=== PATIENT | male | born 1970 | race Caucasian/White ===

== ENCOUNTER → 2017-10-06 07:29 | Outpatient (CLI) | payer OTHER, SELFPAY ==
[2017-10-06 10:28] LABS: AST(SGOT) 16 U/L (15-37); Alanine Aminotransfer ALT/SGPT 39 U/L (16-61); Albumin, Serum 3.8 g/dL (3.2-5.0); Alkaline Phosphatase 77 U/L (45-117); Anion Gap 7 (5-15); BUN 15 mg/dL (7-18); BUN/Creat Ratio 16.5 RATIO (10-20); Calcium,Total 8.8 mg/dL (8.5-10.1); Chloride 107 mmol/L (98-107); Creatinine, Serum 0.91 mg/dL (0.70-1.30); EST Glomerular Filtration Rate 95 mL/min (>60); Est Glom Filt Rate - Afr Amer 115 mL/min (>60); Globulin 3.7 g/dL (2.2-4.2); Glucose 88 mg/dL (74-106); Potassium 3.9 mmol/L (3.5-5.1); Protein, Total 7.5 g/dL (6.4-8.2); Sodium Level 142 mmol/L (136-145)
[2017-10-06 11:07] LABS: Microalbumin,Random Urine < 5.0 mg/L (NO RANGE EST.)
== END ==
PROVIDERS: Family Provider Family Medicine; PCP Family Medicine; Visit Provider Family Medicine
DX: I10 Essential (primary) hypertension (principal)
CPT/HCPCS: 36415; 80053; 82043; 82570

== ENCOUNTER 2019-03-26 19:22 | Observation (INO) | payer OTHER, SELFPAY ==
[2019-03-26] VITALS (7 sets, daily range): BP systolic 134–170; BP diastolic 67–88; PULSE 60–85; RESP 12–19; TEMP 36.3–36.9; O2SAT 94–100; BMI 35.4; BMI 34.9; BMI 35.0
--- NOTE | 2019-03-26 19:29 | RAD_ITS ---
STUDY: X-RAY CHEST REASON FOR EXAM: Male, 48 years old. Chest pain TECHNIQUE: Frontal view of the chest COMPARISON: X-ray chest April 23, 2017 FINDINGS: The lungs are clear. There are no pleural effusions. There is no pneumothorax. The heart is normal in size. The visualized osseous structures are within normal limits. RAD/Chest 1 View (Portable) IMPRESSION: No acute thoracic pathology. Electronically Signed: Royce Asif, at 20:20 EDT Tel , Service support ,
--- NOTE | 2019-03-26 19:29 | EKG12_ITS ---
Test Reason : CP Blood Pressure : / mmHG Vent. Rate : 078 BPM Atrial Rate : 078 BPM P-R Int : 196 ms QRS Dur : 098 ms QT Int : 386 ms P-R-T Axes : 018 021 001 degrees QTc Int : 440 ms Normal sinus rhythm Nonspecific T-Wave Abnormality Confirmed by DEVANTE MARTINS, MAUDE ([id number]), restaurant expeditor BRIANNA CONROY ([id number]) on 03/29/2019 1:02:58 PM Referred By: CIERA Confirmed By:MAUDE LOW MD
[2019-03-26 19:45] LABS: Absolute Lymphocyte Count 2.85 X10^3/uL (0.83-4.51); Absolute Neutrophil Count 5.8 X10^3/uL (2.0-7.7); Basophil# 0.05 X10^3/uL; Basophil% 0.5 % (0-1); Eosinophil# 0.12 X10^3/uL; Eosinophils% 1.3 % (0-5); Hemoglobin 15.7 g/dL (13.0-16.5); Lymphocyte # 2.85 X10^3/ul (4.0); Lymphocyte % 29.8 % (19-41); Mean Corp Hgb Conc 34.1 g/dL (32-36); Mean Corpuscular Hgb 30.7 pg (27.0-32.0); Mean Corpuscular Volume 89.8 fL (80-94); Mean Platelet Vol. 10.6 fl (6.2-12.0); Monocyte# 0.77 X10^3/uL; NRBC Flagged by Analyzer 0 % (0-5); Neutrophil # 5.76 X10^3/uL (2.7-7.7); Neutrophil % 60.2 % (47-70); Platelet Count 216 K/mm3 (150-450); RBC Distribution Width CV 12.1 % (11.6-14.6); Red Blood Count 5.12 M/mm3 (4.6-6.2); White Blood Count 9.6 K/mm3 (4.4-11.0)
[2019-03-26] MEDS: Aspirin 81 MG TAB.CHEW 324 MG PO (19:49)
[2019-03-26 19:59] LABS: Anion Gap 6 (5-15); BUN 14 mg/dL (7-18); Calcium,Total 9.2 mg/dL (8.5-10.1); Chloride 108 mmol/L (98-107); Creatinine, Serum 1.17 mg/dL (0.70-1.30); EST Glomerular Filtration Rate 70 mL/min (>60); Est Glom Filt Rate - Afr Amer 85 mL/min (>60); Estimated Creatinine Clearance 78.86 ml/min; Glucose 109 mg/dL (74-106); Potassium 3.5 mmol/L (3.5-5.1); Sodium Level 141 mmol/L (136-145)
--- NOTE | 2019-03-26 21:25 | PCM.HP.STD ---
Problem List (1) Chest pain Status: Acute History of Present Illness Date of Admission: 03/26/19 Chief Complaint: CHEST PAIN The patient is a 48 year old M with a significant history of hypertension who presented with excruciating progressively worsening substernal chest pain that radiated to his left arm. Initially his chest pain was episodic but it became constant and was progressively worsening. He denies any associated nausea; vomiting or diaphoresis. He describes chest pain as tightness. He complains of shortness of breath has been going on for 1 year but not associated with his chest pain that started on the day of presentation. He occasionally he uses 2 pillows instead of one pillow to sleep. He denies any paroxysmal nocturnal dyspnea. Past Medical History Medical History: Medical History (Last Reviewed 03/27/19 @ 01:58 by Jerry Ferrer MD) HTN (hypertension) I10 Allergies No Known Allergies Allergy (Verified 03/26/19 19:24) Home Medications: Ambulatory Orders Medication Instructions Recorded Losartan Potassium 25 mg PO DAILY 04/23/17 Multivitamins,Therapeutic 1 tablet PO DAILY 04/23/17 [Multivitamin] Ascorbic Acid [Vitamin C] 1,000 mg PO 03/26/19 Fluticasone 0.05% [Flonase Nasal 1 spray NASAL DAILY 03/26/19 [place]] Surgical History: - - Club feet surgery Smoking Status: Never smoker Alcohol: Occasional - *Family History Maternal History Items: Diabetes Paternal History Items: Diabetes, Heart Disease Review of Systems Constitutional: Denies: Chills, Fever, Weight Change HEENT: Denies: Head Aches, Sinus Congestion, Sinus Drainage Cardiovascular: Reports: Chest Pain, Chest Tightness, Orthopnea. Denies: Palpitations Respiratory: Reports: Shortness of Breath. Denies: Cough, Sputum production Gastrointestinal: Denies: Abdominal Pain, Nausea, Vomiting Genitourinary: Denies: Dysuria Musculoskeletal: Denies: Joint Pain, Joint Tenderness Skin: Denies: Rash, Wounds Neurological: Denies: Numbness, Tingling, Focal weakness Psychiatric: Denies: Anxiety, Depression, Homicidal Ideations, Suicidal Ideations Hematologic/ Lymphatic: Denies: Easy Bruising, Easy Bleeding VTE Information - Inpt Only VTE Present on Admission: No VTE Mechan Device Prophylaxis: SCD's VTE Pharm Prophylaxis ordered?: No Patient Problems: Active and Suspected Problems (Last Updated 03/26/19 @ 22:39 by Jerry Ferrer MD) Chest pain (Acute) - Physical Exam General: Alert, Oriented x3, Cooperative HEENT: Atraumatic, PERRLA, EOMI, Normocephalic Neck: Supple, No JVD, Negative Carotid Bruits Lungs: Clear to auscultation, Normal air movement Cardiovascular: Regular rate, No murmurs Abdomen: Bowel Sounds Present, Soft, Non Tender Extremities: No edema, Capillary Refill Less than 3 Seconds Skin: No rashes, No breakdown Musculoskeletal: No Tenderness to Palpation of Joints or Extremities Neurological: Cranial nerves II-XII grossly intact Psych/Mental Status: Normal Affect, Appropriate Vital Signs Temp Pulse Resp BP Pulse Ox 98.4 F 71 15 139/86 H 99 03/26/19 19:23 03/26/19 20:08 03/26/19 20:08 03/26/19 20:08 03/26/19 20:08 Oxygen Flow Rate (L/min) 2 Oxygen Delivery Method Nasal [place] Weight: 111.8 kg Body Mass Index (BMI) 35.4 Laboratory Tests Past 24 Hrs 03/26/19 03/26/19 19:20 19:20 WBC 9.6 RBC 5.12 Hgb 15.7 Hct 46.0 MCV 89.8 MCH 30.7 MCHC 34.1 RDW Std Deviation 40.0 RDW Coeff of Julio César 12.1 Plt Count 216 MPV 10.6 Immature Gran % (Auto) 0.200 Neut % (Auto) 60.2 Lymph % (Auto) 29.8 [place] % (Auto) 8.0 Eos % (Auto) 1.3 Baso % (Auto) 0.5 Absolute Neuts (auto) 5.8 Absolute Lymphs (auto) 2.85 Nucleated RBC % 0 Sodium 141 Potassium 3.5 Chloride 108 H Carbon Dioxide 27.0 Anion Gap 6 BUN 14 Creatinine 1.17 Estim Creat Clear Calc 78.86 Est GFR (MDRD) Af Amer 85 Est GFR (MDRD) Non-Af 70 BUN/Creatinine Ratio 12.0 Glucose 109 H Calcium 9.2 Troponin I < 0.015 Assessment/Plan All Active Problems (Last Updated 03/26/19 @ 22:39 by Jerry Ferrer MD) Chest pain (Acute) The patient is a 48 year old M with a significant history of hypertension who presented with excruciating progressively worsening substernal chest pain. Chest Pain Admit to a monitored bed on PCU CXR independently reviewed confirms no acute cardiopulmonary process. EKG independently reviewed confirms nonspecific T wave abnormalities in inferior leads which is unchanged from previous EKGs. Received aspirin 324 mg in the emergency department. ASA 81 mg p.o. daily ordered SL NTG 0.4 mg prn as needed for chest pain Morphine as needed for pain We will check lipid panel. Initial cardiac enzymes was unremarkable. Serial cardiac enzymes ordered Stat EKG as needed for chest pain Treadmill Stress test in the AM if the cardiac enzymes are negative Transthoracic echocardiogram ordered. Hypertension On presentation his blood pressure was not within goal Losartan continued Trend blood pressures and adjust blood pressure medications. DVT prophylaxis SCD Code Visit OBSV E&M: 07875 Initial observation care L3
--- NOTE | 2019-03-26 21:29 | ED.VIS.GEN ---
History of Present Illness Chief Complaint: Chest Pain Informant: Patient Onset: Today Timing: Continuous Current Severity: Moderate Maximum Severity: Moderate Narrative: She presented with chest pain that started earlier today. It is now almost fully resolved. He describes an ache, radiating to his left arm. He has some risk factors. He denies any fever or chills. No back pain or tearing sensation no DVT or PE risk factors. Past Medical History - Allergies and Home Meds Allergies/Adverse Reactions: Allergies No Known Allergies Allergy (Verified 03/26/19 19:24) Primary Care Physician: Santos David MD [Primary Care Provider] - Prior records reviewed: Yes Past Medical History: - - Hypertension hypercholesterolemia Smoking Status: Never smoker Review of Systems All systems negative except as indicated General: Denies: Fever Cardiovascular: Reports: Chest pain. Denies: Palpitations Respiratory: Denies: Dyspnea, Cough Genitourinary: Denies: Dysuria Musculoskeletal: Denies: Myalgias Skin: Denies: Rash Neurological: Denies: Headache, Weakness Endocrine: Denies: Polyuria Physical Exam Vital Signs/Narrative: Vital Signs Temp Pulse Resp BP Pulse Ox 03/26/19 20:08 71 15 139/86 H 99 03/26/19 19:23 98.4 F 85 18 170/88 H 98 General: Well nourished, Well developed Head: Normocephalic, Atraumatic Eyes: Perrl, EOMI ENT: Moist mucous membranes Neck: Supple Cardiovascular: Regular rate, Regular rhythm Respiratory: No distress Abdomen: Soft, Nontender Back: Nontender Extremities: Nontender Skin: Normal color Neurological: Normal Strength, Normal Sensation Psychological: Normal affect Diagnostic/Tx/Re-eval - Rhythm Strip Rhythm Strip: Sinus Rhythm Rate: 78 Ectopy: None - EKG Initial EKG Interpretation: Sinus Rhythm, - - Normal sinus rhythm with a rate 78. Normal VT and QTc intervals. Interpreted by emergency doctor - Medical Decision Making Patient has a heart score of 4. I had a long conversation with him. I believe he is best served by being admitted to the hospital. He will need a cardiac work-up. He has no DVT risk factors. Disposition admit stable condition ED Disposition - Plan for ED Patient: Diagnosis: Chest pain Referrals: Santos David MD [Primary Care Provider] -
--- NOTE | 2019-03-26 22:17 | ED.RN ---
NO DELTA TROPONIN AT THIS TIME PER MD.
--- NOTE | 2019-03-26 22:43 | EKG12_ITS ---
Test Reason : CP ADMIT Blood Pressure : / mmHG Vent. Rate : 056 BPM Atrial Rate : 056 BPM P-R Int : 176 ms QRS Dur : 104 ms QT Int : 438 ms P-R-T Axes : 026 027 011 degrees QTc Int : 422 ms Sinus bradycardia Otherwise normal ECG When compared with ECG of 23-APR-2017 05:21, No significant change was found Confirmed by SHERI YARBROUGH ([id number]), market editor KERVIN JUAREZ ([id number]) on 04/02/2019 2:43:41 PM Referred By: DR BURGESS Confirmed By:SHERI YARBROUGH
--- NOTE | 2019-03-26 22:43 | ECHOCS_ITS ---
Reason For Study: DYSPNEA/SOB Procedure This was a 2D Doppler, Color Flow transthoracic echocardiogram. The study was technically difficult. Contrast injection was performed. Exam performed in department. Left Ventricle Normal LV size. Left ventricular systolic function is normal. The estimated ejection fraction is 65 %. No evidence for diastolic dysfunction. No regional wall motion abnormalities noted. Right Ventricle Normal RV size. Normal systolic function. Atria Normal left atrium. Normal right atrium. No doppler evidence for ASD. Bubble contrast study negative for right to left interatrial shunt. Mitral Valve There is no mitral annular calcification. Normal mitral valve. Trivial mitral valve insufficiency. Tricuspid Valve Normal tricuspid valve. Trivial tricuspid valve insufficiency. Unable to estimate RV systolic pressure/pulmonary artery pressure due to technically difficult study. Aortic Valve Trisinus/trileaflet aortic valve. Normal aortic valve. Pulmonic Valve The pulmonic valve is not well visualized. Great Vessels Normal sized aortic root. Pericardium/Pleural No pericardial effusion. Medication Diluted definity 2ml given slow IV push to enhance endocardial definition. Performed a rapid injection of agitated mix of 9 cc saline and 1cc air to assess for atrial septal defect. MMode/2D Measurements & Calculations LVIDd: 4.5 cm IVSd: 0.89 cm Ao root diam: 3.2 cm LVIDs: 2.7 cm LVPWd: 0.86 cm RVDd: 3.3 cm FS: 38.4 % LAV(MOD-bp): 42.6 ml LVAd ap4: 36.5 cm2 SV(MOD-sp4): 85.0 ml LAV(MOD-bp) Indexed: 18.8 ml/m2 EDV(MOD-sp4): 125.6 ml LAV(MOD-sp2): 40.4 ml EDV(sp4-el): 130.8 ml LAV(MOD-sp4): 42.4 ml LVAs ap4: 18.4 cm2 ESV(MOD-sp4): 40.5 ml ESV(sp4-el): 41.7 ml EF(MOD-sp4): 67.7 % EF(sp4-el): 68.1 % SV(sp4-el): 89.0 ml LA A4 area: 16.3 cm2 LA dimension(2D): 3.8 cm RA A4 area: 15.3 cm2 Time Measurements MV dec time: 0.19 sec Doppler Measurements & Calculations MV E max nima: 53.2 cm/sec Lat Peak E' Nima: 12.4 cm/sec Med Peak E' Nima: 9.6 cm/sec MV A max nima: 47.7 cm/sec E/E' lat: 4.3 E/E' med: 5.5 MV E/A: 1.1 Ao V2 max: 106.1 cm/sec LV V1 max: 78.5 cm/sec PA V2 max: 87.1 cm/sec Ao max P.5 mmHg LV V1 max P.5 mmHg Interpretation Summary The study was technically difficult. Contrast injection was performed. Left ventricular systolic function is normal. The estimated ejection fraction is 65 %. Trivial mitral valve insufficiency. Trivial tricuspid valve insufficiency. Unable to estimate RV systolic pressure/pulmonary artery pressure due to technically difficult study. No evidence for diastolic dysfunction. Bubble contrast study negative for right to left interatrial shunt. Ordering Physician: Jerry Ferrer Referring Physician: VERENA OLGUIN Performed By: Reyna Watkins RDCS
[2019-03-27 02:06] LABS: Prothrombin Time (Protime)PT. 13.4 SECONDS (11.7-14.9)
[2019-03-27 02:23] LABS: Cholesterol 177 mg/dL (200); High Density Lipoprotein 38 mg/dL; Triglycerides 169 mg/dL; Very Low Density Lipoprotein 34 mg/dL (5-40)
[2019-03-27 03:00] VITALS: PULSE 53
[2019-03-27 04:30] VITALS: BP 110/62; PULSE 55; RESP 16; TEMP 36.6; O2SAT 97
[2019-03-27] MEDS: Aspirin E.C. 81 MG Tablet PO (05:04)
[2019-03-27] MEDS: Losartan Potassium 25 MG Tablet PO (05:04)
--- NOTE | 2019-03-27 05:55 | EKG12_ITS ---
Test Reason : AM EKG Blood Pressure : / mmHG Vent. Rate : 054 BPM Atrial Rate : 054 BPM P-R Int : 200 ms QRS Dur : 100 ms QT Int : 444 ms P-R-T Axes : 009 020 008 degrees QTc Int : 421 ms Sinus bradycardia Otherwise normal ECG When compared with ECG of 26-MAR-2019 23:24, MANUAL COMPARISON REQUIRED, DATA IS UNCONFIRMED Confirmed by SHERI YARBROUGH ([id number]), multimedia editor KERVIN JUAREZ ([id number]) on 04/02/2019 2:44:46 PM Referred By: DR BALL Confirmed By:SHERI YARBROUGH
[2019-03-27] MEDS: Multivitamins,Therapeutic Tablet 1 TABLET PO (09:23)
[2019-03-27 09:28] VITALS: BP 126/77; PULSE 67; RESP 17; TEMP 36.6; O2SAT 95
[2019-03-27 09:43] VITALS: PULSE 69
--- NOTE | 2019-03-27 10:26 | STRESSREP_ITS ---
Stress Test Report Date: 03-27-19 Procedure: Exercise tolerance test/imaging study Indications: Chest pain Consent: Per the patient Procedure: The patient exercised on a Juan Carlos protocol for 9 minutes completing Stage III achieving a peak heart rate of 169 bpm (98 % predicted maximal heart rate) with a peak blood pressure 190/94 mmHg and a peak MET capacity of 10 METs. The baseline ECG demonstrated sinus bradycardia. The peak exercise ECG demonstrated no obvious ECG changes. There was an isolated PVC in recovery. The functional capacity was considered good. There was no complaint of chest discomfort during exercise or recovery. The examination was discontinued secondary to dyspnea and leg discomfort. Impression: 1. Technically adequate (percent predicted maximal heart rate greater than 85%) exercise tolerance test 2. Peak exercise ECG with no obvious ECG changes 3. There was an isolated PVC in recovery 4. Nuclear images pending Myocardial perfusion imaging study: Technique: The patient was injected with 14.7 mCi of technetium 99m Cardiolite and subsequently rest SPECT Cardiolite nuclear imaging was obtained in the horizonta l long, vertical long, and short axis views. The patient exercised on a Juan Carlos protocol for 9 minutes completing Stage III achieving a peak heart rate of 169 bpm (98 % predicted maximal heart rate) with a peak blood pressure 190/94 mmHg and a peak MET capacity of 10 METs. The patient was injected with 44.8 mCi of technetium 99m Cardiolite and subsequently stress SPECT Cardiolite nuclear imaging was obtained in the horizontal long, vertical long, and short axis views. A gated Cardiolite study at peak stress was obtained. Interpretation: Rest and stress SPECT Cardiolite nuclear imaging status post realignment, normalization, and attenuation correction, demonstrates at rest the appearance of an area of diminished tracer uptake in portions of the mid to distal anterior segments which status post stress appears to improve and/or normalize. There are similar type findings on the resting and stress polar map images. There is end systolic thickening and brightening. The gated Cardiolite study demonstrates myocardial thickening and inward wall motion. The reported LVEF is 70 %. Impression: 1. Rest and stress SPECT Cardiolite nuclear imaging demonstrate myocardial perfusion changes at rest which appear to improve status post stress appearing compatible shifting soft tissue attenuation/artifact with no myocardial perfusion changes considered diagnostic for associated stress-induced myocardial ischemia. 2. The gated Cardiolite study reports an LVEF of 70 %. This note was generated with [employer] software. It may contain incorrect words, spelling, and punctuation that were not noted in checking the note before signing.
--- NOTE | 2019-03-27 10:38 | DCINST_ITS ---
- Discharge Diagnoses Current Active Problems: Current Active and Chronic Problems (Last Reviewed 03/27/19 @ 01:58 by Jerry Ferrer MD) Chest pain (Acute) You will use the following diet at home:: No restrictions Your food should be the consistency of: Regular Your liquids should be the consistency of: Regular/Thin Instructions: CHEST PAIN, NonCardiac Allergies/Adverse Reactions: Allergies No Known Allergies Allergy (Verified 03/26/19 19:24) Medications to take at Discharge Losartan Potassium 25 mg PO DAILY 04/23/17 Multivitamins,Therapeutic [Multivitamin] 1 tablet PO DAILY 04/23/17 Ascorbic Acid [Vitamin C] 1,000 mg PO 03/26/19 Fluticasone 0.05% [Flonase Nasal [place]] 1 spray NASAL DAILY 03/26/19 Primary Care Physician: Santos David MD [Primary Care Provider] - Within 2 Weeks Test Results: Test results from this visit will be discussed in further detail at your follow- up appointment, if applicable. Please Follow Up With: Gastroenterology When: 1-2 months Proposed Discharge Date: 03/27/19
[2019-03-27 10:39] VITALS: BP 126/77; PULSE 67; RESP 17; TEMP 36.6; O2SAT 95
--- NOTE | 2019-03-27 10:39 | DS.PCM_ITS ---
Discharge Date and Diagnosis - Problem List Patient Problems: Active and Suspected Problems (Last Reviewed 03/27/19 @ 01:58 by Jerry Fererr MD) Chest pain (Acute) Date of Admission: 03/26/19 Date of Discharge: 03/27/19 - Primary Discharge Diagnosis Active and Suspected Problems (Last Reviewed 03/27/19 @ 01:58 by Jerry Ferrer MD) Chest pain (Acute) Hospital Course and Treatment Imaging Results: 03/27/19 05:55 Nuclear Stress Test - Treadmil [NM] AM (NON MEDS) Operations: None Procedures: None Summary of Care Provided: The patient is a 48 year old M presents with chest pain. Midsternal while he was eating. He underwent a stress that was negative. Suspect GI (esophageal spasm). Patient occasionally with reflux. I advised to wait several hours after eating before going to sleep. Follow up with GI as outpt. [] Patient Problems: Active and Suspected Problems (Last Reviewed 03/27/19 @ 01:58 by Jerry Ferrer MD) Chest pain (Acute) - Physical Exam General: Alert, No apparent distress HEENT: Atraumatic, Normocephalic Oral: Moist Mucosa, No Gingival or Mucosal Lesions/ Ulcerations Neck: No Nodes, Thyroid Normal Size and Texture Lungs: Clear to auscultation, Normal air movement, No rhonchi, No wheeze Cardiovascular: Regular rate, Regular Rhythm, Normal S1, Normal S2, No murmurs Abdomen: Bowel Sounds Present, Soft, Non Tender, Non-Distended, No Hepato- splenomegaly Psych/Mental Status: Normal Affect, Appropriate Vital Signs Temp Pulse Resp BP Pulse Ox 36.6 C 69 17 126/77 H 95 03/27/19 09:28 03/27/19 09:43 03/27/19 09:28 03/27/19 09:28 03/27/19 09:28 Oxygen Flow Rate (L/min) 2 Oxygen Delivery Method Room Air Weight: 110.6 kg Body Mass Index (BMI) 34.9 Intake and Output for Last 24 Hours 03/25/19 03/26/19 03/27/19 23:59 23:59 23:59 Intake Total 120 / 120 60 / 60 Balance 120 / 120 60 / 60 Laboratory Tests Past 24 Hrs 03/26/19 03/26/19 03/26/19 19:20 19:20 23:03 WBC 9.6 RBC 5.12 Hgb 15.7 Hct 46.0 MCV 89.8 MCH 30.7 MCHC 34.1 RDW Std Deviation 40.0 RDW Coeff of Julio César 12.1 Plt Count 216 MPV 10.6 Immature Gran % (Auto) 0.200 Neut % (Auto) 60.2 Lymph % (Auto) 29.8 [place] % (Auto) 8.0 Eos % (Auto) 1.3 Baso % (Auto) 0.5 Absolute Neuts (auto) 5.8 Absolute Lymphs (auto) 2.85 Nucleated RBC % 0 PT INR Sodium 141 Potassium 3.5 Chloride 108 H Carbon Dioxide 27.0 Anion Gap 6 BUN 14 Creatinine 1.17 Estim Creat Clear Calc 78.86 Est GFR (MDRD) Af Amer 85 Est GFR (MDRD) Non-Af 70 BUN/Creatinine Ratio 12.0 Glucose 109 H Calcium 9.2 Troponin I < 0.015 < 0.015 Triglycerides Cholesterol LDL Cholesterol VLDL Cholesterol HDL Cholesterol 03/27/19 03/27/19 03/27/19 01:51 01:51 01:51 WBC RBC Hgb Hct MCV MCH MCHC RDW Std Deviation RDW Coeff of Julio César Plt Count MPV Immature Gran % (Auto) Neut % (Auto) Lymph % (Auto) [place] % (Auto) Eos % (Auto) Baso % (Auto) Absolute Neuts (auto) Absolute Lymphs (auto) Nucleated RBC % PT 13.4 INR 1.0 Sodium Potassium Chloride Carbon Dioxide Anion Gap BUN Creatinine Estim Creat Clear Calc Est GFR (MDRD) Af Amer Est GFR (MDRD) Non-Af BUN/Creatinine Ratio Glucose Calcium Troponin I < 0.015 Triglycerides 169 Cholesterol 177 LDL Cholesterol 105 VLDL Cholesterol 34 HDL Cholesterol 38 L Discharge Diet: No Restrictions Home Medications: Medications to take at Discharge Losartan Potassium 25 mg PO DAILY 04/23/17 Multivitamins,Therapeutic [Multivitamin] 1 tablet PO DAILY 04/23/17 Ascorbic Acid [Vitamin C] 1,000 mg PO 03/26/19 Fluticasone 0.05% [Flonase Nasal [place]] 1 spray NASAL DAILY 03/26/19 Primary Care Physician: Santos aDvid MD [Primary Care Provider] - Within 2 Weeks Please Follow Up With: Gastroenterology When: 1-2 months Patient Instructions: CHEST PAIN, NonCardiac Disposition: Home Minutes spent on discharge:: 25 Patient Condition:: Good Medical Necessity - Tobacco Use Smoking Status: Never smoker Meaningful Use Info Meaningful Use Diagnoses (Choose all that apply): None applicable Code Visit OBSV E&M: 06968 Observation care discharge
--- NOTE | 2019-03-27 11:37 | PHA.DC.MR ---
Pharmacy Service has performed discharge medication reconciliation for this patient. No new medications ordered at time of discharge. Medications reviewed are from previously reported home medications. The patient's discharge medication list was reviewed for discrepancies and discrepancies were resolved. Home Medications Losartan Potassium 25 mg PO DAILY 04/23/17 Multivitamins,Therapeutic [Multivitamin] 1 tablet PO DAILY 04/23/17 Ascorbic Acid [Vitamin C] 1,000 mg PO 03/26/19 Fluticasone 0.05% [Flonase Nasal [place]] 1 spray NASAL DAILY 03/26/19
== END 2019-03-27 12:00 | disposition home or self-care (01) ==
LOC: ED 19:45 → PCU 22:42
PROVIDERS: Admitting Provider Hospitalist; Emergency Provider Emergency Medicine; Family Provider Family Medicine; PCP Family Medicine
DX: R07.89 Other chest pain (principal); E78.00 Pure hypercholesterolemia, unspecified; I10 Essential (primary) hypertension; Z79.899 Other long term (current) drug therapy
CPT/HCPCS: 36415; 71045; 78452; 80048; 80061; 84484; 85025; 85610; 93005; 93017; 93306; 99218; 99285; A9500; Q9957; A4216; C8929; G0378

== ENCOUNTER → 2019-04-17 08:12 | Outpatient (CLI) | payer OTHER, SELFPAY ==
[2019-03-26 22:34] VITALS: BMI 34.9
--- NOTE | 2019-04-17 08:30 | RAD_ITS ---
STUDY: AIR-CONTRAST UPPER GI SERIES AND SMALL BOWEL FOLLOW-THROUGH EXAMINATION. REASON FOR EXAM: Male, 48 years old. Chest pain. FLUOROSCOPY TIME (if supplied): (0:53) minutes/seconds TECHNIQUE: The patient ingested barium. Multiple images of the esophagus, stomach and duodenum were obtained. From this, a small bowel follow-through examination was obtained. COMPARISON: None. FINDINGS: A small hiatal hernia is seen. There is no evidence of gastroesophageal reflux no evidence of obstruction. The patient ingested a 12 mm tablet of barium without any difficulty. The stomach and duodenum are unremarkable. There is no evidence of ulceration. No mass lesion is present. A small bowel follow-through examination was then obtained. The small bowel transit is normal. No evidence of intrinsic or extrinsic small bowel disease. The terminal ileum is unremarkable. RAD/Upper GI/w Small Bowel IMPRESSION: Small sliding hiatal hernia without gastroesophageal reflux. Electronically Signed: Jarett Kaur, at 13:10 EDT , Service support ,
== END ==
PROVIDERS: Family Provider Family Medicine; PCP Family Medicine; Referring Provider Family Medicine; Visit Provider Family Medicine
DX: K44.9 Diaphragmatic hernia without obstruction or gangrene (principal); R10.13 Epigastric pain
CPT/HCPCS: 74249

== ENCOUNTER → 2020-03-18 09:12 | Outpatient (CLI) | payer OTHER, SELFPAY ==
[2019-03-26 22:34] VITALS: BMI 34.9
[2020-03-18 12:18] LABS: Hematocrit 46.5 % (40-54); Hemoglobin 15.2 g/dL (13.0-16.5); Mean Corp Hgb Conc 32.7 g/dL (32-36); Mean Corpuscular Hgb 29.8 pg (27.0-32.0); Mean Corpuscular Volume 91.2 fL (80-94); Mean Platelet Vol. 11.7 fl (6.2-12.0); Platelet Count 193 K/mm3 (150-450); RBC Distribution Width CV 12.6 % (11.6-14.6); RBC Distribution Width SD 42.1 fl (35.1-43.9); White Blood Count 5.5 K/mm3 (4.4-11.0)
[2020-03-18 12:39] LABS: ALB/GLOB Ratio 1.1 RATIO (0.9-2.4); AST(SGOT) 18 U/L (15-37); Alanine Aminotransfer ALT/SGPT 36 U/L (16-61); Alkaline Phosphatase 80 U/L (45-117); Anion Gap 7 (5-15); BUN 12 mg/dL (7-18); BUN/Creat Ratio 11.9 RATIO (10-20); CRP 4.09 mg/L (0.0-3.0); Calcium,Total 8.9 mg/dL (8.5-10.1); Chloride 107 mmol/L (98-107); Cholesterol 226 mg/dL (200); Creatinine, Serum 1.01 mg/dL (0.70-1.30); EST Glomerular Filtration Rate 83 mL/min (>60); Est Glom Filt Rate - Afr Amer 100 mL/min (>60); Globulin 3.7 g/dL (2.2-4.2); Glucose 94 mg/dL (74-106); High Density Lipoprotein 46 mg/dL; Lipase 140 U/L (73-393); Protein, Total 7.7 g/dL (6.4-8.2); Sodium Level 141 mmol/L (136-145); Triglycerides 125 mg/dL; Very Low Density Lipoprotein 25 mg/dL (5-40)
== END ==
PROVIDERS: PCP Family Medicine; Visit Provider Family Medicine
DX: R10.11 Right upper quadrant pain (principal)
CPT/HCPCS: 36415; 80053; 80061; 83690; 85027; 86140

== ENCOUNTER → 2020-03-22 08:50 | Outpatient (CLI) | payer OTHER, SELFPAY ==
[2019-03-26 22:34] VITALS: BMI 34.9
--- NOTE | 2020-03-22 09:12 | US_ITS ---
STUDY: ABDOMINAL ULTRASOUND - RIGHT UPPER QUADRANT REASON FOR VISIT: Male, 49 years old RUQ PAIN- X 2 WEEKS TECHNIQUE: Ultrasound evaluation of the right upper quadrant was performed with real-time and static vargas-scale imaging. TECHNICAL QUALITY: Adequate. COMPARISON: None. FINDINGS: Liver: The liver measures 15 cm. There is normal echogenicity of the liver. The bile ducts are within normal limits. There is hepatic color flow. The direction of portal flow is hepatopetal. There is no demonstrated mass lesion. Gallbladder: There is a contracted gallbladder. The gallbladder wall measures 2.9 mm. There is a negative sonographic Gustafson''s sign. There is no pericholecystic fluid. There are multiple echogenic structures within the gallbladder, consistent with multiple gallstones. A few comet tail artifacts are identified compatible with adenomyomatosis. Common Bile Duct (C.B.D.): The common bile duct measures 4 mm. Pancreas: There is normal echogenicity of the visualized pancreas. There is no demonstrated pancreatic mass or cyst. Right Kidney: Normal size of the right kidney. The right kidney measures 11.8 x 6.0 x 4.3 cm. Normal renal cortex. The right cortex measures 1.3 cm. There is no demonstrated renal mass or cyst. There is no right hydronephrosis. US/Abdomen Limited IMPRESSION: 1. Cholelithiasis without sonographic evidence of acute cholecystitis. 2. Adenomyomatosis. Electronically Signed: Nicolas Caballero MD ([place]) at 14:36 EDT , Service support ,
== END ==
PROVIDERS: PCP Family Medicine; Referring Provider Family Medicine; Visit Provider Family Medicine
DX: R10.11 Right upper quadrant pain (principal)
CPT/HCPCS: 76705

== ENCOUNTER 2020-04-07 09:26 | Day surgery (SDC) | payer OTHER, SELFPAY ==
[2020-03-28 14:37] VITALS: BMI 34.9
--- NOTE | 2020-03-31 16:06 | EKG12_ITS ---
Test Reason : PRE OP Blood Pressure : / mmHG Vent. Rate : 059 BPM Atrial Rate : 059 BPM P-R Int : 192 ms QRS Dur : 102 ms QT Int : 432 ms P-R-T Axes : 006 030 003 degrees QTc Int : 427 ms Sinus bradycardia Otherwise normal ECG Confirmed by MODESTO MARTINS, KAYLEN ([id number]), editorial manager BRIANNA CONROY ([id number]) on 04/01/2020 9:22:13 AM Referred By: Troy Smith Confirmed By:KAYLEN SALVADOR MD
[2020-04-07] VITALS (9 sets, daily range): BP systolic 103–144; BP diastolic 56–81; PULSE 52–76; RESP 16; TEMP 36.2–36.6; O2SAT 92–99; BMI 35.8
--- NOTE | 2020-04-07 | GALL_PTH ---
PATIENT: EVELYN LANGFORD [place] [facility] [id number] AGE/SX: 49/M ROOM: RE04/07/[address]: Dr. Troy Smith MD : [id number] BED: DIS: 04/07/2020 SPEC #: [id number] RECD: 04/07/20 13:00 STATUS: KYMBERLY KATI #: [id number] SPENSER: 04/07/20 00:[address]: Troy Smith DEPT: SURGICAL PATHOLOGY RECD BY: Ashok Mayen ENTERED: 04/07/20 13:00 SP TYPE: ART KEY DR: Dr. Santos David MD Tissues: Gallbladder, NOS Procedures: Surgery Specimen Level III HEADER OPERATION: Laparoscopic cholecystectomy with IOC PRE-OP DIAGNOSIS: Cholelithiasis TISSUE SUBMITTED: Gallbladder MICROSCOPIC DIAGNOSIS Gallbladder, cholecystectomy: Chronic cholecystitis, cholelithiasis and focal cholesterolosis. SJ:jazmin 9/1/20 MICROSCOPIC DESCRIPTION Slides are reviewed. GROSS DESCRIPTION Received is one container labeled with the patient's name and designated gallbladder. The specimen consists of a gallbladder measuring 9.5 cm in length and up to 3.5 cm in diameter. The external surface is pink-hernández, smooth and glistening for the most part. Focally it is granular, hemorrhagic and contains cautery artifact. The gallbladder contains green-yellow mucoid bile and three variably sized yellowish-green stones measuring 1 to 2.5 cm in greatest dimension. Multiple smaller yellowish stones are also noted measuring in aggregate 1 x 0.5 x 0.5 cm and 0.1 to 0.2 cm in greatest dimension. The mucosa is bile-stained and without any mass lesions. The gallbladder wall measures 0.2 to 1 cm in thickness. Increased amount of subserosal fat is noted. Oyster Sorter sections from the gallbladder and the cystic duct are submitted in one cassette. / SJ:jazmin 04/07/20 TC:3 CPT: 86545
[2020-04-07] MEDS: Lactated Ringers 1,000 ML 100 ML IV (10:00)
--- NOTE | 2020-04-07 10:47 | PCM.HP.BLA ---
Problem List (1) Cholelithiasis Status: Acute Qualifiers: Cholelithiasis location: gallbladder Cholecystitis presence: without cholecystitis Biliary obstruction: without biliary obstruction Qualified Code(s): K80.20 - Calculus of gallbladder without cholecystitis without obstruction History and Physical Date of Admission: 04/07/20 Intake Vital Signs 03/28/20 Height 5 ft 9 in 03/28/20 Weight: 239 lb 03/28/20 BMI 35.2 03/28/20 BP 165/91 H 03/28/20 Blood Pressure Location Rt brachial 03/28/20 Position Sitting 03/28/20 Respiration 18 Intake Visit Reasons: GALLSTONES Chief Complaint: gallstones Scrum Coach Required: No Is patient in pain?: No Allergies No Known Allergies Allergy (Verified 03/28/20 14:36) Medications Losartan Potassium 25 mg PO DAILY 04/23/17 [History Confirmed 03/28/20] Multivitamins,Therapeutic [Multivitamin] 1 tab PO DAILY 04/23/17 [History Confirmed 03/28/20] Ascorbic Acid [Vitamin C] 1,000 mg PO 03/26/19 [History Confirmed 03/28/20] Fluticasone 0.05% [Flonase Nasal [place]] 1 spray NASAL DAILY 03/26/19 [History Confirmed 03/28/20] loratadine 10 mg capsule 10 mg PO DAILY 03/28/20 [History Confirmed 03/28/20] PFS Medical History Environmental allergies (Acute) High cholesterol (Acute) HTN (hypertension) (Chronic) Surgical History S/P bilateral foot surgery (Acute) S/P wisdom tooth extraction (Acute) Status post vasectomy (Acute) Social History (Updated 03/28/20 @ 15:[address] Troy Smith MD) Smoking Status: Never smoker HPI HPI HPI: EVELYN LANGFORD, is a 49 M who presents to the office today for HPI HPI HPI: EVELYN LANGFORD, is a 49 M who presents to the office today for Right upper quadrant pain. The patient has been having right upper quadrant pain especially with eating. Patient also has intermittent bouts of extreme pain. No nausea or vomiting. ROS General General: No weight change or fatigue Cardio Cardiovascular: No murmur, pacemaker, heart disease, atrial fibrillation, high blood pressure, heart attack, heart stent, palpitations, shortness of breat with exertion or chest pain Psych Psychiatric: No depression or anxiety Resp Respiratory: No shortness of breath, No sleep apnea, No cough, No COPD, No asthma, No emphysema, No wheezing Gastro Gastrointestinal: No abdominal pain, No nausea or vomiting, No diarrhea, No constipation, No blood in stool, No acid reflux, No hemorrhoids, No ulcers, No gallbladder problem, No black,tarry stools Domenic Hematologic: No blood thinners Exam Const General: cooperative Orientation: alert, oriented x3 Resp Effort & Inspection: normal respiratory effort Auscultation: clear to auscultation bilaterally Cardio Rate: regular rate Rhythm: regular rhythm Heart Sounds: no murmurs GI Inspection: non-distended Palpation: soft, nontender Assessment & Plan Problems 1. Calculus of gallbladder without cholecystitis without obstruction K80.20 Plan The patient has large gallstones in his gallbladder and symptoms of biliary colic. I recommended laparoscopic cholecystectomy to the patient. I discussed the procedure in detail with the patient. I discussed the risks, benefits, and alternatives of the procedure. I discussed the risks including but not limited to bleeding, infection, injury to surrounding organs such as the liver, bile duct, bowels. I did discuss the possibility of having to convert to an open procedure as well as the possibility that if any injuries occurred this may necessitate further surgery at a tertiary care center. We discussed the current risks associated with COVID-19. While it is understood that there is a community spread of COVID-19, the risk of nuno COVID-19 while at [facility] ([facility]) is very low; however, the risk cannot be completely mitigated because of the community spread of the disease. We discussed in detail the risk of exposure to and/or potential harm posed by the COVID-19 virus with having a surgery/procedure at this time versus the risk of delaying the surgery/procedure. It is not possible to know either the risk of delaying the surgery or procedure or chance of getting an infection with perfect accuracy, but a joint decision was made to proceed at this time with the scheduled surgery/procedure as indicated on the consent form. Patient was notified that we will need to comply with any screening or testing [facility] wishes to perform or that surgery may be delayed for any positive results. Troy Smith MD Pager: [facility] [address] [place] [address], [address] [place] [address] Office: I have re-examined the patient. There are no clinical changes since date of exam.
--- NOTE | 2020-04-07 11:19 | RAD_ITS ---
STUDY: INTRAOPERATIVE CHOLANGIOGRAM. REASON FOR EXAM: Male, 49 years old. Pain FLUOROSCOPY TIME (if supplied): ( 15.2 seconds ) minutes/seconds. A cine loop consisting of 34 images was performed. TECHNIQUE: An intraoperative cholangiogram was performed by the surgeon. Imaging was submitted. COMPARISON: None. FINDINGS: The intrahepatic and extrahepatic biliary ducts are unremarkable. No intraluminal filling defect is seen. There is free flow of contrast into the duodenum. RAD/Cholangiogram/ O R,Initial IMPRESSION: Unremarkable intraoperative cholangiogram. Electronically Signed: Jarett Kaur, at 14:42 EDT , Service support ,
[2020-04-07] MEDS: Bupiv/Epi 0.25% 30 ML Vial (11:51)
--- NOTE | 2020-04-07 12:11 | PCM.OPRPT ---
Problem List (1) Cholelithiasis Status: Acute Qualifiers: Cholelithiasis location: gallbladder Cholecystitis presence: without cholecystitis Biliary obstruction: without biliary obstruction Qualified Code(s): K80.20 - Calculus of gallbladder without cholecystitis without obstruction Report of Operation Date of Procedure: 04/07/20 Pre-Operative Diagnosis: Cholelithiasis Post-Operative Diagnosis: Same Surgery/Procedure Performed:: Laparoscopic cholecystectomy with cholangiogram Specimen's removed: Gallbladder and contents Description of Procedure: After obtaining informed consent patient was brought back to the operating room. General anesthesia was induced. The abdomen was prepped and draped in usual sterile fashion. A small midline incision was made superior to the umbilicus and deepened to the level of fascia. The fascia was elevated and incised. Next the peritoneum was elevated and incised in the same fashion. Finger sweep was performed and the Boyer trocar was placed into the abdomen. The balloon was inflated. The abdomen was inflated to 15 mmHg. Next a camera was introduced into the abdomen and the abdomen was inspected. Next under direct visualization three 5-mm ports were placed one subxiphoid and 2 subcostal. Next the gallbladder was elevated and retracted toward the right shoulder. The peritoneum was stripped from the gallbladder. The infundibulum was located and retracted laterally. Next the triangle of Calot was dissected and the cystic duct and cystic artery were identified. Cholangiograms were performed. The Hernandez clamp was used to clamp across the infundibulum and the catheter needle was inserted into the gallbladder. Under fluoroscopy contrast was instilled into the gallbladder and the common duct, cystic duct as well as proximal hepatic ducts were identified. There was good filling of the duodenum. There were no filling defects noted in the common bile duct. The clamp was removed as well as the needle and the infundibulum was grasped once more. Three hemolock clips were placed across the cystic duct. The cystic duct was then divided leaving 2 clips on the stump. The cystic artery was clipped and divided in the same fashion. The hook cautery was then used to take the gallbladder off of the gallbladder bed. Hemostasis was obtained. Gallbladder fossa was irrigated and no active bleeding or bile leakage was noted. Next the camera was introduced in the subxiphoid port. An Endopouch bag was placed through the umbilical port and the gallbladder was placed into it. The gallbladder was then removed through the umbilical incision. The camera was then reinserted through the umbilical port. The gallbladder fossa was inspected once more and noted to be hemostatic with no leaking bile. The abdomen was suctioned dry. The 5 mm ports were removed under direct visualization. The umbilical port was then removed and the air was removed from the abdomen. Next using an 0 Vicryl suture the umbilical fascia was closed in a [id number] fashion. The umbilical port site was irrigated local anesthetic was administered to all the incisions. All the incisions were closed with interrupted subcuticular 4-0 Monocryl sutures followed by Steri-Strips and dressings. The patient was awoken and taken to PACU in stable condition. - Admit VTE Documentation VTE Mechan Device Prophylaxis: SCD's
--- NOTE | 2020-04-07 12:13 | PCM.DC.GB ---
Discharge Diet: Light diet - advance as tolerated Discharge Activity: Return to Normal Activity, May Not Drive - for 2-3 days or while taking narcotic pain medicataions., - - Do not drive, work heavy equipment or sign legal documents for 24 hours. May shower in (days): 1 - with the bandage in place. Lifting Restrictions: 20 lbs for 2 weeks Additional Activity Instructions:: Pain medication may cause nausea. You should typically eat light foods as you take your pain medications. Pain medication may also cause constipation. If this is a problem for you, please discuss with your doctor. Call your doctor if your incision/area has: Continuous Slow Oozing, Sudden Increased Bleeding, Increased Pain/ Swelling, Increased Redness, Foul Smelling Discharge, Fever of 101 or Higher Call your doctor if you observe: Fever of 101 or Higher Suture Line Care: Avoid Pulling/Pushing, Avoid Pinching/Bending Additional Dressing/Incision Instructions:: Leave operative bandaids on for 2 days. When you remove dressing, leave Steri-Strips on until your follow-up appointment, or until the Steri-Strips fall off on their own. Allergies/Adverse Reactions: Allergies No Known Allergies Allergy (Verified 04/07/20 09:38) Medications to take at Discharge Losartan Potassium 25 mg PO QHS 04/23/17 Multivitamins,Therapeutic [Multivitamin] 1 tab PO DAILY 04/23/17 Ascorbic Acid [Vitamin C] 1,000 mg PO DAILY 03/26/19 Fluticasone 0.05% [Flonase Nasal [place]] 1 spray NASAL DAILY PRN 03/26/19 loratadine 10 mg capsule 10 mg PO DAILY 03/28/20 Oxycodone HCl/Acetaminophen [Percocet 5-325 mg Tablet] 1 - 2 tab PO Q6H PRN 5 Days #30 tablet 04/07/20 The following prescriptions were given: Oxycodone HCl/Acetaminophen [Percocet 5-325 mg Tablet] 1 - 2 tab PO Q6H PRN 5 Days #30 tablet PRN Reason: Pain Score 4-10/10 Transmission Status: Sent to [facility] Test Results: Test results from this visit will be discussed in further detail at your follow-up appointment, if applicable. Please Follow Up With: Troy Smith MD When: Please call to schedule 2 week follow up appointment. [phone]
[2020-04-07] MEDS: oxyCODONE 5 MG Tablet PO (13:08)
[2020-04-07] MEDS: Acetaminophen 325 MG Tablet PO (13:08)
== END 2020-04-07 15:48 | disposition home or self-care (01) ==
LOC: SDC 09:26 → AC 09:26
PROVIDERS: Anesthesiology; PCP Family Medicine; Referring Provider Surgery; Visit Provider Surgery
PROC: (CPT 47610; principal; 2020-04-07 10:40)
DX: K80.10 Calculus of gallbladder with chronic cholecystitis without obstruction (principal); I10 Essential (primary) hypertension; E78.00 Pure hypercholesterolemia, unspecified; J30.2 Other seasonal allergic rhinitis; Z79.899 Other long term (current) drug therapy; Z20.828 Contact with and (suspected) exposure to other viral communicable diseases
CPT/HCPCS: 00790; 47563; 74300; 76000; 87635; 88304; 93005; 94799; J7120; J2405; U0003

== ENCOUNTER 2021-02-02 18:58 | Emergency (ER) | payer OTHER, SELFPAY ==
[2020-04-07 09:41] VITALS: BMI 35.8
[2021-02-02 18:59] VITALS: BP 165/85; PULSE 81; RESP 19; TEMP 36.8; O2SAT 98; BMI 34.4
[2021-02-02 19:39] VITALS: BP 129/77; PULSE 70; RESP 21; O2SAT 94
--- NOTE | 2021-02-02 20:13 | EKG12_ITS ---
Test Reason : CP Blood Pressure : / mmHG Vent. Rate : 080 BPM Atrial Rate : 080 BPM P-R Int : 188 ms QRS Dur : 096 ms QT Int : 392 ms P-R-T Axes : 028 046 009 degrees QTc Int : 452 ms Normal sinus rhythm Normal ECG Confirmed by DEVANTE MARTINS, MAUDE ([id number]), social media editor BRIANNA CONROY ([id number]) on 02/05/2021 7:51:14 AM Referred By: Confirmed By:MAUDE LOW MD
--- NOTE | 2021-02-02 20:14 | ED.VIS.CHEST ---
HPI History of Present Illness Chief Complaint: Chest Pain Detail of Chief Complaint: Chest pain that started approximately 6:45 PM Informant: patient Onset/Context/Timing Activity at onset: sudden Timing: Continuous Quality: Positive for Burning and Sharp Current Severity: 0/10 Associated Symptoms: Positive for Lightheadedness; Negative for Nausea, Vomiting, Diaphoresis, Dyspnea, Cough and Fever Narrative Narrative: Patient presents to the emergency department with complaint of chest discomfort that started approximately 6:45 PM this evening. Patient states that he was sitting in a chair looking at a laptop when the pain started suddenly. Patient states the pain started initially in the midaxillary line and radiated towards the center of his chest. He describes it as sharp and burning and at one point he felt some heaviness but he thinks that he panicked and became anxious afterwards. Patient states that he had a stress test and echocardiogram a year and a half ago that were normal. He denies any exertional symptoms leading up to this. He states that he came home today and felt a little bit lightheaded. Patient has history of hypertension and high cholesterol. Patient states that he had COVID-19 in August and has since been vaccinated with both doses of the vaccine. Patient had URI symptoms for 2 weeks that he just got over about a week ago. Patient denies recent travel or surgery. No history of PE or DVT. No significant family history of heart disease. Prior Similar Symptoms: No [facility] Medical History (Updated 02/02/21 @ 22:[address] Terri Doyle, DO) Environmental allergies High cholesterol HTN (hypertension) Home Medications losartan 25 mg PO QHS 04/23/17 [History Last Taken Unknown] multivitamin with folic acid 1 tab PO DAILY 04/23/17 [History Last Taken Unknown] ascorbic acid (vitamin C) 1,000 mg PO DAILY 03/26/19 [History Last Taken 03/24/19 09:00 1000 mg] fluticasone propionate 1 spray NASAL DAILY PRN 03/26/19 [History Last Taken 03/25/19 21:00] loratadine 10 mg capsule 10 mg PO DAILY 03/28/20 [History Last Taken Unknown] Allergy/AdvReac Type Severity Reaction Status Date / Time No Known Allergies Allergy Verified 02/02/21 19:00 Surgical History Hx of cholecystectomy S/P bilateral foot surgery S/P wisdom tooth extraction Status post vasectomy Social History (Updated 04/22/20 @ 14:[address] Troy Smith MD) Smoking Status: Never smoker ROS ROS ED Review of Systems ROS Unobtainable: other Constitutional Constitutional ED: Reports lethargy; Denies chills, fever(s), sweats or weight loss Eyes Eyes: Denies blurry vision, change in vision or diplopia ENT ENT ED: Denies rhinorrhea or sore throat Cardiovascular Cardiovascular: Reports chest pain and racing heartbeat; Denies orthopnea Respiratory/Chest Respiratory/Chest: Reports dyspnea and dyspnea on exertion; Denies cough, orthopnea or sputum Gastrointestinal Gastrointestinal: Denies abdominal pain, diarrhea, nausea or vomiting Genitourinary Genitourinary ED: Denies dysuria, hematuria or urinary frequency Musculoskeletal Musculoskeletal: Denies arthralgias, back pain, myalgias or neck pain Integumentary Denies abscess, Abrasions or rash Neurologic Neurologic: Denies headache(s) or weakness Psychiatric Psychiatric: Denies anxiety, depression or suicidal thoughts Endocrine Endocrinology: Denies polydipsia, polyphagia or polyuria Hematologic/Lymphatic Hematologic/Lymphatic: Denies easy bleeding, easy bruising or lymphadenopathy Allergic/Immunologic Allergic/Immunologic ED: Denies mouth swelling, tongue swelling or urticaria EXAM Physical Exam Const Vital Signs: 02/02/21 18:59 02/02/21 19:39 02/02/21 20:13 Temperature 98.2 F Temperature Source Temporal Pulse Rate 81 70 Respiratory Rate 19 H 21 H Blood Pressure 165/85 H 129/77 H Blood Pressure Mean 111 94 Pulse Ox 98 94 Oxygen Delivery Method Room Air Room Air Room Air 02/02/21 21:00 Temperature Temperature Source Pulse Rate 68 Respiratory Rate 16 Blood Pressure 121/89 H Blood Pressure Mean 99 Pulse Ox 100 Oxygen Delivery Method Room Air Positive well nourished and well developed General Appearance ED: well developed and NAD HEENT Reports TM's clear and moist mucous membranes normocephalic and atraumatic; Negative for trauma or tenderness Tympanic Membrane ED: Yes TM's clear Eyes PERRL and EOMs intact bilaterally General Eye ED: Negative for pale conjunctiva or scleral icterus Neck no lymphadenopathy, supple and no JVD General: Negative for tenderness Chest Wall inspection of chest normal and palpation of chest normal Chest: Negative for tenderness Resp normal respiratory effort and clear to auscultation bilaterally Effort and Inspection: Negative for respiratory distress or pain with movement Auscultation: Negative for rhonchi, wheezes or diminished lung sounds Cardio regular rate, regular rhythm, S1 normal heart sound, S2 normal heart sound and no murmurs Peripheral Pulses: pulses 2+ throughout GI normal to inspection, nondistended, normoactive bowel sounds, soft to palpation, non-tender, non-distended and no masses Back/Spine no CVA tenderness and no thoracic nor lumbar tenderness Extremity normal to inspection General Extremety ED: Negative for edema General Extremity: Negative for edema Neuro oriented x3, CN's II-XII intact bilaterally, no sensory deficits noted and gait normal Sensorium / Orientation: awake, alert, oriented to person, oriented to place and oriented to time Motor Exam: strength 5/5 throughout and strength abnormal Psych mental status grossly normal Skin no rashes or lesions noted and no wounds Heart Score History: Slightly/Non-Suspicious ECG: Normal Age: >45 - <65 years Risk Factors: 1 or 2 Risk Factors Troponin: </= Normal Limit Score: 2 MDM MDM MDM Narrative Medical decision making narrative: Patient remained pain-free in the department. Delta troponin II hours obtained was negative. Patient has a heart score of 2 and feel he is low risk for acute coronary syndrome. He will follow-up with primary care physician. Patient advised to return if worsening pain, increasing shortness of breath, exertional dyspnea, or condition should worsen anyway. Lab Data Attestation: I reviewed the patient's lab results. Labs: Laboratory Results - last 24 hr 02/02/21 02/02/21 02/02/21 19:45 19:45 20:20 WBC 6.4 RBC 4.49 L Hgb 13.4 Hct 40.4 MCV 90.0 MCH 29.8 MCHC 33.2 RDW Std Deviation 40.6 RDW Coeff of Julio César 12.3 Plt Count 200 MPV 11.3 Immature Gran % (Auto) 0.300 Neut % (Auto) 61.6 Lymph % (Auto) 26.5 [place] % (Auto) 9.0 Eos % (Auto) 2.0 Baso % (Auto) 0.6 Absolute Neuts (auto) 4.0 Absolute Lymphs (auto) 1.70 Nucleated RBC % 0 D-Dimer Quant (PE/DVT) 0.45 Sodium 140 Potassium 3.4 L Chloride 106 Carbon Dioxide 27.0 Anion Gap 7 BUN 12 Creatinine 1.03 Estim Creat Clear Calc 87.61 Est GFR (MDRD) Af Amer 98 Est GFR (MDRD) Non-Af 81 BUN/Creatinine Ratio 11.7 Glucose 132 H Calcium 8.5 Troponin I High Sens 4.8 02/02/21 21:50 WBC RBC Hgb Hct MCV MCH MCHC RDW Std Deviation RDW Coeff of Julio César Plt Count MPV Immature Gran % (Auto) Neut % (Auto) Lymph % (Auto) [facility] % (Auto) Eos % (Auto) Baso % (Auto) Absolute Neuts (auto) Absolute Lymphs (auto) Nucleated RBC % D-Dimer Quant (PE/DVT) Sodium Potassium Chloride Carbon Dioxide Anion Gap BUN Creatinine Estim Creat Clear Calc Est GFR (MDRD) Af Amer Est GFR (MDRD) Non-Af BUN/Creatinine Ratio Glucose Calcium Troponin I High Sens 5.4 Radiography Chest X-Ray - ED: 1 View Diagnostic Testing: Radiology Impression Chest X-Ray 02/02/21 20:30 IMPRESSION: No acute radiographic abnormalities. Electronically Signed: Gen Kennedy MD at 21:09 EDT Tel , Service support , X-ray obtained interpreted by myself as no acute disease process. EKG Initial EKG: Attestation: I personally reviewed and interpreted this EKG as follows: Comments: Sinus rhythm with a ventricular rate of 80 bpm with no acute ST segment changes Discharge Plan Triage Chief Complaint: Chest Pain ED Provider: Terri Doyle Dx/Rx/DC Orders Clinical Impression: Chest pain Instructions: ED Chest Pain, Uncertain Cause Prescriptions: No Action loratadine 10 mg capsule 10 mg PO DAILY RF: 0 losartan 25 MG tablet 25 mg PO QHS RF: 0 multivitamin with folic acid 1 TABLET tablet 1 tab PO DAILY RF: 0 ascorbic acid (vitamin C) 1,000 MG tablet 1,000 mg PO DAILY RF: 0 fluticasone propionate 1 SPRAY spray,suspension 1 spray NASAL DAILY PRN (Reason: Congestion) RF: 0 Primary Care Provider: Santos David Referrals: Santos David MD [Primary Care Provider] - 3-5 Days Disposition Disposition: Home, Self Care
[2021-02-02 20:20] LABS: Basophil# 0.04 X10^3/uL; Basophil% 0.6 % (0-1); Eosinophil# 0.13 X10^3/uL; Hematocrit 40.4 % (40-54); Hemoglobin 13.4 g/dL (13.0-16.5); Lymphocyte % 26.5 % (19-41); Mean Corp Hgb Conc 33.2 g/dL (32-36); Mean Corpuscular Hgb 29.8 pg (27.0-32.0); Mean Platelet Vol. 11.3 fl (6.2-12.0); Monocyte# 0.58 X10^3/uL; NRBC Flagged by Analyzer 0 % (0-5); Neutrophil # 3.95 X10^3/uL (2.7-7.7); Neutrophil % 61.6 % (47-70); Platelet Count 200 K/mm3 (150-450); RBC Distribution Width CV 12.3 % (11.6-14.6); RBC Distribution Width SD 40.6 fl (35.1-43.9); Red Blood Count 4.49 M/mm3 (4.6-6.2); White Blood Count 6.4 K/mm3 (4.4-11.0)
[2021-02-02] MEDS: 0.9% Normal Saline 1,000 ML 150 ML IV (20:29)
--- NOTE | 2021-02-02 20:30 | RAD_ITS ---
INDICATION: chest pain EXAMINATION/TECHNIQUE: X-RAY - XR Chest 1 View COMPARISON: 03/26/2019. FINDINGS: The lungs are clear. The cardiomediastinal silhouette is unremarkable. No pleural effusion or pneumothorax. No acute osseous abnormalities. RAD/Chest 1 View (Portable) IMPRESSION: No acute radiographic abnormalities. Electronically Signed: Gen Kennedy MD at 21:09 EDT Tel , Service support ,
[2021-02-02 20:33] LABS: Anion Gap 7 (5-15); BUN 12 mg/dL (7-18); BUN/Creat Ratio 11.7 RATIO (10-20); Calcium,Total 8.5 mg/dL (8.5-10.1); Chloride 106 mmol/L (98-107); Creatinine, Serum 1.03 mg/dL (0.70-1.30); EST Glomerular Filtration Rate 81 mL/min (>60); Est Glom Filt Rate - Afr Amer 98 mL/min (>60); Estimated Creatinine Clearance 87.61 ml/min; Glucose 132 mg/dL (74-106); Potassium 3.4 mmol/L (3.5-5.1); Sodium Level 140 mmol/L (136-145); Troponin-I HS 4.8 pg/mL (3.0-78.5)
[2021-02-02 20:51] LABS: D-Dimer Quantitative (DVT/PE) 0.45 FEU/ug/m (0.27-0.49)
[2021-02-02 21:00] VITALS: BP 121/89; PULSE 68; RESP 16; O2SAT 100
[2021-02-02] MEDS: Aspirin 81 MG TAB.CHEW 324 MG PO (21:26)
[2021-02-02 22:32] LABS: Troponin-I HS 5.4 pg/mL (3.0-78.5)
== END 2021-02-02 22:55 | disposition home or self-care (01) ==
PROVIDERS: Emergency Provider Emergency Medicine; PCP Family Medicine
DX: R07.9 Chest pain, unspecified (principal); Z86.16 Personal history of COVID-19
CPT/HCPCS: 71045; 80048; 84484; 85025; 85379; 93005; 96360; 96361; 99285; J7030; A4216

== ENCOUNTER → 2021-02-03 17:07 | Outpatient (CLI) | payer OTHER, SELFPAY ==
[2021-02-02 18:59] VITALS: BMI 34.4
--- NOTE | 2021-02-03 17:09 | RAD_ITS ---
STUDY: X-RAY - LEFT TIBIA AND FIBULA REASON FOR EXAM: Male, 50 years old. Foreign body TECHNIQUE: 3 view(s) of the tibia and fibula were obtained. COMPARISON: None. FINDINGS: There is no evidence of fracture or dislocation. There are no significant degenerative changes. There are no radiodense foreign bodies. RAD/Tibia & Fibula 2 Views IMPRESSION: Negative radiographs of left tibia and fibula. Electronically Signed: Yonathan Gonsalves MD at 11:34 EDT Tel , Service support ,
== END ==
PROVIDERS: PCP Family Medicine; Referring Provider Family Medicine; Visit Provider Family Medicine
DX: L98.9 Disorder of the skin and subcutaneous tissue, unspecified (principal)
CPT/HCPCS: 73590

== ENCOUNTER → 2022-01-18 | Outpatient (CLI) | payer OTHER, SELFPAY ==
[2022-01-18 09:11] LABS: Lyme Ab Screen Interpretation REF LAB
[2022-01-18 10:13] LABS: Absolute Neutrophil Count 2.8 X10^3/uL (2.0-7.7); Basophil# 0.04 X10^3/uL; Basophil% 0.8 % (0-1); Eosinophil# 0.15 X10^3/uL; Hematocrit 44.4 % (40-54); Hemoglobin 14.7 g/dL (13.0-16.5); Lymphocyte % 28.2 % (19-41); Mean Corp Hgb Conc 33.1 g/dL (32-36); Mean Corpuscular Hgb 30.6 pg (27.0-32.0); Mean Corpuscular Volume 92.5 fL (80-94); Mean Platelet Vol. 11.1 fl (6.2-12.0); Monocyte# 0.55 X10^3/uL; Monocyte% 11.1 % (0-10); NRBC Flagged by Analyzer 0 % (0-5); Neutrophil # 2.82 X10^3/uL (2.7-7.7); Neutrophil % 56.7 % (47-70); Platelet Count 177 K/mm3 (150-450); RBC Distribution Width CV 12.7 % (11.6-14.6); RBC Distribution Width SD 43.4 fl (35.1-43.9)
[2022-01-18 10:49] LABS: Syphilis Antibodies Non-reactive
[2022-01-18 11:00] LABS: ALB/GLOB Ratio 1.2 RATIO (0.9-2.4); AST(SGOT) 15 U/L (15-37); Alanine Aminotransfer ALT/SGPT 32 U/L (16-61); Albumin, Serum 3.8 g/dL (3.2-5.0); Alkaline Phosphatase 79 U/L (45-117); Anion Gap 3 (5-15); BUN 12 mg/dL (7-18); BUN/Creat Ratio 13.3 RATIO (10-20); Calcium,Total 8.9 mg/dL (8.5-10.1); Chloride 111 mmol/L (98-107); EST Glomerular Filtration Rate 94 mL/min (>60); Est Glom Filt Rate - Afr Amer 113 mL/min (>60); Globulin 3.3 g/dL (2.2-4.2); Glucose 101 mg/dL (74-106); Potassium 4.4 mmol/L (3.5-5.1); Protein, Total 7.1 g/dL (6.4-8.2); Sodium Level 142 mmol/L (136-145); Thyroid Stim Hormone (TSH) 1.74 uIU/mL (0.358-3.74)
[2022-01-19 15:54] LABS: ANTINUCLEAR ANTIBODIES DIRECT Negative (Negative)
[2022-01-19 15:56] LABS: Lyme Scn Total Ab w/Rflx Negative (Negative)
== END | disposition home or self-care (01) ==
LOC: MFPLAB 09:10
PROVIDERS: PCP Family Medicine; Visit Provider Family Medicine
DX: R20.2 Paresthesia of skin (principal)
CPT/HCPCS: 36415; 80053; 84443; 85025; 86038; 86618; 86780

== ENCOUNTER → 2022-01-26 | Outpatient (CLI) | payer OTHER, SELFPAY ==
--- NOTE | 2022-01-26 06:34 | MRI_ITS ---
STUDY: MRI BRAIN WITH AND WITHOUT CONTRAST REASON FOR EXAM: Male, 51 years old. PROGRESSIVE R SIDED PARASTHESIA AND ALTERED SENSATION TECHNIQUE: Standardized multiplanar fat and water weighted pulse sequences were obtained. IV 21ml Dotarem was administered for the contrast portion of the examination. COMPARISON: None. FINDINGS: Normal size of the ventricles and extra-axial spaces for the patient''s age. Normal white matter tracts of the supratentorial brain. There is no evidence for recent intracranial ischemia or other cause of cytotoxic edema on diffusion weighted imaging (DWI). Normal T2* images of the brain without demonstrated susceptibility artifact. There is no demonstrated hemosiderin stain. No abnormal enhancement of the brain parenchyma or meninges or dura. No visualized mass or suspicious lesions. No parenchymal edema is present. Normal bilateral basal ganglia. Normal thalami. There is no extra-axial fluid accumulation. Normal flow voids within the major intracranial circulation suggesting patency by spin echo criteria. Normal venous enhancement. There is no enhancing intra-axial or extra-axial abnormality. Normal sella turcica, pituitary gland, infundibular stalk, optic chiasm and hypothalamus. Normal tectal plate and pineal gland. Normal midbrain, bruce and medulla. Normal cerebellum. Normal basal cisterns. Normal bilateral temporal bones. Normal bilateral internal auditory canals. No demonstrated orbital abnormality, within the constraints of a routine brain study. Normal visualized paranasal sinuses. Normal calvarium and skull base. Normal visualized soft tissue structures. Normal visualized upper cervical spine. MRI/Brain W/WO Contrast IMPRESSION: 1. Normal unenhanced and enhanced MRI of the brain. 2. No abnormal enhancement of the brain parenchyma or meninges or dura. No visualized mass or suspicious lesions. No parenchymal edema is present. Electronically Signed: Reynold Solis MD at 15:21 EDT Reading Location ID and State: [facility] / [place] , Service support ,
== END | disposition home or self-care (01) ==
LOC: MRI 06:29
PROVIDERS: PCP Family Medicine; Referring Provider Family Medicine; Visit Provider Family Medicine
DX: R29.3 Abnormal posture (principal)
CPT/HCPCS: 70553; A9575

== ENCOUNTER → 2023-07-16 | Outpatient (CLI) | payer OTHER, SELFPAY ==
[2023-07-16 11:43] LABS: ALB/GLOB Ratio 0.8 RATIO (0.9-2.4); AST(SGOT) 17 U/L (15-37); Alanine Aminotransfer ALT/SGPT 36 U/L (16-61); Albumin, Serum 3.4 g/dL (3.2-5.0); Alkaline Phosphatase 93 U/L (45-117); Anion Gap 3 (5-15); BUN 9 mg/dL (7-18); BUN/Creat Ratio 9.4 RATIO (10-20); Calcium,Total 8.8 mg/dL (8.5-10.1); Chloride 109 mmol/L (98-107); Cholesterol 168 mg/dL (200); Creatinine, Serum 0.95 mg/dL (0.70-1.30); EST Glomerular Filtration Rate 88 mL/min (>60); Est Glom Filt Rate - Afr Amer 106 mL/min (>60); Globulin 4.1 g/dL (2.2-4.2); Glucose 101 mg/dL (74-106); High Density Lipoprotein 36 mg/dL; Potassium 3.9 mmol/L (3.5-5.1); Protein, Total 7.5 g/dL (6.4-8.2); Sodium Level 141 mmol/L (136-145); Triglycerides 81 mg/dL; Very Low Density Lipoprotein 16 mg/dL (5-40)
== END | disposition home or self-care (01) ==
PROVIDERS: PCP Family Medicine; Referring Provider Family Medicine; Visit Provider Family Medicine
DX: Z13.220 Encounter for screening for lipoid disorders (principal); I10 Essential (primary) hypertension
CPT/HCPCS: 36415; 80053; 80061

== ENCOUNTER → 2024-01-14 | Outpatient (CLI) | payer OTHER, SELFPAY ==
[2024-01-14 08:22] LABS: AST(SGOT) 22 U/L (15-37); Alanine Aminotransfer ALT/SGPT 43 U/L (16-61); Albumin, Serum 3.7 g/dL (3.2-5.0); Alkaline Phosphatase 83 U/L (45-117); Anion Gap 6 (5-15); BUN 10 mg/dL (7-18); BUN/Creat Ratio 9.3 RATIO (10-20); Calcium,Total 8.8 mg/dL (8.5-10.1); Chloride 108 mmol/L (98-107); Creatinine, Serum 1.08 mg/dL (0.70-1.30); EST Glomerular Filtration Rate 76 mL/min (>60); Est Glom Filt Rate - Afr Amer 92 mL/min (>60); Globulin 3.6 g/dL (2.2-4.2); Glucose 113 mg/dL (74-106); Potassium 3.8 mmol/L (3.5-5.1); Protein, Total 7.3 g/dL (6.4-8.2); Sodium Level 138 mmol/L (136-145)
== END | disposition home or self-care (01) ==
LOC: LAB 07:38
PROVIDERS: PCP Family Medicine; Referring Provider Family Medicine; Visit Provider Family Medicine
DX: I10 Essential (primary) hypertension (principal)
CPT/HCPCS: 36415; 80053

== ENCOUNTER → 2025-01-01 | Outpatient (CLI) | payer OTHER, SELFPAY ==
[2025-01-01 06:44] LABS: Absolute Lymphocyte Count 2.08 X10^3/uL (0.83-4.51); Absolute Neutrophil Count 3.2 X10^3/uL (2.0-7.7); Basophil# 0.05 X10^3/uL; Basophil% 0.8 % (0-1); Eosinophil# 0.22 X10^3/uL; Eosinophils% 3.5 % (0-5); Hematocrit 44.7 % (40-54); Hemoglobin 14.9 g/dL (13.0-16.5); Lymphocyte # 2.08 X10^3/ul (0.83-4.51); Lymphocyte % 33.3 % (19-41); Mean Corp Hgb Conc 33.3 g/dL (32-36); Mean Corpuscular Hgb 30.7 pg (27.0-32.0); Mean Corpuscular Volume 92.2 fL (80-94); Monocyte# 0.64 X10^3/uL; Monocyte% 10.2 % (0-10); NRBC Flagged by Analyzer 0 % (0-5); Neutrophil # 3.24 X10^3/uL (2.7-7.7); Neutrophil % 51.9 % (47-70); Platelet Count 191 K/mm3 (150-450); RBC Distribution Width SD 43.8 fl (35.1-43.9); Red Blood Count 4.85 M/mm3 (4.6-6.2); White Blood Count 6.3 K/mm3 (4.4-11.0)
[2025-01-01 07:09] LABS: Hemoglobin A1c 5.3 % (<=5.6)
[2025-01-01 07:24] LABS: ALB/GLOB Ratio 1.7 RATIO (0.9-2.4); AST(SGOT) 18 U/L (<=37); Alanine Aminotransfer ALT/SGPT 16 U/L (<=46); Albumin, Serum 4.2 g/dL (3.5-5.0); Alkaline Phosphatase 80 U/L (40-129); Anion Gap 10 (5-15); BUN 13 mg/dL (4-19); BUN/Creat Ratio 13.8 RATIO (10-20); Calcium,Total 8.8 mg/dL (7.6-11.0); Carbon Dioxide 24.1 mmol/L (21.0-32.0); Chloride 106 mmol/L (98-108); Cholesterol 183 mg/dL (<=200); Creatinine, Serum 0.95 mg/dL (0.70-1.20); EST Glomerular Filtration Rate 94 (>60); Globulin 2.4 g/dL (2.2-4.2); Glucose 104 mg/dL (70-99); High Density Lipoprotein 48 mg/dL; Low Density Lipoprotein Calc. 115 mg/dL; Potassium 4.1 mmol/L (3.3-5.1); Protein, Total 6.6 g/dL (5.9-8.4); Sodium Level 140 mmol/L (133-145); Total Bilirubin 0.51 mg/dL (0.00-1.30); Triglycerides 105 mg/dL; Very Low Density Lipoprotein 21 mg/dL (5-40); cholesterol:hdl ratio screen 3.85
[2025-01-01 07:27] LABS: Microalbumin,Random Urine < 12.0 mg/L (NO RANGE EST.); Microalbumin:Creatinine Ratio UNABLE TO CALCULATE mg/g CRE
[2025-01-01 09:08] LABS: International Normalized Ratio 0.9; Prothrombin Time (Protime)PT. 12.8 SECONDS (11.7-14.9)
[2025-01-02 04:07] LABS: GGTP 20 IU/L (0-65)
== END | disposition home or self-care (01) ==
LOC: LAB 06:02
PROVIDERS: PCP Family Medicine; Referring Provider Family Medicine; Visit Provider Family Medicine
DX: F10.90 Alcohol use, unspecified, uncomplicated (principal); I10 Essential (primary) hypertension; E66.812 Obesity, class 2; Z13.220 Encounter for screening for lipoid disorders
CPT/HCPCS: 80053; 80061; 82043; 82570; 82977; 83036; 84443; 85025; 85610

== ENCOUNTER → 2025-01-10 | Outpatient (CLI) | payer OTHER, SELFPAY | END | disposition home or self-care (01) | LOC: MFPLAB 09:15 | PROVIDERS: PCP Family Medicine; Visit Provider Nurse Practitioner Family | DX: Z12.5 Encounter for screening for malignant neoplasm of prostate (principal) | CPT/HCPCS: 36415; 84153; G0103 ==

== ENCOUNTER → 2025-03-13 | Outpatient (CLI) | payer OTHER, SELFPAY | END | disposition home or self-care (01) | LOC: MFPLAB 08:50 | PROVIDERS: PCP Family Medicine; Visit Provider Nurse Practitioner Family | DX: R79.89 Other specified abnormal findings of blood chemistry (principal) | CPT/HCPCS: 36415; 84439; 84443 ==

== ENCOUNTER → 2025-03-15 | Outpatient (CLI) | payer OTHER, SELFPAY ==
[2025-03-15 11:40] LABS: Free T3 3.5 pg/mL (2.18-3.98)
[2025-03-18 16:09] LABS: Thyroglobulin, Serum Qt. 9.4 ng/mL (1.4-29.2)
== END | disposition home or self-care (01) ==
LOC: MFPLAB 08:11
PROVIDERS: PCP Family Medicine; Referring Provider Family Medicine; Visit Provider Family Medicine
DX: R79.89 Other specified abnormal findings of blood chemistry (principal)
CPT/HCPCS: 36415; 84432; 84481; 86376; 86800

== ENCOUNTER → 2025-07-12 | Outpatient (CLI) | payer OTHER, SELFPAY ==
--- OUTSIDE RECORDS SUMMARY | 2025-07-12 09:09 | XMS RPT_ITS | CCD ---
Author Organization [facility] Care Team Providers Care Watch Train Inspector Name Role Phone Ivanauskas, Saulius Unavailable Unavailable Ivanauskas, Saulius Unavailable Unavailable David, Verena A Unavailable Unavailable Sleik, Khaled Unavailable Unavailable Frankie Verena A Unavailable Unavailable Sleik, Khaled Unavailable Unavailable Sleik, Khaled Unavailable Unavailable David, Verena A Unavailable Unavailable Sleik, Khaled Unavailable Unavailable VERENA DAVID MD Primary Care Physician Pcp, No Primary Care Provider UnavailVerena Almanza MD Unavailable Verena David MD Unavailable Verena David MD Primary Care Provider [phone] DOMINGUEZ PERKINS Referring Unavailable DOMINGUEZ PERKINS Attending Unavailable VERENA DAVID Primary Care Unavailable DOMINGUEZ PERKINS Attending Unavailable YONATHAN COLLINS M.D. Attending Unavailable VERENA DAVID Primary Care Unavailable Dr. Verena David MD Primary Care Provider [phone] Dr. Verena David MD Attending Provider [phone] Dr. Verena David MD Referring Provider [phone] Bart EMBROIDERER-CJalyn Attending Provider [phone] Verena David Primary Care Unavailable Verena David Attending Unavailable Verena David Referring Unavailable Verena David Primary Care Unavailable Bart EMBROIDERER, Jalyn Attending Unavailable Bart EMBROIDERER, Jalyn Attending Unavailable Reggie Davidic Primary Care Unavailable Reggie Davidic Attending Unavailable David Verena Referring Unavailable Frankie Verena Primary Care Unavailable Allergies Allergy Classification Reported Allergen(s) Allergy Type Date of Onset Reaction(s) Facility (4 sources) Iodine; Translations: [IODINE] Drug Allergy 07-15-2022 Rash [facility] Medications Current Medications Medication Drug Class(es) Dates Sig (Normalized) Sig (Original) ascorbic acid 1000 mg oral tablet (10 sources) Vitamin C Start: 03-26-2019 take 1 tablet by mouth once daily Ascorbic Acid (Vitamin C) 1,000 MG tablet Active 1000 mg PO DAILY March 26, 2019 12:00am Comment on above: Take by mouth. iv contrast (will be provided with radiology test) (1 source) Start: 07-15-2022 End: 07-16-2022 iv contrast (will be provided with radiology test) MRI knee RT Inject, intravenously, once for 1 dose. No IV access, insert saline lock prior to the beginning of sedation, infusion, injection of imaging exam. Discontinue saline lock post exam. If Pt. has a central line or IVAD, may access for administration according to line specific nursing protocol. Once exam is complete flush line and de-access according to line specific nursing protocol in the MR contrast administration guidelines link. 1 Each 0 07/15/2022 07/16/2022 Active Comment on above: MRI knee RT Inject, intravenously, once for 1 dose. No IV access, insert saline lock prior to the beginning of sedation, infusion, injection of imaging exam. Discontinue saline lock post exam. If Pt. has a central line or IVAD, may access for administration according to line specific nursing protocol. Once exam is complete flush line and de-access according to line specific nursing protocol in the MR contrast administration guidelines link. loratadine 10 mg oral capsule (10 sources) Start: 03-28-2020 take 1 capsule by mouth once daily Loratadine 10 mg capsule Active 10 mg PO DAILY March 28, 2020 12:00am allergies Comment on above: Take by mouth. losartan potassium 25 mg oral tablet (10 sources) Angiotensin 2 Receptor Kervin Start: 04-23-2017 take 1 tablet by mouth at bedtime Losartan 25 MG tablet Active 25 mg PO AT BEDTIME April 23, 2017 12:00am bp Comment on above: TAKE 1/2 (ONE-HALF) TO 1 (ONE) TABLET BY MOUTH AT BEDTIME Multivitamin With Folic Acid (3 sources) Start: 04-23-2017 take 1 tablet by mouth once daily Multivitamin With Folic Acid Active 1 TABLET PO DAILY April 22, 2017 11:00pm Start: 04-23-2017 take 1 tablet by tiffanie once daily Multivitamin With Folic Acid Active 1 TABLET PO DAILY April 23, 2017 12:00am Multivitamin With Folic Acid 1 TABLET tablet (4 sources) Start: 04-23-2017 take 1 tablet by mouth once daily Multivitamin With Folic Acid 1 TABLET tablet Active 1 {tbl} PO DAILY April 23, 2017 12:00am Completed/Discontinued Medications Medication Drug Class(es) Dates Sig (Normalized) Sig (Original) acetaminophen 325 mg / oxyCODONE hydrochloride 5 mg oral tablet (7 sources) Opioid Agonist Start: 04-07-2020 End: 04-12-2020 Oxycodone-Acetaminop hen 1 EACH tablet Discontinued 1 - 2 {tbl} PO EVERY 6 HOURS as needed for Pain Score 4-10/10 30 5 0 April 07, 2020 April 11, 2020 12:00am April 12, 2020 12:02am Cholelithiasis Calculus of gallbladder without cholecystitis without obstruction Start: 04-07-2020 End: 04-12-2020 take 1 tablet by mouth every six hours Oxycodone-Acetaminophen Discontinued 1 - 2 TABLET PO EVERY 6 HOURS 30 5 April 07, 2020 April 11, 2020 11:02pm fluticasone propionate 0.05 mg/actuat metered dose nasal spray (10 sources) Corticosteroid Start: 03-26-2019 fluticasone (F LONASE) 50 mcg/actuation nasal spray Fluticasone Propionate Active 1 SPRAY NASAL DAILY March 26, 2019 12:00am 0 03/26/2019 Active Start: 03-26-2019 Fluticasone Pr opionate 1 SPRAY spray,suspension Active 1 NMA NASAL DAILY as needed for Congestion March 26, 2019 12:00am Start: 03-26-2019 Fluticasone Pr opionate Active 1 SPRAY NASAL DAILY March 25, 2019 11:00pm Comment on above: Fluticasone Propiona te Active 1 SPRAY NASAL DAILY March 26, 2019 12:00am hydrOXYzine hydrochloride 25 mg oral tablet (1 source) Antihistamine Start: 08-26-19 23 take 1 tablet by mouth every eight hours as needed hydrOXYzine HCl (ATARAX) 25 mg tablet Take 1 tablet by mouth three times daily as needed. 20 tablet 0 08/26/2022 Active Comment on above: Take 1 tablet by tiffanie th three times daily as needed. Problems Problem Classification Problem Date Documented Date Episodic/Chronic Allergic reactions (7 sources) Environmental allergy; Translations: [Other allergy status, other than to drugs and biological substances] 04-22-2020 Episodic Anxiety disorders (1 source) Anxiety disorder, unspecified; Translations: [Anxiety] Onset: 08-26-2022 Chronic Biliary tract disease (7 sources) Biliary calculus; Translations: [Calculus of gallbladder without cholecystitis without obstruction] 04-07-2020 Episodic Disorders of lipid metabolism (7 sources) Hypercholesterolemia; Translations: [Pure hypercholesterolemia, unspecified] 04-22-2020 Chronic Disorders of teeth and jaw (7 sources) History of surgical procedure on mouth; Translations: [Other dental procedure status] 04-22-2020 Episodic Essential hypertension (7 sources) Hypertensive disorder; Translations: [Essential (primary) hypertension] 04-22-2020 Chronic Nonspecific chest pain (8 sources) Chest pain; Translations: [Chest pain, unspecified] Onset: 08-26-2022 02-02-2021 Episodic Other acquired deformities (1 source) Spondylolisthesis; Translations: [Spondylolisthesis, lumbosacral region] Episodic Other nervous system disorders (1 source) Lesion of right sciatic nerve; Translations: [Lesion of sciatic nerve, right lower limb] Chronic Other screening for suspected conditions (not mental disorders or infectious disease) (2 sources) Other specified abnormal findings of blood chemistry; Translations: [Encounter for screening for malignant neoplasm of prostate] Onset: 01-14-2025 Episodic Other skin disorders (1 source) Disorder of right lower extremity; Translations: [Localized swelling, mass and lump, right lower limb] Episodic Residual codes; unclassified (5 sources) History of operative procedure on foot; Translations: [Other specified postprocedural states] 04-22-2020 Episodic Spondylosis; intervertebral disc disorders; other back problems (3 sources) Spinal stenosis of lumbar region; Translations: [Spinal stenosis, lumbar region with neurogenic claudication] Onset: 08-20-2022 Episodic Unclassified (1 source) Alcohol use, unspecified, uncomplicated; Translations: [Alcohol use, unspecified, uncomplicated] Onset: 01-04-2025 Results Test Name Value Interpretation Reference Range Facility Thyroglobulin w/Anti-TG ABon 03-18-2025 Anti-TG AB < 1.0 Normal 0.0-0.9 [facility] Comment on above: Result Comment: Thyr oglobulin Antibody measured by [facility] Methodology It should be noted that the presence of thyroglobulin antibodies may not be pathogenic nor diagnostic, especially at very low levels. The assay rivet machine operator has found that four percent of individuals without evidence of thyroid disease or autoimmunity will have positive TgAb levels up to 4 IU/mL. Performed By: #### L 501.9520, L506.0400 #### [facility] [address] [place], [place], [address] THYROGLOB QUANT 9.4 ng/mL Normal 1.4-29.2 [facility] Comment on above: Result Comment: Acco rding to the National Academy of Clinical Biochemistry, the reference interval for Thyroglobulin (TG) should be related to euthyroid patients and not for patients who underwent thyroidectomy. TG reference intervals for these patients depend on the residual mass of the thyroid tissue left after surgery. Establishing a post-operative baseline is recommended. The assay limit of quantitation is 0.1 ng/mL Thyroglobulin measured by [facility] Immunometric Assay Performed By: #### L 501.9520, L506.0400 #### [facility] [address] [place], [place], [address] Thyroid Peroxidase ABon 03-08 THYR PEROX AB < 9 Normal 0-34 [facility] Comment on above: Result Comment: Perf ormed at: [facility] [id number] Clinical Quality Manager: Donnell Desai PhD, Phone: [phone] Performed By: #### L 501.9520, L506.0400 #### [facility] [address] [place], [place], [address] Free T3on 03-15-2025 Free T3 [Mass/Vol] 3.5 pg/mL Normal 2.18-3.98 [facility] Comment on above: Performed By: #### L 501.9520, L506.0400 #### [facility] [address] [place], [place], [address] Free Q7Syembas By: Verena herrera on 03-15-2025 Free T3 [Mass/Vol] 3.5 pg/mL 2.18-3.98 [facility] Serum or plasma thyroperoxid ase antibody assay (units/volume)Ordered By: Verena David on 03-15-2025 TPO Ab Qn [IU]/mL 0-34 [facility] Comment on above: Performed at: [address] [id number] Director: Donnell Desai PhD, Phone: [phone] T4 Free Directon 03-13-2025 T4 FREE DIRECT 1.30 ng/dL Normal 0.76-1.46 [facility] Comment on above: Order Comment: Order Date: 01/10/25 Order Info: [id number] - TSH Order Info: [id number] - T4F Performed By: #### L 501.9520, L506.0400 #### [facility] [address] [place], [place], [address] T4 freeOrdered By: Jalyn ba on 03-13-2025 Free T4 [Mass/Vol] 1.30 ng/dL 0.76-1.46 [facility] TSH DL <= 0.005 mIU/L QnOrde red By: Jalyn Arriaga on 03-13-2025 TSH Qn 5.260 uIU/mL High 0.300-4.200 [facility] Thyroid Stim Hormone (TSH)on 03-13-2025 TSH 5.260 uIU/mL High 0.300-4.200 [facility] Comment on above: Order Comment: Order Date: 01/10/25 Order Info: [id number] - TSH Order Info: [id number] - T4F Performed By: #### L 501.9520, L506.0400 #### [facility] [address] [place], [place], [address] PSA,Total - Annual Screenon 01-10-2025 PSA,TOT SCREEN 1.80 ng/mL Normal 0.02-4.00 [facility] Comment on above: Order Comment: Order Date: 01/10/25 Order Info: [id number] - TSH Order Info: [id number] - T4F Result Comment: This test was performed using the [employer] tPSA method. Measured values of a patient??sample can vary depending on the testing procedure used. PSA values determined on patient samples by different testing procedures cannot be used interchangeably. If there is a change in PSA assays while monitoring therapy, sequential testing should be performed to confirm baseline values. Performed By: #### L 501.9520, L506.0400 #### [facility] [address] [place], [place], [address] L501.5101on 01-02-2025 GGTP 20 IU/L Normal 0-65 [facility] Comment on above: Order Comment: Order Date: 12/26/24 Order Info: [id number] - GGTP Result Comment: Perf ormed at: [facility] [id number] Clinical Quality Manager: Donnell Desai PhD, Phone: [phone] Performed By: #### L 500.4100, L501.9520, L501.9985, L100.0100, L300.3900, L501.5101, L500.4050 #### [facility] [address] [place], [place], [id number] Absolute lymphocyte countOrd ered By: Verena David on 01-01-2025 Lymphocytes Auto (Unsp spec) [#/Vol] 2.08 10*3/uL 0.83-4.51 [facility] Absolute neutrophil countOrd ered By: Verena David on 01-01-2025 Neutrophils (Bld) [#/Vol] 3.2 10*3/uL 2.0-7.7 [facility] Anion gap in Serum or Plasma Ordered By: Verena David on 01-01-2025 Anion gap [Moles/Vol] 10 mmol/L 5-15 [facility] Automated lymphocyte count a s percentage of total leukocytesOrdered By: Verena David on 01-01-2025 Lymphocytes/100 WBC Auto (Unsp spec) 33.3 % 19-41 [facility] BUN/creatinine ratioOrdered By: Verena David on 01-01-2025 Urea nitrogen/Creatinine [Mass ratio] 13.8 mg/mg 10-20 [facility] Basophil percentageOrdered B y: Verena David on 01-01-2025 Basophils/100 WBC (Bld) 0.8 % 0-1 [facility] Bilirubin, totalOrdered By: Verena David on 01-01-2025 Bilirubin [Mass/Vol] 0.51 mg/dL 0.00-1.30 [facility] CBC W/Diff, Automatedon 12-07 Absolute Lymph 2.08 X10 3/uL Normal 0.83-4.51 [facility] Comment on above: Order Comment: Order Date: 12/26/24 Order Info: [id number] - CBCD Performed By: #### L 500.4100, L501.9520, L501.9985, L100.0100, L300.3900, L501.5101, L500.4050 #### [facility] [address] [place], [place], [id number] [phone] Absolute Neut 3.2 X10 3/uL Normal 2.0-7.7 [facility] Comment on above: Order Comment: Order Date: 12/26/24 Order Info: [id number] - CBCD Performed By: #### L 500.4100, L501.9520, L501.9985, L100.0100, L300.3900, L501.5101, L500.4050 #### [facility] [address] [place], [address] Basophils/100 WBC (Bld) 0.8 % Normal 0-1 [facility] Comment on above: Order Comment: Order Date: 12/26/24 Order Info: [id number] - CBCD Performed By: #### L 500.4100, L501.9520, L501.9985, L100.0100, L300.3900, L501.5101, L500.4050 #### [facility] [address] [place], [address] Eosinophils/100 WBC (Bld) 3.5 % Normal 0-5 [facility] Comment on above: Order Comment: Order Date: 12/26/24 Order Info: [id number] - CBCD Performed By: #### L 500.4100, L501.9520, L501.9985, L100.0100, L300.3900, L501.5101, L500.4050 #### [facility] [address] [place], [place], [id number] Erythrocyte distribution width (RBC) [Ratio] 13.0 % Normal 11.6-14.6 [facility] Comment on above: Order Comment: Order Date: 12/26/24 Order Info: [id number]- - CBCD Performed By: #### L 500.4100, L501.9520, L501.9985, L100.0100, L300.3900, L501.5101, L500.4050 #### [facility] [address] [place], [place], [id number] Hematocrit (Bld) [Volume fraction] 44.7 % Normal 40-54 [facility] Comment on above: Order Comment: Order Date: 12/26/24 Order Info: [id number] - CBCD Performed By: #### L 500.4100, L501.9520, L501.9985, L100.0100, L300.3900, L501.5101, L500.4050 #### [facility] [address] [place], [place], [id number] Hemoglobin (Bld) [Mass/Vol] 14.9 g/dL Normal 13.0-16.5 [facility] Comment on above: Order Comment: Order Date: 12/26/24 Order Info: [id number] - CBCD Performed By: #### L 500.4100, L501.9520, L501.9985, L100.0100, L300.3900, L501.5101, L500.4050 #### [facility] [address] [place], [address] IG% 0.300 Normal 0.0-0.9 [facility] Comment on above: Order Comment: Order Date: 12/26/24 Order Info: [id number] - CBCD Result Comment: IG% - Immature Granulocytes (promyelocytes, myelocytes and metamyelocytes) > 1% indicates that a LEFT SHIFT is Present. Performed By: #### L 500.4100, L501.9520, L501.9985, L100.0100, L300.3900, L501.5101, L500.4050 #### [facility] [address] [place], [address] Lymphocytes/100 WBC (Bld) 33.3 % Normal 19-41 [facility] Comment on above: Order Comment: Order Date: 12/26/24 Order Info: [id number] - CBCD Performed By: #### L 500.4100, L501.9520, L501.9985, L100.0100, L300.3900, L501.5101, L500.4050 #### [facility] [address] [place], [address] MCH (RBC) [Entitic mass] 30.7 pg Normal 27.0-32.0 [facility] Comment on above: Order Comment: Order Date: 12/26/24 Order Info: [id number] - CBCD Performed By: #### L 500.4100, L501.9520, L501.9985, L100.0100, L300.3900, L501.5101, L500.4050 #### [facility] [address] [place], [address] MCHC (RBC) [Mass/Vol] 33.3 g/dL Normal 32-36 [facility] Comment on above: Order Comment: Order Date: 12/26/24 Order Info: [id number] - CBCD Performed By: #### L 500.4100, L501.9520, L501.9985, L100.0100, L300.3900, L501.5101, L500.4050 #### [facility] [address] [place], [address] MCV (RBC) [Entitic vol] 92.2 fL Normal 80-94 [facility] Comment on above: Order Comment: Order Date: 12/26/24 Order Info: [id number] - CBCD Performed By: #### L 500.4100, L501.9520, L501.9985, L100.0100, L300.3900, L501.5101, L500.4050 #### [facility] [address] [place], [address] Monocytes/100 WBC (Bld) 10.2 % High 0-10 [facility] Comment on above: Order Comment: Order Date: 12/26/24 Order Info: [id number] - CBCD Performed By: #### L 500.4100, L501.9520, L501.9985, L100.0100, L300.3900, L501.5101, L500.4050 #### [facility] [address] [place], [address] Neutrophils/100 WBC (Bld) 51.9 % Normal 47-70 [facility] Comment on above: Order Comment: Order Date: 12/26/24 Order Info: [id number]- - CBCD Performed By: #### L 500.4100, L501.9520, L501.9985, L100.0100, L300.3900, L501.5101, L500.4050 #### [facility] [address] [place], [address] Nucleated RBC (Bld) [#/Vol] 0 10*3/uL Normal 0-5 [facility] Comment on above: Order Comment: Order Date: 12/26/24 Order Info: [id number] - CBCD Performed By: #### L 500.4100, L501.9520, L501.9985, L100.0100, L300.3900, L501.5101, L500.4050 #### [facility] [address] [place], [address] Platelet mean volume (Bld) [Entitic vol] 11.0 fL Normal 6.2-12.0 [facility] Comment on above: Order Comment: Order Date: 12/26/24 Order Info: [id number] - CBCD Performed By: #### L 500.4100, L501.9520, L501.9985, L100.0100, L300.3900, L501.5101, L500.4050 #### [facility] [address] [place], [address] Platelets (Bld) [#/Vol] 191 10*3/uL Normal 150-450 [facility] Comment on above: Order Comment: Order Date: 12/26/24 Order Info: [id number]- - CBCD Performed By: #### L 500.4100, L501.9520, L501.9985, L100.0100, L300.3900, L501.5101, L500.4050 #### [facility] [address] [place], [address] RBC (Bld) [#/Vol] 4.85 10*6/uL Normal 4.6-6.2 [facility] Comment on above: Order Comment: Order Date: 12/26/24 Order Info: [id number] - CBCD Performed By: #### L 500.4100, L501.9520, L501.9985, L100.0100, L300.3900, L501.5101, L500.4050 #### [facility] [address] [place], [address] RDW SD 43.8 fl Normal 35.1-43.9 [facility] Comment on above: Order Comment: Order Date: 12/26/24 Order Info: [id number] - CBCD Performed By: #### L 500.4100, L501.9520, L501.9985, L100.0100, L300.3900, L501.5101, L500.4050 #### [facility] [address] [place], [address] WBC (Bld) [#/Vol] 6.3 10*3/uL Normal 4.4-11.0 [facility] Comment on above: Order Comment: Order Date: 12/26/24 Order Info: [id number] - CBCD Performed By: #### L 500.4100, L501.9520, L501.9985, L100.0100, L300.3900, L501.5101, L500.4050 #### [facility] [address] [place], [place], [id number] Calculated very low density lipoprotein (VLDL) cholesterol measurementOrdered By: Verena David on 01-01-2025 Calculated very low density lipoprotein (VLDL) cholesterol measurement 21 mg/dL 5-40 [facility] Carbon dioxide, total [Moles /volume] in Central venous bloodOrdered By: Verena David on 01-01-2025 CO2 [Moles/Vol] 24.1 mmol/L 21.0-32.0 [facility] Chloride assayOrdered By: Reggie David on 01-01-2025 Chloride [Moles/Vol] 106 mmol/L 98-108 [facility] Comprehensive Metabolic Prof ilon 01-01-2025 Albumin [Mass/Vol] 4.2 g/dL Normal 3.5-5.0 [facility] Comment on above: Order Comment: Order Date: 12/26/24 Order Info: [id number] - CMP Order Info: [id number] - LIPID Order Info: [id number] - TSH Performed By: #### L 500.4100, L501.9520, L501.9985, L100.0100, L300.3900, L501.5101, L500.4050 #### [facility] [address] [place], [place], [id number] Albumin/Globulin [Mass ratio] 1.7 {ratio} Normal 0.9-2.4 [facility] Comment on above: Order Comment: Order Date: 12/26/24 Order Info: [id number] - CMP Order Info: - LIPID Order Info: [id number] - TSH Performed By: #### L 500.4100, L501.9520, L501.9985, L100.0100, L300.3900, L501.5101, L500.4050 #### [facility] [address] [place], [address] ALK PHOS 80 U/L Normal 40-129 [facility] Comment on above: Order Comment: Order Date: 12/26/24 Order Info: [id number] - CMP Order Info: - LIPID Order Info: [id number] - TSH Performed By: #### L 500.4100, L501.9520, L501.9985, L100.0100, L300.3900, L501.5101, L500.4050 #### [facility] [address] [place], [address] ALT [Catalytic activity/Vol] 16 U/L Normal <=46 [facility] Comment on above: Order Comment: Order Date: 12/26/24 Order Info: [id number] - CMP Order Info: - LIPID Order Info: [id number] - TSH Performed By: #### L 500.4100, L501.9520, L501.9985, L100.0100, L300.3900, L501.5101, L500.4050 #### [facility] [address] [place], [address] AST [Catalytic activity/Vol] 18 U/L Normal <=37 [facility] Comment on above: Order Comment: Order Date: 12/26/24 Order Info: [id number] - CMP Order Info: [id number] - LIPID Order Info: [id number] - TSH Performed By: #### L 500.4100, L501.9520, L501.9985, L100.0100, L300.3900, L501.5101, L500.4050 #### [facility] [address] [place], [address] Bilirubin [Mass/Vol] 0.51 mg/dL Normal 0.00-1.30 [facility] Comment on above: Order Comment: Order Date: 12/26/24 Order Info: [id number] - CMP Order Info: [id number] - LIPID Order Info: [id number] - TSH Performed By: #### L 500.4100, L501.9520, L501.9985, L100.0100, L300.3900, L501.5101, L500.4050 #### [facility] [address] [place], [address] BUN/CRE 13.8 RATIO Normal 10-20 [facility] Comment on above: Order Comment: Order Date: 12/26/24 Order Info: [id number] - CMP Order Info: [id number] - LIPID Order Info: 3 - TSH Performed By: #### L 500.4100, L501.9520, L501.9985, L100.0100, L300.3900, L501.5101, L500.4050 #### [facility] [address] [place], [address] Calcium [Mass/Vol] 8.8 mg/dL Normal 7.6-11.0 [facility] Comment on above: Order Comment: Order Date: 12/26/24 Order Info: [id number] - CMP Order Info: [id number] - LIPID Order Info: [id number] - TSH Performed By: #### L 500.4100, L501.9520, L501.9985, L100.0100, L300.3900, L501.5101, L500.4050 #### [facility] [address] [place], [address] Chloride [Moles/Vol] 106 mmol/L Normal 98-108 [facility] Comment on above: Order Comment: Order Date: 12/26/24 Order Info: [id number] - CMP Order Info: - LIPID Order Info: [id number] - TSH Performed By: #### L 500.4100, L501.9520, L501.9985, L100.0100, L300.3900, L501.5101, L500.4050 #### [facility] [address] [place], [address] CO2 [Moles/Vol] 24.1 mmol/L Normal 21.0-32.0 [facility] Comment on above: Order Comment: Order Date: 12/26/24 Order Info: [id number] - CMP Order Info: - LIPID Order Info: [id number] - TSH Performed By: #### L 500.4100, L501.9520, L501.9985, L100.0100, L300.3900, L501.5101, L500.4050 #### [facility] [address] [place], [address] Creatinine [Mass/Vol] 0.95 mg/dL Normal 0.70-1.20 [facility] Comment on above: Order Comment: Order Date: 12/26/24 Order Info: [id number] - CMP Order Info: [id number] - LIPID Order Info: [id number] - TSH Performed By: #### L 500.4100, L501.9520, L501.9985, L100.0100, L300.3900, L501.5101, L500.4050 #### [facility] [address] [place], [address] GAP 10 Normal 5-15 [facility] Comment on above: Order Comment: Order Date: 12/26/24 Order Info: 07 - CMP Order Info: [id number] - LIPID Order Info: [id number] - TSH Performed By: #### L 500.4100, L501.9520, L501.9985, L100.0100, L300.3900, L501.5101, L500.4050 #### [facility] [address] [place], [address] GFR/1.73 sq M.predicted among non-blacks MDRD (S/P/Bld) [Vol rate/Area] 94 mL/min/{1.73_m2} Normal >60 [facility] Comment on above: Order Comment: Order Date: 12/26/24 Order Info: 07- - CMP Order Info: [id number] - LIPID Order Info: 3 - TSH Result Comment: mL/m in/1.73m2 CKD-EPI Creatinine Equation (2020) Performed By: #### L 500.4100, L501.9520, L501.9985, L100.0100, L300.3900, L501.5101, L500.4050 #### [facility] [address] [place], [place], [id number] [phone] Globulin (S) [Mass/Vol] 2.4 g/dL Normal 2.2-4.2 [facility] Comment on above: Order Comment: Order Date: 12/26/24 Order Info: [id number] - CMP Order Info: [id number] - LIPID Order Info: [id number] - TSH Performed By: #### L 500.4100, L501.9520, L501.9985, L100.0100, L300.3900, L501.5101, L500.4050 #### [facility] [address] [place], [address] Glucose [Mass/Vol] 104 mg/dL High 70-99 [facility] Comment on above: Order Comment: Order Date: 12/26/24 Order Info: 07 - CMP Order Info: [id number] - LIPID Order Info: [id number] - TSH Performed By: #### L 500.4100, L501.9520, L501.9985, L100.0100, L300.3900, L501.5101, L500.4050 #### [facility] [address] [place], [address] Potassium [Moles/Vol] 4.1 mmol/L Normal 3.3-5.1 [facility] Comment on above: Order Comment: Order Date: 12/26/24 Order Info: [id number] - CMP Order Info: [id number] - LIPID Order Info: 6-3 - TSH Performed By: #### L 500.4100, L501.9520, L501.9985, L100.0100, L300.3900, L501.5101, L500.4050 #### [facility] [address] [place], [address] Sodium [Moles/Vol] 140 mmol/L Normal 133-145 [facility] Comment on above: Order Comment: Order Date: 12/26/24 Order Info: [id number] - CMP Order Info: [id number] - LIPID Order Info: [id number] - TSH Performed By: #### L 500.4100, L501.9520, L501.9985, L100.0100, L300.3900, L501.5101, L500.4050 #### [facility] [address] [place], [address] T PROT 6.6 g/dL Normal 5.9-8.4 [facility] Comment on above: Order Comment: Order Date: 12/26/24 Order Info: 0786 - CMP Order Info: [id number] - LIPID Order Info: [id number] - TSH Performed By: #### L 500.4100, L501.9520, L501.9985, L100.0100, L300.3900, L501.5101, L500.4050 #### [facility] [address] [place], [address] Urea nitrogen [Mass/Vol] 13 mg/dL Normal 4-19 [facility] Comment on above: Order Comment: Order Date: 12/26/24 Order Info: 07- - CMP Order Info: [id number] - LIPID Order Info: [id number] - TSH Performed By: #### L 500.4100, L501.9520, L501.9985, L100.0100, L300.3900, L501.5101, L500.4050 #### [facility] [address] [place], [address] Eosinophil percentageOrdered By: Verena David on 01-01-2025 Eosinophils/100 WBC (Bld) 3.5 % 0-5 [facility] Erythrocyte distribution wid th ratioOrdered By: Verena David on 01-01-2025 Erythrocyte distribution width (RBC) [Ratio] 13.0 % 11.6-14.6 [facility] Erythrocyte distribution wid th standard deviationOrdered By: Verena David on 01-01-2025 Erythrocyte distribution width (RBC) [Ratio] 43.8 fl 35.1-43.9 [facility] Gamma glutamyl transferase ( GGT) measurementOrdered By: Verena David on 01-01-2025 Amylase [Catalytic activity/Vol] 20 U/L 0-65 [facility] Comment on above: Performed at: [facility] [place] [id number] Director: Donnell Desai PhD, Phone: [phone] Glomerular filtration rate ( GFR) estimation/1.73 sq m using serum, plasma, or whole bOrdered By: Verena David on 01-01-2025 GFR/1.73 sq M.predicted among non-blacks MDRD (S/P/Bld) [Vol rate/Area] 94 mL/min/{1.73_m2} >60 [facility] Comment on above: mL/min/1.73m2 CKD-EP I Creatinine Equation (2020) Hematocrit Auto (Bld) [Volum e fraction]Ordered By: Verena David on 01-01-2025 Hematocrit (Bld) [Volume fraction] 44.7 % 40-54 [facility] Hemoglobin A1con 01-01-2025 HbA1c (Bld) [Mass fraction] 5.3 % Normal <=5.6 [facility] Comment on above: Order Comment: Order Date: 12/26/24 Order Info: [id number] - A1C Result Comment: Norm al < 5.7 % Prediabetic 5.7 - 6.4 % Diabetic >or= 6.5 % Please note range changes. Performed By: #### L 500.4100, L501.9520, L501.9985, L100.0100, L300.3900, L501.5101, L500.4050 #### [facility] [address] [place], [place], [id number] Hemoglobin A1c percentageOrd ered By: Verena David on 01-01-2025 HbA1c (Bld) [Mass fraction] 5.3 % <5.7 [facility] Comment on above: Normal < 5.7 % Predi abetic 5.7 - 6.4 % Diabetic >or= 6.5 % Please note range changes. Hemoglobin measurementOrdere d By: Verena David on 01-01-2025 Hemoglobin (Bld) [Mass/Vol] 14.9 g/dL 13.0-16.5 [facility] Immature granulocytes/100 WB C Auto (Bld)Ordered By: Verena David on 01-01-2025 Immature granulocytes/100 WBC (Bld) 0.300 % 0.0-0.9 [facility] Comment on above: IG% - Immature Granu locytes (promyelocytes, myelocytes and metamyelocytes) > 1% indicates that a LEFT SHIFT is Present. International normalized rat io (INR) calculationOrdered By: Verena David on 01-01-2025 INR Coag (Bld) [Relative time] 0.9 {INR} [facility] LDL calc ser/plasOrdered By: Verena David on 01-01-2025 Cholesterol in LDL [Mass/Vol] 115 mg/dL [facility] Comment on above: Zkfhxqvfso=665-050 m g/dL & Higher Emat=078 mg/dL or greater Laboratory - Chemistry and C hemistry - challengeOrdered By: Verena David on 01-01-2025 AST [Catalytic activity/Vol] 18 U/L <38 [facility] Lipid Profileon 01-01-2025 CHOL:HDL 3.85 Normal [facility] Comment on above: Order Comment: Order Date: 12/26/24 Order Info: [id number] - CMP Order Info: [id number] - LIPID Order Info: [id number] - TSH Performed By: #### L 500.4100, L501.9520, L501.9985, L100.0100, L300.3900, L501.5101, L500.4050 #### [facility] [address] [place], [address] Cholesterol [Mass/Vol] 183 mg/dL Normal <=200 [facility] Comment on above: Order Comment: Order Date: 12/26/24 Order Info: [id number] - CMP Order Info: [id number] - LIPID Order Info: [id number] - TSH Result Comment: Chol esterol level, Desirable <200 mg/dL Borderline high cholesterol 200-239 mg/dL High cholesterol >=240 mg/dL Recommendations of the NCEP Adult Treatment Panel for the following risk-cutoff thresholds for the [place] population. Performed By: #### L 500.4100, L501.9520, L501.9985, L100.0100, L300.3900, L501.5101, L500.4050 #### [facility] [address] [place], [address] Cholesterol in HDL [Mass/Vol] 48 mg/dL Normal [facility] Comment on above: Order Comment: Order Date: 12/26/24 Order Info: [id number] - CMP Order Info: [id number] - LIPID Order Info: [id number] - TSH Result Comment: Susannah onal Cholesterol Education Program (NCEP) guidelines: <40 mg/dL: Low HDL-cholesterol (major risk factor for CHD) >= 60 mg/dL: High HDL-cholesterol (negative risk factor for CHD) HDL-cholesterol is affected by a number of factors, e.g. smoking, exercise, hormones, sex and age. Performed By: #### L 500.4100, L501.9520, L501.9985, L100.0100, L300.3900, L501.5101, L500.4050 #### [facility] [address] [place], [address] Cholesterol in LDL [Mass/Vol] 115 mg/dL Normal [facility] Comment on above: Order Comment: Order Date: 12/26/24 Order Info: [id number]- - CMP Order Info: - LIPID Order Info: [id number] - TSH Result Comment: Bord mxvpyt=685-566 mg/dL Higher Vjgz=718 mg/dL or greater Performed By: #### L 500.4100, L501.9520, L501.9985, L100.0100, L300.3900, L501.5101, L500.4050 #### [facility] [address] [place], [address] Cholesterol in VLDL [Mass/Vol] 21 mg/dL Normal 5-40 [facility] Comment on above: Order Comment: Order Date: 12/26/24 Order Info: [id number]- - CMP Order Info: - LIPID Order Info: [id number] - TSH Performed By: #### L 500.4100, L501.9520, L501.9985, L100.0100, L300.3900, L501.5101, L500.4050 #### [facility] [address] [place], [address] Triglyceride [Mass/Vol] 105 mg/dL Normal [facility] Comment on above: Order Comment: Order Date: 12/26/24 Order Info: [id number]- - CMP Order Info: [id number] - LIPID Order Info: 3 - TSH Result Comment: The drugs N-Acetylcysteine and Metamizole may falsely depress this assay. Normal range: <150 mg/dL Borderline High: 150-199 mg/dL High: 200-499 mg/dL Very High: >500 mg/dL Performed By: #### L 500.4100, L501.9520, L501.9985, L100.0100, L300.3900, L501.5101, L500.4050 #### [facility] [address] [place], [address] MCV (mean corpuscular volume ) determinationOrdered By: Verena David on 01-01-2025 MCV (RBC) [Entitic vol] 92.2 fL 80-94 [facility] Mean corpuscular hemoglobin (MCH) determinationOrdered By: Verena David on 01-01-2025 MCH (RBC) [Entitic mass] 30.7 pg 27.0-32.0 [facility] Mean corpuscular hemoglobin concentration (MCHC) determinationOrdered By: Verena David on 01-01-2025 MCHC (RBC) [Mass/Vol] 33.3 g/dL 32-36 [facility] Mean platelet volume determi nationOrdered By: Verena David on 01-01-2025 Platelet mean volume (Bld) [Entitic vol] 11.0 fL 6.2-12.0 [facility] Microalb:Creat Ratio,Random URon 01-01-2025 MALB:CREAT UNABLE TO CALCULATE Normal [facility] Comment on above: Performed By: #### L 502.0250 #### [facility] [address] [place], [address] MICROALBUMIN,UR < 12.0 Normal NO RANGE EST. [facility] Comment on above: Performed By: #### L 502.0250 #### [facility] [address] [facility] [place], [address] Microalbumin/creat ratio urO rdered By: Verena David on 01-01-2025 Urine microalbumin/creatinine ratio measurement UNABLE TO CALCULATE mg/g CRE [facility] Monocyte percentageOrdered B y: Verena David on 01-01-2025 Monocytes/100 WBC (Bld) 10.2 % High 0-10 [facility] Neutrophil percentageOrdered By: Verena David on 01-01-2025 Neutrophils/100 WBC (Bld) 51.9 % 47-70 [facility] Nucleated red blood cell per centageOrdered By: Verena David on 01-01-2025 Nucleated RBC/100 WBC (Bld) [Ratio] 0 % 0-5 [facility] Platelet countOrdered By: Reggie David on 01-01-2025 Platelets (Bld) [#/Vol] 191 10*3/uL 150-450 [facility] Potassium measurement (mass/ volume)Ordered By: Verena David on 01-01-2025 Potassium (Unsp spec) [Mass/Vol] 4.1 mmol/L 3.3-5.1 [facility] Prothrombin Time w/INRon INR Coag (PPP) [Relative time] 0.9 {INR} Normal [facility] Comment on above: Order Comment: Order Date: 12/26/24 Order Info: [id number] - PT Performed By: #### L 500.4100, L501.9520, L501.9985, L100.0100, L300.3900, L501.5101, L500.4050 #### [facility] [address] [place], [place], [id number] PT Coag (PPP) [Time] 12.8 s Normal 11.7-14.9 [facility] Comment on above: Order Comment: Order Date: 12/26/24 Order Info: [id number] - PT Performed By: #### L 500.4100, L501.9520, L501.9985, L100.0100, L300.3900, L501.5101, L500.4050 #### [facility] [address] [place], [place], [id number] Prothrombin timeOrdered By: Verena David on 01-01-2025 PT Coag (PPP) [Time] 12.8 s 11.7-14.9 [facility] RBC Auto (Bld) [#/Vol]Ordere d By: Verena David on 01-01-2025 RBC (Bld) [#/Vol] 4.85 10*6/uL 4.6-6.2 [facility] Random urine creatinine ekaterina urement (mass/volume)Ordered By: Verena David on 01-01-2025 Creatinine Unsp time (U) [Mass/Vol] 208.00 mg/dL 39.00-259.00 [facility] Screening total cholesterol/ high density lipoprotein (HDL) cholesterol ratioOrdered By: Verena David on 01-01-2025 Cholesterol.total/Choles terol in HDL [Mass ratio] 3.85 {ratio} [facility] Serum creatinine measurement (mass/volume)Ordered By: Verena David on 01-01-2025 Creatinine [Mass/Vol] 0.95 mg/dL 0.70-1.20 [facility] Serum globulin measurementOr dered By: Verena David on 01-01-2025 Globulin (S) [Mass/Vol] 2.4 g/dL 2.2-4.2 [facility] Serum glucose measurement (m ass/volume)Ordered By: Verena David on 01-01-2025 Glucose [Mass/Vol] 104 mg/dL High 70-99 [facility] Serum or plasma alanine arce otransferase (ALT) measurementOrdered By: Verena David on 01-01-2025 ALT [Catalytic activity/Vol] 16 U/L <47 [facility] Serum or plasma albumin ekaterina urement (mass/volume)Ordered By: Verena David on 01-01-2025 Albumin [Mass/Vol] 4.2 g/dL 3.5-5.0 [facility] Serum or plasma albumin/glob ulin mass ratioOrdered By: Verena David on 01-01-2025 Albumin/Globulin [Mass ratio] 1.7 {ratio} 0.9-2.4 [facility] Serum or plasma alkaline simone sphatase measurementOrdered By: Verena David on 01-01-2025 ALP [Catalytic activity/Vol] 80 U/L 40-129 [facility] Serum or plasma calcium ekaterina urement (mass/volume)Ordered By: Verena David on 01-01-2025 Calcium [Mass/Vol] 8.8 mg/dL 7.6-11.0 [facility] Serum or plasma cholesterol in HDL measurement (mass/volume)Ordered By: Verena David on 01-01-2025 Cholesterol in HDL [Mass/Vol] 48 mg/dL >40 [facility] Comment on above: National Cholesterol Education Program (NCEP) guidelines:<40 mg/dL: Low HDL-cholesterol (major risk factor for CHD)>= 60 mg/dL: High HDL-cholesterol (negative risk factor for CHD)HDL-cholesterol is affected by a number of factors, e.g. smoking, exercise, hormones, sex and age. Serum or plasma cholesterol measurement (mass/volume)Ordered By: Verena David on 01-01-2025 Cholesterol [Mass/Vol] 183 mg/dL <201 [facility] Comment on above: Cholesterol level, D esirable <200 mg/dLBorderline high cholesterol 200-239 mg/dLHigh cholesterol >=240 mg/dLRecommendations of the NCEP Adult Treatment Panel for the following risk-cutoff thresholds for the [place] population. Serum or plasma urea nitroge n measurement (mass/volume)Ordered By: Verena David on 01-01-2025 Urea nitrogen [Mass/Vol] 13 mg/dL 4-19 [facility] Sodium levelOrdered By: Verena David on 01-01-2025 Sodium [Moles/Vol] 140 mmol/L 133-145 [facility] TSH DL <= 0.005 mIU/L QnOrde red By: Verena David on 01-01-2025 TSH Qn 4.700 uIU/mL High 0.300-4.200 [facility] Thyroid Stim Hormone (TSH)on 01-01-2025 TSH 4.700 uIU/mL High 0.300-4.200 [facility] Comment on above: Order Comment: Order Date: 12/26/24 Order Info: [id number] - CMP Order Info: [id number] - LIPID Order Info: [id number] - TSH Performed By: #### L 500.4100, L501.9520, L501.9985, L100.0100, L300.3900, L501.5101, L500.4050 #### [facility] [address] [place], [address] Total proteinOrdered By: Charisma David on 01-01-2025 Protein [Mass/Vol] 6.6 g/dL 5.9-8.4 [facility] Triglycerides measurementOrd ered By: Verena David on 01-01-2025 Triglyceride [Mass/Vol] 105 mg/dL <199 [facility] Comment on above: The drugs N-Acetylcy steine and Metamizole may falsely depress this assay. Normal range: <150 mg/dLBorderline High: 150-199 mg/dLHigh: 200-499 mg/dLVery High: >500 mg/dL Urine albumin measurement [facility] detection limit of 20 mg/L or less (mass/volume)Ordered By: Verena David on 01-01-2025 Albumin DL <= 20 mg/L (U) [Mass/Vol] < 12.0 mg/L NO RANGE EST. [facility] White blood cell (WBC) count Ordered By: Verena David on 01-01-2025 WBC (Bld) [#/Vol] 6.3 10*3/uL 4.4-11.0 [facility] Basophil percentageOrdered B y: Verena David on 07-16-2023 Bilirubin [Mass/Vol] 0.50 mg/dL 0.20-1.00 [facility] Comment on above: For patients on eltr ombopag therapy, use of Dimension [place] TBIL is not recommended. Chloride [Moles/Vol] 109 mmol/L 98-107 [facility] Cholesterol [Mass/Vol] 168 mg/dL <200 [facility] Comment on above: <200 mg/dL Desirable 200-240 mg/dL Borderline >240 mg/dL High Risk Glucose [Mass/Vol] 101 mg/dL 74-106 [facility] Comment on above: Fasting Glucose resu lt from 100 to 125 mg/dL suggests IMPAIRED HOMEOSTASIS per A.D.A. criteria. Potassium [Moles/Vol] 3.9 mmol/L 3.5-5.1 [facility] Protein [Mass/Vol] 7.5 g/dL 6.4-8.2 [facility] Sodium [Moles/Vol] 141 mmol/L 136-145 [facility] Triglyceride [Mass/Vol] 81 mg/dL <199 [facility] Comment on above: The drugs N-Acetylcy steine and Metamizole may falsely depress this assay.Serum Triglycerides Reference Interval Normal <150 mg/dL Borderline high 150 - 199 mg/dL High 200 - 499 mg/dL Very High > or = 500 mg/dL Laboratory - Chemistry and C hemistry - challengeOrdered By: Verena David on 07-16-2023 ALP [Catalytic activity/Vol] 93 U/L 45-117 [facility] ALT [Catalytic activity/Vol] 36 U/L 16-61 [facility] CO2 [Moles/Vol] 29.0 mmol/L 21.0-32.0 [facility] Globulin (S) [Mass/Vol] 4.1 g/dL 2.2-4.2 [facility] Urea nitrogen/Creatinine [Mass ratio] 9.4 mg/mg 10-20 [facility] No Panel InformationOrdered By: Verena David on 07-16-2023 Estimated GFR (MDRD) Amer 106 mL/min >60 [facility] Comment on above: GFR Calc Estimated GFR (MDRD) Non-Af Amer 88 mL/min >60 [facility] Comment on above: Non- GFR Calc Serum or plasma albumin ekaterina urement (mass/volume)Ordered By: Verena David on 07-16-2023 Albumin [Mass/Vol] 3.4 g/dL 3.2-5.0 [facility] Serum or plasma albumin/glob ulin mass ratioOrdered By: Verena David on 07-16-2023 Albumin/Globulin [Mass ratio] 0.8 {ratio} 0.9-2.4 [facility] Serum or plasma calcium ekaterina urement (mass/volume)Ordered By: Verena David on 07-16-2023 Calcium [Mass/Vol] 8.8 mg/dL 8.5-10.1 [facility] Serum or plasma cholesterol in HDL measurement (mass/volume)Ordered By: Verena David on 07-16-2023 Cholesterol in HDL [Mass/Vol] 36 mg/dL >40 [facility] Comment on above: The drugs N-Acetylcy steine and Metamizole may falsely depress this assay. Reference Range HDL <40 mg/dL Low HDL Cholesterol HDL >or= 60 mg/dL High HDL Cholesterol Serum or plasma cholesterol in VLDL measurement (mass/volume)Ordered By: Verena David on 07-16-2023 Cholesterol in VLDL [Mass/Vol] 16 mg/dL 5-40 [facility] Serum or plasma creatinine m easurement (mass/volume)Ordered By: Verena David on 07-16-2023 Creatinine [Mass/Vol] 0.95 mg/dL 0.70-1.30 [facility] Comment on above: The validity of the calculated GFR & GFRAA in patients over 70 years has not been determined. Clinical correlation is essential. Serum or plasma low density lipoprotein (LDL) cholesterol measurement (mass/volume)Ordered By: Verena David on 07-16-2023 Cholesterol in LDL [Mass/Vol] 116 mg/dL 0-130 [facility] Serum or plasma urea nitroge n measurement (mass/volume)Ordered By: Verena David on 07-16-2023 Urea nitrogen [Mass/Vol] 9 mg/dL 7-18 [facility] Thin prep Papanicolaou smear with manual screeningOrdered By: Verena David on 07-16-2023 Thin prep Papanicolaou smear with manual screening 17 U/L 15-37 [facility] Thin prep Papanicolaou smear with manual screening 3 5-15 [facility] Basic metabolic 2000 panelon 08-26-2022 Anion gap [Moles/Vol] 11 mmol/L Normal 9-18 [facility] Comment on above: Order Comment: Speci men Type: BLOOD SPECIMENOrdering Facility: [facility] Address: [address] [address] Performed By: #### 1 9123-9, 02772-9, [id number] ####[facility] LABCLIA [id number] [place] [address] [place] Calcium [Mass/Vol] 9.3 mg/dL Normal 8.5-10.2 [facility] Comment on above: Order Comment: Speci men Type: BLOOD SPECIMENOrdering Facility: [facility] Address: [address] [address] Performed By: #### 1 9123-9, 67234-8, [id number] ####[facility] LABCLIA [id number] [place] [address] [place] Chloride [Moles/Vol] 105 mmol/L Normal 97-105 [facility] Comment on above: Order Comment: Speci men Type: BLOOD SPECIMENOrdering Facility: [facility] Address: [address] Performed By: #### 1 9123-9, 37799-3, [id number] ####[facility] LABCLIA [id number] [place] [address] [place] CO2 [Moles/Vol] 23 mmol/L Normal 22-30 [facility] Comment on above: Order Comment: Speci men Type: BLOOD SPECIMENOrdering Facility: [facility] Address: [address] [place] [address] Performed By: #### 1 9123-9, 69697-3, [id number] ####[facility] LABCLIA [id number] [place] [address] [place] Creatinine [Mass/Vol] 0.88 mg/dL Normal 0.73-1.22 [facility] Comment on above: Order Comment: Speci men Type: BLOOD SPECIMENOrdering Facility: [facility] Address: [address] [place] [address] Performed By: #### 1 9123-9, 57285-9, [id number] ####[facility] LABIA [id number] [place] [address] [place] ESTIMATED GLOMERULAR FILTRATION RATE 103 mL/min/1.73m??? Normal >=60 [facility] Comment on above: Order Comment: Speci men Type: BLOOD SPECIMENOrdering Facility: [facility] Address: [address] [place] [address] Result Comment: [facility] mated Glomerular Filtration Rate (eGFR) is calculated using the 2020 CKD-EPI creatinine equation. This equation utilizes serum creatinine, sex, and age as parameters. The creatinine assay has traceable calibration to isotope dilution-mass spectrometry. Refer to KDIGO guidelines for clinical interpretation. In patients with unstable renal function, e.g. those with acute kidney injury, the eGFR may not accurately reflect actual GFR. Performed By: #### 1 9123-9, 73542-6, [id number] ####[facility]CLIA [id number] [place] [address] [place] Glucose [Mass/Vol] 112 mg/dL High 74-99 [facility] Comment on above: Order Comment: Speci men Type: BLOOD SPECIMENOrdering Facility: [facility] Address: [address] [address] Result Comment: The [place] Diabetes Association (ADA) provides guidance for cutoff values for fasting glucose and random glucose. The ADA defines fasting as no caloric intake for at least 8 hours. Fasting plasma glucose results between 100 to 125 mg/dL indicate increased risk for diabetes (prediabetes). Fasting plasma glucose results greater than or equal to 126 mg/dL meet the criteria for diagnosis of diabetes. In the absence of unequivocal hyperglycemia, results should be confirmed by repeat testing. In a patient with classic symptoms of hyperglycemia or hyperglycemic crisis, random plasma glucose results greater than or equal to 200 mg/dL meet the criteria for diagnosis of diabetes. Reference: Standards of Medical Care in Diabetes 2016, [place] [employer] Association. Diabetes Care. 2016.39(Suppl 1). Performed By: #### 1 9123-9, 94712-0, [id number] ####[facility] [id number] [place] [address] [place] Potassium [Moles/Vol] 3.6 mmol/L Low 3.7-5.1 [facility] Comment on above: Order Comment: Speci men Type: BLOOD SPECIMENOrdering Facility: [facility] Address: [place] Performed By: #### 1 9123-9, 40942-8, [id number] ####[facility] [id number] [place] [address] [place] Sodium [Moles/Vol] 139 mmol/L Normal 136-144 [facility] Comment on above: Order Comment: Speci men Type: BLOOD SPECIMENOrdering Facility: [facility] Address: [address] Performed By: #### 1 9123-9, 70397-4, [id number] ####[facility] [id number] [place] [address] [place] Urea nitrogen [Mass/Vol] 11 mg/dL Normal 9-24 [facility] Comment on above: Order Comment: Speci men Type: BLOOD SPECIMENOrdering Facility: [facility] Address: [address] [place] [address] Performed By: #### 1 9123-9, 45097-8, [id number] ####[facility] [id number] [place] [address] [place] CBC W Auto Differential pane l (Bld)on 08-26-2022 Basophils (Bld) [#/Vol] 0.04 10*3/uL Normal <0.11 [facility] Comment on above: Order Comment: Speci men Type: BLOOD SPECIMENOrdering Facility: [facility] Address: [address] [place] [address] Performed By: #### 5 7021-8 ####[facility] [id number] [place] [address] [place] Basophils/100 WBC (Bld) 0.5 % Normal [facility] Comment on above: Order Comment: Speci men Type: BLOOD SPECIMENOrdering Facility: [facility] Address: [address] [place] [address] Performed By: #### 5 7021-8 ####[facility] [id number] [place] [address] [place] Differential cell count method Nom (Bld) Auto Normal [facility] Comment on above: Order Comment: Speci men Type: BLOOD SPECIMENOrdering Facility: [facility] Address: [address] [place] [address] Performed By: #### 5 7021-8 ####[facility] [id number] [place] [address] [place] Eosinophils (Bld) [#/Vol] 0.06 10*3/uL Normal <0.46 [facility] Comment on above: Order Comment: Speci men Type: BLOOD SPECIMENOrdering Facility: [facility] Address: [address] Performed By: #### 5 7021-8 ####[facility] [id number] [address] [place] Eosinophils/100 WBC (Bld) 0.7 % Normal [facility] Comment on above: Order Comment: Speci men Type: BLOOD SPECIMENOrdering Facility: [facility] Address: [address] Performed By: #### 5 7021-8 ####[facility] [id number] [place] [address] [place] Erythrocyte distribution width (RBC) [Ratio] 12.2 % Normal 11.5-15.0 [facility] Comment on above: Order Comment: Speci men Type: BLOOD SPECIMENOrdering Facility: [facility] Address: [address] Performed By: #### 5 7021-8 ####[facility] [id number] [place] [address] [place] Hematocrit (Bld) [Volume fraction] 43.6 % Normal 39.0-51.0 [facility] Comment on above: Order Comment: Speci men Type: BLOOD SPECIMENOrdering Facility: [facility] Address: [address] Performed By: #### 5 7021-8 ####[facility] [id number] [place] [address] [place] Hemoglobin (Bld) [Mass/Vol] 15.0 g/dL Normal 13.0-17.0 [facility] Comment on above: Order Comment: Speci men Type: BLOOD SPECIMENOrdering Facility: [facility] Address: [address] Performed By: #### 5 7021-8 ####[facility] [id number] [place] [address] [place] Immature granulocytes (Bld) [#/Vol] 0.03 10*3/uL Normal <0.10 [facility] Comment on above: Order Comment: Speci men Type: BLOOD SPECIMENOrdering Facility: [facility] Address: [address] [place] [address] Performed By: #### 5 7021-8 ####[facility] [id number] [address] [place] Immature granulocytes/100 WBC (Bld) 0.4 % Normal [facility] Comment on above: Order Comment: Speci men Type: BLOOD SPECIMENOrdering Facility: [facility] Address: [address] [place] [address] Performed By: #### 5 7021-8 ####[facility]IA [id number] [place] [address] [place] Lymphocytes (Bld) [#/Vol] 1.40 10*3/uL Normal 1.00-4.00 [facility] Comment on above: Order Comment: Speci men Type: BLOOD SPECIMENOrdering Facility: [facility] Address: [address] [place], [place] [address] Performed By: #### 5 7021-8 ####[facility]IA [id number] [place] [address] [place] Lymphocytes/100 WBC (Bld) 17.1 % Normal [facility] Comment on above: Order Comment: Speci men Type: BLOOD SPECIMENOrdering Facility: [facility] Address: [address] [place], [place] [address] Performed By: #### 5 7021-8 ####[facility] [id number] [place] [address] [place] MCH (RBC) [Entitic mass] 30.5 pg Normal 26.0-34.0 [facility] Comment on above: Order Comment: Speci men Type: BLOOD SPECIMENOrdering Facility: [facility] Address: [address] Performed By: #### 5 7021-8 ####[facility] LABIA [id number] [place] [address] [place] MCHC (RBC) [Mass/Vol] 34.4 g/dL Normal 30.5-36.0 [facility] Comment on above: Order Comment: Speci men Type: BLOOD SPECIMENOrdering Facility: [facility] Address: [address] [place] [address] Performed By: #### 5 7021-8 ####[facility]IA [id number] [place] [address] [place] MCV (RBC) [Entitic vol] 88.8 fL Normal 80.0-100.0 [facility] Comment on above: Order Comment: Speci men Type: BLOOD SPECIMENOrdering Facility: [facility] Address: [address] [place], [place] [address] Performed By: #### 5 7021-8 ####[facility]IA [id number] [place] [address] [place] Monocytes (Bld) [#/Vol] 0.50 10*3/uL Normal <0.87 [facility] Comment on above: Order Comment: Speci men Type: BLOOD SPECIMENOrdering Facility: [facility] Address: [address] Performed By: #### 5 7021-8 ####[facility]IA [id number] [address] [place] Monocytes/100 WBC (Bld) 6.1 % Normal [facility] Comment on above: Order Comment: Speci men Type: BLOOD SPECIMENOrdering Facility: [facility] Address: [address] [place], [place] [address] Performed By: #### 5 7021-8 ####[facility] [id number] [place] [address] [place] Neutrophils (Bld) [#/Vol] 6.17 10*3/uL Normal 1.45-7.50 [facility] Comment on above: Order Comment: Speci men Type: BLOOD SPECIMENOrdering Facility: [facility] Address: [address] [place], [place] [address] Performed By: #### 5 7021-8 ####[facility] [id number] [place] [address] [place] Neutrophils/100 WBC (Bld) 75.2 % Normal [facility] Comment on above: Order Comment: Speci men Type: BLOOD SPECIMENOrdering Facility: [facility] Address: [address] [place], [place] [address] Performed By: #### 5 7021-8 ####[facility]CL[facility] [id number] [place] [address] [place] Nucleated RBC (Bld) [#/Vol] 10*3/uL Normal <0.01 [facility] Comment on above: Order Comment: Speci men Type: BLOOD SPECIMENOrdering Facility: [facility] Address: [address] [place], [place] [address] Performed By: #### 5 7021-8 ####[facility] [id number] [place] [address] [place] Nucleated RBC/100 WBC (Bld) [Ratio] 0.0 /100 WBC Normal [facility] Comment on above: Order Comment: Speci men Type: BLOOD SPECIMENOrdering Facility: [facility] Address: [address] [place] [address] Performed By: #### 5 7021-8 ####[facility] [id number] [place] [address] [place] Platelet mean volume (Bld) [Entitic vol] 11.0 fL Normal 9.0-12.7 [facility] Comment on above: Order Comment: Speci men Type: BLOOD SPECIMENOrdering Facility: [facility] Address: [address] [place], [place] [address] Performed By: #### 5 7021-8 ####[facility] [id number] [place] [address] [place] Platelets (Bld) [#/Vol] 183 10*3/uL Normal 150-400 [facility] Comment on above: Order Comment: Speci men Type: BLOOD SPECIMENOrdering Facility: [facility] Address: [address] [place], [place] [address] Performed By: #### 5 7021-8 ####[facility] [id number] [place] [address] [place] RBC (Bld) [#/Vol] 4.91 10*6/uL Normal 4.20-6.00 [facility] Comment on above: Order Comment: Speci men Type: BLOOD SPECIMENOrdering Facility: [facility] Address: [address] [place], [place] [address] Performed By: #### 5 7021-8 ####[facility] [id number] [place] [address] [place] WBC (Bld) [#/Vol] 8.20 10*3/uL Normal 3.70-11.00 [facility] Comment on above: Order Comment: Speci men Type: BLOOD SPECIMENOrdering Facility: [facility] Address: [address] [place], [place] [address] Performed By: #### 5 7021-8 ####[facility]CL[facility] [id number] [place] [address] [place] [id number] 08-26-2022 ECG01 Ventricular Rate : 6 2 BPM Atrial Rate : 62 BPM P-R Interval : 184 ms QRS Duration : 98 ms Q-T Interval : 432 ms QTC Calculation(Bazett) : 438 ms Calculated P [place] : 0 degrees Calculated R [place] : 23 degrees Calculated T [place] : -3 degrees NORMAL SINUS RHYTHM NORMAL ECG Confirmed by MD MAX, PhD, REGIS ([id number]) on 10/18/2022 9:25:30 AM NAME : IVAN LANGFORD PID : [id number] : 1970 Gender : Male Race : ORD : Procedure Date : Aug 26 2022 11:23:25 Edit Date : Oct 18 2022 09:25:39 Diagnosis: NORMAL SINUS RHYTHM NORMAL ECG Confirmed by MD MAX, PhD, REGIS ([id number]) on 10/18/2022 9:25:30 AM Test Reason : Location : 339 : G20NS Overread By : MD MAX, PhD,REGIS Edited By : MD MAX, PhD,REGIS Referred By : , Acquired by : Jessica YOO [facility] ED NOTEon 08-26-2022 ED NOTE HNO ID: [id number] Author: Brianna Casper APRN.RN STARS Service: Emergency Medicine Author Type: Nurse Practitioner Type: ED Notes Filed: 08/26/2022 12:15 PM Note Text: Returned from radiology. Call yanez in reach. No complaints at this time. Normal [facility] ED NOTE HNO ID: [id number] Author: Brianna Casper APRN.RN STARS Service: Emergency Medicine Author Type: Nurse Practitioner Type: ED Notes Filed: 08/26/2022 11:53 AM Note Text: [facility] presented to ED for chest pain. At appointment for and became anxious and noted SOB. Pain worse prior to arrival and currently subsiding. No SOB. Normal [facility] ED NOTE HNO ID: [id number] Author: Austin Cm, Medic Service: Emergency Medicine Author Type: Wood Cabinetmaker and Staff Technologist Type: ED Notes Filed: 08/26/2022 11:49 AM Note Text: Pt labs in bin #11 [facility] ED NOTE HNO ID: [id number] Author: Angelica Bass RN Service: ? Author Type: Registered Nurse Type: ED Notes Filed: 08/26/2022 11:33 AM Note Text: Bed: E15-11 Expected date: Expected time: Means of arrival: Comments: EMS Normal [facility] ED PROV NOTEon 08-26-2022 ED PROV NOTE HNO ID: [id number] Author: Yonathan Collins MD Service: Emergency Medicine Author Type: Physician Type: ED Provider Notes Filed: 08/27/2022 8:18 PM Note Text: ED Provider Note Patient Name: Ivan Langford : 1970 SERVICE DATE: 08/26/22 History Patient presents with: Chest Pain: Pt arrived via [facility]. Pt endorsing chest pain that began while at bedside with his in the ICU. Chest pain has lessened to a 2/10 with a pressure feeling. 52yo M with PMH of HTN, presents to the emergency department with chest pain. Patient reports that he was in the ICU at bedside of his and was speaking to doctors about further interventions when he had sudden onset midsternal chest pain. Notes pain radiating to left side of chest. Does not feel short of breath, no lightheadedness or dizziness. He denies prior episodes of chest pain similar to this, no prior cardiac history. No associated nausea, vomiting, diaphoresis. PAST MEDICAL HISTORY Diagnosis Date Hypertension No past surgical history on file. No family history on file. Social History Tobacco Use Smoking status: Never Smokeless tobacco: Never Substance and Sexual Activity Alcohol use: Yes Comment: social Drug use: Not on file Sexual activity: Not on file ALLERGIES Allergen Reactions Contrast Dye [Iodin* Rash Review of Systems Constitutional: Negative for chills and fever. HENT: Negative for congestion. Respiratory: Negative for cough and shortness of breath. Cardiovascular: Positive for chest pain. Gastrointestinal: Negative for nausea and vomiting. Musculoskeletal: Negative for myalgias. Skin: Negative for rash. Allergic/Immunologic: Negative for immunocompromised state. Neurological: Negative for light-headedness. Hematological: Does not bruise/bleed easily. Psychiatric/Behaviora l: Negative for agitation and behavioral problems. Physical Exam Vitals BP Pulse Temp Temp src Resp SpO2 Weight Height 08/26/22 1146 08/26/22 1146 08/26/22 1146 08/26/22 1415 08/26/22 1146 08/26/22 1146 08/26/22 1146 -- 152/84 63 37 ?C (98.6 ?F) Oral 16 97 % 106.6 kg (235 lb) Physical Exam Vitals and nursing note reviewed. Constitutional: Appearance: He is well-developed. HENT: Head: Normocephalic and atraumatic. Cardiovascular: Rate and Rhythm: Normal rate and regular rhythm. Pulmonary: Effort: Pulmonary effort is normal. Breath sounds: Normal breath sounds. No decreased breath sounds or wheezing. Musculoskeletal: Cervical back: Neck supple. Right lower leg: No edema. Left lower leg: No edema. Skin: General: Skin is warm. Capillary Refill: Capillary refill takes less than 2 seconds. Neurological: General: No focal deficit present. Mental Status: He is alert and oriented to person, place, and time. Psychiatric: Mood and Affect: Mood normal. Diagnostic Testing ED Labs Ordered and Reviewed BASIC METABOLIC PNL - Abnormal; Notable for the following components: Result Value Ref Range Glucose 112 (*) 74 - 99 mg/dL Potassium 3.6 (*) 3.7 - 5.1 mmol/L All other components within normal limits HIGH SENSITIVITY TROPONIN T (INITIAL) - Normal MAGNESIUM BLD - Normal HIGH SENSITIVITY TROPONIN T (SECOND) - Normal CBC + DIFF Narrative: This is an appended report. These results have been appended to a previously verified report. Procedures ED Course / Clinical Impression Clinical Impressions as of 08/26/221914 Atypical chest pain Anxiety MDM / Disposition / Plan Patient presented the emergency department complaint of chest pain. He is afebrile hemodynamically stable in no acute distress. EKG on arrival with normal sinus rhythm, no ischemic changes. High-sensitivity troponin x2 is negative. CBC and metabolic panel are unremarkable. Chest x-ray without acute findings. Patient was given Atarax for anxiety here in the emergency department, reports improvement of symptoms following this. Low suspicion for ACS, PE, pneumothorax, pneumonia at this time. Patient discharged, provided prescription for Atarax, follow-up with PCP as needed. History and Record Review External record(s) reviewed: no prior records. Differential Diagnoses - PE is less likely for the following reason(s): not hypoxic and not tachycardic - ACS is less likely for the following reason(s): no evidence of ACS based on cardiac biomarkers, EKG without ischemia and history not suggestive of ischemic pain - Pneumothorax is less likely for the following reason(s): bilateral breath sounds and CXR without PTX - Pneumonia is less likely for the following reason(s): lungs clear to auscultation, CXR without infiltrate, no fever and no leukocytosis Management Radiology Reports XR CHEST 2V FRONTAL/LAT Final Result IMPRESSION: No acute findings. Bilingual Patient Support Caseworker: BHARATHI Transcribe Date/Time: Aug 26 2022 12:23P Dictated by : MATA TREVINO MD This examination was interpreted and the re (more content not included)... Normal [facility] HIGH SENSITIVITY TROPONIN T (INITIAL)on 08-26-2022 HIGH SENSITIVITY DIDIER <6 Normal <12 [facility] Comment on above: Order Comment: Ziggy dorado Type: BLOOD SPECIMENOrdering Facility: [facility] Address: [address] [place] [address] Result Comment: When assessing risk for acute coronary syndromes: In patients undergoing blood draw greater than or equal to 2 hours from symptom onset, with history of very low to moderate risk and non-ischemic ECG, an initial hs-Troponin T less than 12 ng/L AND a 1 hour delta hs-Troponin T less than 3 ng/L should be considered very low risk for 30 day MACE. Performed By: #### 1 9123-9, 69852-7, [id number] ####[facility]CL[facility] [id number] [address] HIGH SENSITIVITY TROPONIN T (SECOND)on 08-26-2022 HIGH SENSITIVITY DIDIER <6 Normal <12 [facility] Comment on above: Order Comment: Ziggy dorado Type: BLOOD SPECIMENOrdering Facility: [facility] Address: [address] [place] [address] Result Comment: When assessing risk for acute coronary syndromes: In patients undergoing blood draw greater than or equal to 2 hours from symptom onset, with history of very low to moderate risk and non-ischemic ECG, an initial hs-Troponin T less than 12 ng/L AND a 1 hour delta hs-Troponin T less than 3 ng/L should be considered very low risk for 30 day MACE. Performed By: #### L [id number] ####[facility]CL[facility] [id number] [address] Magnesium SerPl-mCncon 08-26 Magnesium [Mass/Vol] 2.1 mg/dL Normal 1.7-2.3 [facility] Comment on above: Order Comment: Speci men Type: BLOOD SPECIMENOrdering Facility: [facility] Address: [address] [id number] Performed By: #### 1 9123-9, 73485-3, [id number] ####[facility] LABCLIA [id number] [facility] [address] XR CHEST 2V FRONTAL/LATon XR CHEST 2V FRONTAL/LAT * * *Final Repor t* * * DATE OF EXAM: Aug 26 2022 12:14PM EGX [id number] - XR CHEST 2V FRONTAL/LAT / PROCEDURE REASON: Chest pain, nonspecific * * * * Physician Interpretation * * * * EXAMINATION: CHEST RADIOGRAPH (2 VIEW FRONTAL and LATERAL) CLINICAL HISTORY: Chest pain, nonspecific MQ: [id number] EXAM DATE/TIME: 08/26/2022 12:14 PM COMPARISON: No relevant prior studies available. RESULT: Lines, tubes, and devices: None. Lungs and pleura: Lungs are clear, no focal consolidation. No pleural effusion. Cardiomediastinal silhouette: Cardiac silhouette is not enlarged. Bones and soft tissues: Unremarkable. IMPRESSION: No acute findings. Bilingual Patient Support Caseworker: BHARATHI Transcribe Date/Time: Aug 26 2022 12:23P Dictated by : MATA TREVINO MD This examination was interpreted and the report reviewed and electronically signed by: MATA TREVINO MD on Aug 26 2022 12:24PM EST [id number] Normal [facility] MRI LUMBAR SPINE WO IVCONon 08-20-2022 MRI LUMBAR SPINE WO IVCON * * *Final Report* * * DATE OF EXAM: Aug 20 2022 4:56PM CAM 0303 - MRI LUMBAR SPINE WO IVCON / PROCEDURE REASON: Spinal stenosis of lumbar region with neurogenic claudication * * * * Physician Interpretation * * * * EXAMINATION: MRI LUMBAR SPINE WO IVCON CLINICAL HISTORY: Spinal stenosis of lumbar region with neurogenic claudication TECHNIQUE: Routine lumbosacral spine MR protocol without gadolinium. MQ: [id number] COMPARISON: None. RESULT: Counting reference: Lumbosacral junction. For the purposes of this report, L4-5 is considered the level of the iliac crest and assume there are 5 lumbar-type vertebrae. Anatomic variant: None. Localizer images: No additional findings. Alignment: Grade 1 anterolisthesis L4-5. Bone marrow signal/fracture: No evidence of pathologic marrow infiltration. Bilateral L5 pars defects. Conus: The conus is within normal limits of signal intensity and morphology. Paraspinal soft tissues: Paraspinal soft tissues are within normal limits. Lower thoracic spine: Visualized lower thoracic canal and foramina are patent. L1-L2: Canal and foramina are patent. L2-L3: Canal and foramina are patent L3-L4: Canal and foramina are patent L4-L5: Facet hypertrophy contributing to minimal bilateral foraminal narrowing. L5-S1: Spondylolytic anterolisthesis and disc pseudobulging. Mild right and mild to moderate left foraminal stenosis. Spinal canal is patent. Sacrum and iliac wings: Degenerative change bilateral sacroiliac joints. The visualized sacrum and iliac wings are within normal limits. IMPRESSION: Chronic bilateral L5 pars defects with grade 1 anterolisthesis, contributing to foraminal narrowing at L5-S1. Otherwise, low lumbar spondylosis without severe spinal canal stenosis. Anatomic Lumbar Variant: None. L4-5 is considered the level of the iliac crest and assume there are 5 lumbar-type vertebrae. Bilingual Patient Support Caseworker: [facility] Transcribe Date/Time: Aug 20 2022 6:53P Dictated by : XIOMARA FUNK MD This examination was interpreted and the report reviewed and electronically signed by: XIOMARA FUNK MD on Aug 20 2022 6:58PM EST [id number] Normal [facility] CNOVon 07-15-2022 CNOV Office Visit (SPNSMN ) IVAN LANGFORD ([id number]) 1970 M Date Time Provider Department 07/15/22 10:30 AM DOMINGUEZ PERKINS SPNSMN During your visit today, we recorded the following information about you: Pulse Respiration Blood pressure Weight 63/minute 14/minute 152/80 113.9 kg Height 1.778 m Dominguez Perkins MD, PhD 07/15/2022 4:38 PM Signed [facility] New Patient Evaluation Consulting Provider: No referring provider defined for this encounter. Individuals who were included in, or assisted with the encounter were: Ivan Langford Dominguez Perkins MD, PhD Chief Complaint/Issues: Ivan Langford is a 51 year old male seen in the [facility] for: Right leg tingling Right sciatic nerve tumor HPI: The patient presents with complaints of right leg tingling. This began in September 2021 as intermittent right leg tingling on the lateral aspect of the right leg to the ankle. He describes this as pins and needles, not pain. Later the symptoms progressed into the top of the knee cap and then into the back of the thigh. He feels his symptoms have worsened. He now also has right groin and testicular pain. He notes his symptoms are best when he first wakes up and worsen throughout the day. He feels symptoms are worse with sitting. He does have some lower back pain only while sitting for long periods. He has complaints of minor weakness throughout the right leg. 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 General Examination: BP 152/80 Pulse 63 Resp 14 Ht 177.8 cm (5' 10) Wt 113.9 kg (251 lb) SpO2 97% BMI 36.01 kg/m? General: Awake, alert, interactive, no acute distress, good nutritional status, normal development, well-kept Neurological Exam Mental Status Alert, fully oriented, attentive, with normal cognition, memory, speech and affect. Cranial Nerves Visual flores intact. Fundi with normal discs and vasculature. Pupils reactive. Extraocular movements conjugate and full. No ptosis. No nystagmus. Facial sensation intact. Face symmetric and strong. Palate and tongue normal. XI normal. Motor Examination and Coordination Neuromuscular Examination Extremity Muscles Lower Extremity Right Left Hip flexion 5 5 Knee flexion 5 5 Knee extension 5 5 Ankle plantarflexion 5 5 Ankle dorsiflexion 5 5 Sensation Intact to light touch in the tibial, peroneal, saphenous, and sural nerve distributions Gait Casual gait normal. Lab and Test Review: EMG/NCS 03/22/2022: Mononeuropathy of the right peroneal nerve. CT pelvis and CT right femur 04/16/2022: No evidence of fiber discontinuity of the included right sciatic nerve. There is grade 1 anterolisthesis of L 4 and L5 with bilateral L5 pars defect MRI right knee 04/16/22: No evidence of fiber discontinuity of the visualized sciatic nerve. A 0.7 cm ovoid mildly enhancing lesion of the sciatic nerve at the level of the proximal tibial metaphysis as a differential diagnosis of a schwannoma, neurofibroma or other nerve sheath tumors. Tricompartmental osteoarthritis. 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 I have ordered a MRI knee with contrast to evaluate for any evidence of growth in 6 months. The patient does have a known L4-5 spondylolisthesis due to bilateral pars defects. I suspect his tingling may be coming from this source. I have recommended he obtained a MRI L-spine along with flexion-extension films for evaluation. I will plan to see the patient back virtually to review the imaging of his spine. Encounter Diagnosis ICD-10-CM 1. Spinal stenosis of lumbar region with neurogenic claudication M48.062 MRI LUMBAR SPINE WO IVCON 2. Localized swelling, mass, or lump of right lower extremity R22.41 MRI KNEE WO/W IVCON RT Return for Follow up virtually after MRI L-spine. == Data Review Objective Current Outpatient Medications Medication Sig losartan (COZAAR) 25 mg tablet TAKE 1/2 (ONE-HALF) TO 1 (ONE) TABLET BY MOUTH AT BEDTIME Ascorbic Acid 1,000 mg tablet Take by mouth. fluticasone (FLONASE) 50 mcg/actuation nasal spray Fluticasone Propionate Active 1 SPRAY NASAL DAILY March 26, 2019 12:00am loratadine 10 mg cap Take by mouth. iv contrast (will be provided with radiolog (more content not included)... Normal [facility] CT FEMUR W/ CONTRAST RIGHTon 04-16-2022 CT FEMUR W/ CONTRAST RIGHT ORIGINAL EXAMINATION: CT OF THE PELVIS WITH CONTRAST; CT OF THE RIGHT FEMUR WITH CONTRAST 04/16/2022 9:48 am TECHNIQUE: CT of the pelvis was performed with the administration of intravenous contrast. Multiplanar reformatted images are provided for review. Automated exposure control, iterative reconstruction, and/or weight based adjustment of the mA/kV was utilized to reduce the radiation dose to as low as reasonably achievable.; CT of the right femur was performed with the administration of intravenous contrast. Multiplanar reformatted images are provided for review. Automated exposure control, iterative reconstruction, and/or weight based adjustment of the mA/kV was utilized to reduce the radiation dose to as low as reasonably achievable. COMPARISON: MRI knee 04/16/2022. HISTORY: ORDERING SYSTEM PROVIDED HISTORY: Reason for Exam: Injury of sciatic nerve at hip and thigh level, right leg, initial encounter. FINDINGS: Evaluation of the right sciatic nerve to the level of the knee demonstrates no appreciable fiber discontinuity. The visualized portions of the contralateral left sciatic nerve are unremarkable. The visualized portions of the right common peroneal nerve also appear intact. Visible muscles exhibit normal bulk. There is no evidence of muscle atrophy. Tendons and ligaments are poorly evaluated on this examination. The included intra-abdominal/pelvi c contents exhibit no acute abnormalities. No visible pathologically enlarged lymph nodes. Likely vasectomy changes. No acute skeletal abnormality is demonstrated. No visible aggressive osseous lesions. There are mild bilateral hip degenerative changes, right greater than left with joint space narrowing, marginal osteophytes, and subchondral cysts. Mild degenerative changes are noted of the pubic symphysis as well as sacroiliac joints. No evidence of sacroiliac joint osseous erosion or ankylosis. Lower lumbar facet arthrosis noted. Grade 1 anterolisthesis of L4 on L5. Bilateral L5 pars defects noted. Mild degenerative changes of the knee. IMPRESSION: 1. No evidence of fiber discontinuity of the included right sciatic nerve. Unremarkable left sciatic nerve. Unremarkable visible right common peroneal nerve. Interpreted by: Oliverio Mccullough DO Preliminary Report By: Oliverio Mccullough DO Electronically signed By Oliverio Mccullough DO Dictated Date: 04/16/2022 12:33:45 PM Prelim Date: 04/16/2022 12:43:46 PM Sign Date: 04/16/2022 12:43:46 PM Ordering Provider: BERTHA Lopez [facility] ([place]) CT PELVIS W/ CONTRASTon 09-0 CT PELVIS W/ CONTRAST ORIGINAL EXAMINATION: CT OF THE PELVIS WITH CONTRAST; CT OF THE RIGHT FEMUR WITH CONTRAST 04/16/2022 9:48 am TECHNIQUE: CT of the pelvis was performed with the administration of intravenous contrast. Multiplanar reformatted images are provided for review. Automated exposure control, iterative reconstruction, and/or weight based adjustment of the mA/kV was utilized to reduce the radiation dose to as low as reasonably achievable.; CT of the right femur was performed with the administration of intravenous contrast. Multiplanar reformatted images are provided for review. Automated exposure control, iterative reconstruction, and/or weight based adjustment of the mA/kV was utilized to reduce the radiation dose to as low as reasonably achievable. COMPARISON: MRI knee 04/16/2022. HISTORY: ORDERING SYSTEM PROVIDED HISTORY: Reason for Exam: Injury of sciatic nerve at hip and thigh level, right leg, initial encounter. FINDINGS: Evaluation of the right sciatic nerve to the level of the knee demonstrates no appreciable fiber discontinuity. The visualized portions of the contralateral left sciatic nerve are unremarkable. The visualized portions of the right common peroneal nerve also appear intact. Visible muscles exhibit normal bulk. There is no evidence of muscle atrophy. Tendons and ligaments are poorly evaluated on this examination. The included intra-abdominal/pelvi c contents exhibit no acute abnormalities. No visible pathologically enlarged lymph nodes. Likely vasectomy changes. No acute skeletal abnormality is demonstrated. No visible aggressive osseous lesions. There are mild bilateral hip degenerative changes, right greater than left with joint space narrowing, marginal osteophytes, and subchondral cysts. Mild degenerative changes are noted of the pubic symphysis as well as sacroiliac joints. No evidence of sacroiliac joint osseous erosion or ankylosis. Lower lumbar facet arthrosis noted. Grade 1 anterolisthesis of L4 on L5. Bilateral L5 pars defects noted. Mild degenerative changes of the knee. IMPRESSION: 1. No evidence of fiber discontinuity of the included right sciatic nerve. Unremarkable left sciatic nerve. Unremarkable visible right common peroneal nerve. Interpreted by: Oliverio Mccullough DO Preliminary Report By: Oliverio Mccullough DO Electronically signed By Oliverio Mccullough DO Dictated Date: 04/16/2022 12:33:45 PM Prelim Date: 04/16/2022 12:43:46 PM Sign Date: 04/16/2022 12:43:46 PM Ordering Provider: BERTHA BOLAÑOS [facility] ([place]) MRI KNEE W/ + W/O [facility] KNEE W/ + W/O CONTRAST RIGHT ORIGINAL EXAMINATION: MRI OF THE RIGHT KNEE WITHOUT AND WITH CONTRAST04/16/2022 9:52 am TECHNIQUE: Multiplanar multisequence MRI of the right knee was performed without and with the administration of intravenous contrast. COMPARISON: None HISTORY: ORDERING SYSTEM PROVIDED HISTORY: Reason for Exam: Injury of sciatic nerve at hip and thigh level, right leg, initial encounter FINDINGS: MUSCLES, TENDONS, AND LIGAMENTS: The anterior cruciate ligament is intact. The posterior cruciate ligament is intact. The medial collateral ligament is intact. The lateral collateral ligament complex is intact. The popliteus and biceps femoris tendons, iliotibial band, and extensor mechanism are intact. MENISCI: Irregular curvilinear signal abnormality involving the substance of the posterior horn-body junction of medial meniscus does not meet criteria for tear and favors intrasubstance degeneration. The lateral meniscus is intact. OSSEOUS STRUCTURES AND JOINTS: No fracture or dislocation is evident. No visualized marrow replacing osseous lesions. No abnormal osseous enhancement. Low-grade articular cartilage thinning is present of the medial femorotibial compartment. There is overall low grade articular cartilage thinning of the lateral femorotibial compartment with scattered foci of intermediate to high-grade fissuring involving the central weight-bearing lateral femoral condyle with mild associated reactive subchondral marrow edema. Low-grade articular cartilage thinning and fibrillation is present of the lateral patellar facet. There is intermediate to high-grade articular cartilage thinning of the median ridge and medial facet. No significant joint effusion is evident. SOFT TISSUES: Trace volume Daigle's cyst. Involving the distal aspect of the sciatic nerve at the level of the proximal tibial metaphysis, there is an ovoid mildly enhancing lesion which measures 0.3 x 0.4 x 0.7 cm (AP, transverse, craniocaudal dimension), best seen on axial image 45 and sagittal image respectively. The included sciatic nerve is otherwise normal in signal and morphology. No definite discontinuity. The included common peroneal nerve is normal in appearance. Nonspecific prepatellar/proximal pretibial subcutaneous edema. A multilobulated ganglion is noted deep to the myotendinous junction of the pes anserine tendons at the level of the distal femoral metaphysis medially. IMPRESSION: 1. No evidence of fiber discontinuity of the visualized sciatic nerve. A 0.7 cm ovoid mildly enhancing lesion of the sciatic nerve at the level of the proximal tibial metaphysis as a differential diagnosis of schwannoma, neurofibroma, or other nerve sheath tumors. 2. Tricompartmental osteoarthrosis. 3. Findings favoring intrasubstance degeneration of posterior horn-body junction of medial meniscus, not meeting criteria for meniscal tear. 4. Additional findings, as above. Interpreted by: Oliverio Mccullough DO Preliminary Report By: Oliverio Mccullough DO Electronically signed By Oliverio Mccullough DO Dictated Date: 04/16/2022 12:21:44 PM Prelim Date: 04/16/2022 12:33:32 PM Sign Date: 04/16/2022 12:33:32 PM Ordering Provider: BERTHA Lopez [facility]) ANCAon 04-02-2022 C-ANCA 3.3 Normal 0.0-20.0 [facility]) Comment on above: Result Comment: NEW REFERENCE RANGES FOR ANCA BY EIA: Effective 07-03- NEGATIVE <= 20 UNITS WEAK POSITIVE 21 - 30 UNITS MOD. TO STRONG POSITIVE > 30 UNITS A positive result indicates the presence of WI-3 antibodies and suggests the possibility of certain autoimmune vasculitides such as Autumn?s granulomatosis. A negative result indicates no WI-3 antibody or levels below the negative cut-off of the assay. These results were obtained with the [employer] QUANTA Lite WI-3 IgG ISAURA. WI-3 values obtained with different manufacturers? assay methods may not be used interchangeably. The magnitude of the reported IgG level cannot be correlated to an endpoint titer. Results of this assay should be used in conjunction with clinical findings. Performed By: #### L TOM, A1C #### [place] [address] [address] #### ANCA #### [address] [address] Cytoplasmic Neutro. Ab. See Below Normal A [facility] ([place]) Comment on above: Performed By: #### L TOM, A1C #### [place] [address] [address] #### ANCA #### [address] [address] P-ANCA 3.1 Normal 0.0-20.0 [facility] ([place]) Comment on above: Result Comment: NEW REFERENCE RANGES FOR ANCA BY EIA: Effective 11-26-19 NEGATIVE <= 20 UNITS WEAK POSITIVE 21 - 30 UNITS MOD. TO STRONG POSITIVE > 30 UNITS A positive result indicates the presence of MPO antibodies and suggests the possibility of certain autoimmune vasculitides such as microscopic polyarteritis, and crescentic glomerulonephritis. A negative result indicates no MPO antibody or levels below the negative cut-off of the assay. These results were obtained with the [employer] QUANTA Lite MPO IgG ISAURA. WI-3 values obtained with different manufacturers? assay methods may not be used interchangeably. The magnitude of the reported IgG level cannot be correlated to an endpoint titer. Results of this assay should be used in conjunction with clinical findings. Performed By: #### L TOM, A1C #### [address] [address] #### ANCA #### [address] [address] LMERLYon 03-31-2022 Lyme IgG/IgM AB Negative Normal Negative [facility] ([place]) Comment on above: Result Comment: Rece nt infection with B. burgdorferi sensu lato cannot be excluded if the specimen collected within four weeks after the onset of signs and symptoms or within six weeks after a known tick exposure. Clinical and epidemiological correlation is required. Performed By: [facility] [address] [place] [address] Clinical Quality Manager: Kaylen Dee III#: [id number] Performed By: #### Annalee SANTOS, A1C #### [address] [address] #### ANCA #### [address] [address] A1Con 03-29-2022 HbA1c (Bld) [Mass fraction] 5.4 % Normal 4.3-6.4 [facility] ([place]) Comment on above: Performed By: #### Annalee SANTOS, A1C #### [address] [address] #### ANCA #### [address] [address] Absolute lymphocyte counton 01-18-2022 Lymphocytes Auto (Unsp spec) [#/Vol] 1.40 10*3/uL 0.83-4.51 [facility] Work Phone: Basophil percentageon 2021 Basophils/100 WBC (Bld) 0.8 % 0-1 [facility] Work Phone: Bilirubin [Mass/Vol] 0.30 mg/dL 0.20-1.00 [facility] Work Phone: Comment on above: For patients on eltr ombopag therapy, use of Dimension [place] TBIL is not recommended. Chloride [Moles/Vol] 111 mmol/L 98-107 [facility] Work Phone: Eosinophils/100 WBC (Bld) 3.0 % 0-5 [facility] Work Phone: Glucose [Mass/Vol] 101 mg/dL 74-106 [facility] Work Phone: Comment on above: Fasting Glucose resu lt from 100 to 125 mg/dL suggests IMPAIRED HOMEOSTASIS per A.D.A. criteria. Neutrophils (Bld) [#/Vol] 2.8 10*3/uL 2.0-7.7 [facility] Work Phone: Neutrophils/100 WBC (Bld) 56.7 % 47-70 [facility] Work Phone: Potassium [Moles/Vol] 4.4 mmol/L 3.5-5.1 [facility] Work Phone: Protein [Mass/Vol] 7.1 g/dL 6.4-8.2 [facility] Work Phone: Sodium [Moles/Vol] 142 mmol/L 136-[address] [facility] Work Phone: WBC (Bld) [#/Vol] 5.0 10*3/uL 4.4-11.[address] [facility] Work Phone: [phone] Blood erythrocytes count (nu mber/volume)on 01-18-2022 RBC (Bld) [#/Vol] 4.80 10*6/uL 4.6-6.2 [facility] Work Phone: Blood hemoglobin measurement (mass/volume)on 01-18-2022 Hemoglobin (Bld) [Mass/Vol] 14.7 g/dL 13.0-16.5 [facility] Work Phone: Blood lymphocytes/100 leukoc yteson 01-18-2022 Lymphocytes/100 WBC (Bld) 28.2 % 19-41 [facility] Work Phone: Blood monocytes/100 leukocyt eson 01-18-2022 Monocytes/100 WBC (Bld) 11.1 % 0-10 [facility] Work Phone: Blood platelet mean volumeon 01-18-2022 Platelet mean volume (Bld) [Entitic vol] 11.1 fL 6.2-12.0 [facility] Work Phone: Determination of erythrocyte mean corpuscular volume (MCV)on 01-18-2022 MCV (RBC) [Entitic vol] 92.5 fL 80-94 [facility] Work Phone: Hematocrit Auto (Bld) [Volum e fraction]on 01-18-2022 Hematocrit (Bld) [Volume fraction] 44.4 % 40-54 [facility] Work Phone: Interpretation of Borrelia b urgdorferi antibody assayon 01-18-2022 B. burgdorferi Ab (S) [Interp] REF LAB [facility] Work Phone: Laboratory - Chemistry and C hemistry - challengeon 01-18-2022 ALP [Catalytic activity/Vol] 79 U/L 45-117 [facility] Work Phone: ALT [Catalytic activity/Vol] 32 U/L 16-61 [facility] Work Phone: [phone] CO2 [Moles/Vol] 28.0 mmol/L 21.0-32.0 [facility] Work Phone: [phone] Globulin (S) [Mass/Vol] 3.3 g/dL 2.2-4.2 [facility] Work Phone: Urea nitrogen/Creatinine [Mass ratio] 13.3 mg/mg 10-20 [facility] Work Phone: Laboratory - Hematology and Cell countson 01-18-2022 Erythrocyte distribution width (RBC) [Entitic vol] 43.4 fL 35.1-43.9 [facility] Work Phone: Erythrocyte distribution width (RBC) [Ratio] 12.7 % 11.6-14.6 [facility] Work Phone: Immature granulocytes/100 WBC (Bld) 0.200 % 0.0-0.9 [facility] Work Phone: Comment on above: IG% - Immature Granu locytes (promyelocytes, myelocytes and metamyelocytes) > 1% indicates that a LEFT SHIFT is Present. MCH (RBC) [Entitic mass] 30.6 pg 27.0-32.0 [facility] Work Phone: Nucleated RBC/100 WBC (Bld) [Ratio] 0 % 0-5 [facility] Work Phone: MCHC Auto (RBC) [Mass/Vol]on 01-18-2022 MCHC (RBC) [Mass/Vol] 33.1 g/dL 32-36 [facility] Work Phone: No Panel Informationon 01-18 Anti-Nuclear Antibody Screen Negative Negative [facility] Work Phone: Comment on above: Performed at: [place] [id number] Director: Donnell Desai PhD, Phone: [phone] Estimated GFR (MDRD) Amer 113 mL/min >60 [facility] Work Phone: Comment on above: GFR Calc Estimated GFR (MDRD) Non-Af Amer 94 mL/min >60 [facility] Work Phone: Comment on above: Non- GFR Calc Thyroid Stimulating Hormone (TSH) 1.74 uIU/mL 0.358-3.74 [facility] Work Phone: Platelets bldon 01-18-2022 Platelets (Bld) [#/Vol] 177 10*3/uL 150-450 [facility] Work Phone: Serum Treponema species anti body detectionon 01-18-2022 Treponema sp Ab Ql (S) Non-Reactive [facility] Work Phone: Serum or plasma albumin ekaterina urement (mass/volume)on 01-18-2022 Albumin [Mass/Vol] 3.8 g/dL 3.2-5.0 [facility] Work Phone: Serum or plasma albumin/glob ulin mass ratioon 01-18-2022 Albumin/Globulin [Mass ratio] 1.2 {ratio} 0.9-2.4 [facility] Work Phone: Serum or plasma calcium ekaterina urement (mass/volume)on 01-18-2022 Calcium [Mass/Vol] 8.9 mg/dL 8.5-10.1 [facility] Work Phone: Serum or plasma creatinine m easurement (mass/volume)on 01-18-2022 Creatinine [Mass/Vol] 0.90 mg/dL 0.70-1.30 [facility] Work Phone: Comment on above: The validity of the calculated GFR & GFRAA in patients over 70 years has not been determined. Clinical correlation is essential. Serum or plasma urea nitroge n measurement (mass/volume)on 01-18-2022 Urea nitrogen [Mass/Vol] 12 mg/dL 7-18 [facility] Work Phone: Thin prep Papanicolaou smear with manual screeningon 01-18-2022 Thin prep Papanicolaou smear with manual screening 15 U/L 15-37 [facility] Work Phone: Thin prep Papanicolaou smear with manual screening 3 5-15 [facility] Work Phone: Thin prep Papanicolaou smear with manual screening Negative Negative [facility] Work Phone: Comment on above: Lyme Antibody Negati veNo laboratory evidence of infection with B. burgdorferi(Lyme disease). Negative results may occur in patientsrecently infected (greater than or equal to 14 days) withB. burgdorferi. If recent infection is suspected, repeattesting on a new sample collected in 7 to 14 days isrecommended.Performed at: [address] [id number] Director: Donnell Desai PhD, Phone: [phone] Auto Diffon 01-24-2018 Basophils Auto #/vol (Bld) 0.0 E3/mcL Normal 0.0-0.2 [facility] Comment on above: Order Comment: Order Added by Discern Expert. Performed By: #### [id number] ####[id number] [place] [address] Basophils/100 WBC Auto (Bld) 0.6 % Normal 0.0-2.0 [facility] Comment on above: Order Comment: Order Added by Discern Expert. Performed By: #### [id number] ####[address]ITA [id number] [place] [address] [employer] Absolute 0.1 E3/mcL Normal 0.0-0.7 [facility] Comment on above: Order Comment: Order Added by Discern Expert. Performed By: #### 2 [id number] ####RITA [address]quezo[address] [place] [address] Eosinophils/100 leukocytes 1.6 % Normal 0.0-11.0 [facility] Comment on above: Order Comment: Order Added by Discern Expert. Performed By: #### 2 [id number] ####RITA [address] [place] [address] Lymphocytes 1.3 E3/mcL Normal 1.2-3.4 [facility] Comment on above: Order Comment: Order Added by Discern Expert. Performed By: #### 2 [id number] ####RITA [address] [place] [address] Lymphocytes/100 leukocytes 21.0 % Normal 20.0-55.0 [facility] Comment on above: Order Comment: Order Added by Discern Expert. Performed By: #### 2 [id number] ####RITA [address] [place] [address] Lake Absolute 0.5 E3/mcL Normal 0.0-0.7 [facility] Comment on above: Order Comment: Order Added by Discern Expert. Performed By: #### 2 [id number] ####RITA [address] [place] [address] Monocytes/100 leukocytes 8.8 % Normal 0.0-10.0 [facility] Comment on above: Order Comment: Order Added by Discern Expert. Performed By: #### 2 [id number] ####RITA [address] [place] [address] Neutro Absolute 4.0 E3/mcL Normal 1.4-6.5 [facility] Comment on above: Order Comment: Order Added by Discern Expert. Performed By: #### 2 [id number] ####RITA [address] [place] [address] Neutro Auto 68.0 % Normal 37.0-75.0 [facility] Comment on above: Order Comment: Order Added by Discern Expert. Performed By: #### 2 194785 ####RITA JwoMkaz[address] [place] [id number] BMPon 01-24-2018 BUN/Creatinine Ratio 15.0 ratio Normal 5.4-30.0 [facility] Comment on above: Performed By: #### 2 [id number] ####RITA SqwSazy4492 [place] [address] Calcium 9.2 mg/dL Normal 8.4-10.2 [facility] Comment on above: Performed By: #### 2 427111 ####RITA PoqJyfp9495 [place] [address] Chloride 110 mmol/L High 98-107 [facility] Comment on above: Performed By: #### 2 151934 ####RITA RioWtrj[address]74 [place] [address] CO2 23.9 mmol/L Low 24.0-30.0 [facility] Comment on above: Performed By: #### 2 542937 ####RITA RmuDvtx3670 [place] [address] Creatinine 0.8 mg/dL Normal 0.6-1.3 [facility] Comment on above: Performed By: #### 2 085713 ####RITA JwnJyju8166 [place] [address] Glucose mass conc 88 mg/dL Normal 70-99 [facility] Comment on above: Performed By: #### 2 947680 ####RITA BlhJpwn7188 [place] [address] Potassium molar conc 3.7 mmol/L Normal 3.5-5.1 [facility] Comment on above: Performed By: #### 2 189979 ####RITA KviHiyk4981 [place] [address] Sodium 143 mmol/L Normal 136-145 [facility] Comment on above: Performed By: #### 2 [id number] ####RITA PyxVxtv9153 [place] [address] Urea nitrogen 12 mg/dL Normal 7-18 [facility] Comment on above: Performed By: #### 2 160460 ####RITA UliXgdf6821 [place] [address] CBC w/ Auto Diffon 8 Erythrocyte distribution width Auto Ratio (RBC) 13.0 % Normal 11.5-14.5 [facility] Comment on above: Performed By: #### 2 506184 ####RITA XrmTuph[address] [place] [id number] Erythrocytes (RBC) 4.82 E6/mcL Normal 3.90-6.[address] [facility] Comment on above: Performed By: #### 2 256262 ####RITA [address]rYvag74[address] [place] [id number] Hematocrit (HCT) 43.2 % Normal 42.0-52.0 [facility] Comment on above: Performed By: #### 2 527863 ####RITAJillian CartwrightOmaTfdf9698 [place] [id number] Hemoglobin mass conc (Bld) 14.6 g/dL Normal 13.5-18.0 [facility] Comment on above: Performed By: #### 2 [id number] ####RITAJillian VelazquezIslVecy[address] [place] [address] MCH 30.3 pg Normal 27.0-31.0 [facility] Comment on above: Performed By: #### 2 350372 ####RITA BevBfkk7945 [place] [address] MCHC mass conc (RBC) 33.8 g/dL Normal 33.0-37.0 [facility] Comment on above: Performed By: #### 2 086763 ####RITAJillina VelazquezOtlNhth5884 [place] [address] MCV 89.5 fL Normal 78.0-100.0 [facility] Comment on above: Performed By: #### 2 [id number] ####RITAJillian CartwrightRryNhdm0188 [place] [address] Platelet mean volume (PMV) 9.0 fL Normal 7.4-11.0 [facility] Comment on above: Performed By: #### 2 439756 ####RITAJillian CartwrightBvcVrlt4442 [place] [address] Platelets 170 E3/mcL Normal 130-400 [facility] Comment on above: Performed By: #### 2 [id number] ####RITA FomLcln7616 [place] [address] WBC (Leukocytes) 6.0 E3/mcL Normal 3.6-11.0 [facility] Comment on above: Performed By: #### 2 259943 ####RITA ThmAuet1400 [place] [address] Magnesiumon 01-24-2018 Magnesium 2.0 mg/dL Normal 1.7-2.8 [facility] Comment on above: Performed By: #### 2 125309 ####RITA KmyIxhi7180 [place] [address] PTon 01-24-2018 INR Coag RelTime (PPP) 1.0 {INR} Normal 1.0-1.2 [facility] Comment on above: Result Comment: INR Recommended Therapeuptic Ranges: Prophylaxis/treatment of DVT and PE?2.0-3.0 Prevention of systemic embolism?.2.0-3.0 Mechanical prosthetic values?2.5-3.5 CRITICAL VALUES?.>4.0 Performed By: #### 2 [id number] ####RITA Hematology [employer]ated [address]fpm[address] [place] [address] Prothrombin time (PT) Coag time (PPP) 13.0 second(s) Normal 11.6-14.6 [facility] Comment on above: Performed By: #### 2 [id number] ####RITA Hematology [employer] [address] [place] [address] PTTon 01-24-2018 aPTT 27.6 second(s) Normal 23.2-36.4 [facility] Comment on above: Performed By: #### 2 301555 ####RITA Hematology [employer] Obc[address]icvq57[address] [place] [address] PTT Control Ratioon 01-25-20 18 PTT Ratio 0.9 ratio Normal 0.8-1.2 [facility] Comment on above: Order Comment: Order added by Discern Expert. Performed By: #### 8 [id number] ####RITA Hematology [employer] [address]vbwscx86[address] [place] [address] Troponin-Ion 01-24-2018 Troponin I.cardiac mass conc 0.01 ng/mL Normal .00-.03 [facility] Comment on above: Performed By: #### 2 [id number] ####RITA VykDtfx5494 [place] [address] Troponin I.cardiac mass conc ng/mL Normal .00-.03 [facility] Comment on above: Performed By: #### 2 729905 ####RITA Cqbkikwv4283 [place] [address] XR Chest AP Portableon 01-24 INR Coag RelTime (Bld) Exam Date/Time:01/24/2018 13:05 EDTReason for Exam:Chest painReportSTUDY:XR Chest AP Portable; 01/24/2018 1:05 pmINDICATION:Chest pain.COMPARISON:None. [id number] CLINICIAN:Ines HansenFINDINGS:CA RDIOMEDIASTINAL SILHOUETTE:Cardiomedi astinal silhouette is normal in size and configuration.LUNGS:L ungs are clear.ABDOMEN:No remarkable upper abdominal findings.BONES:No acute osseous changes.IMPRESSION:1. No evidence of acute cardiopulmonary process. FINAL REPORT Dictated: 01/24/2018 1:58 pm Andrea Lama MD KSigned (Electronic Signature): 01/24/2018 1:58 pmSigned by: nAdrea Lama MD Technologist: RICHA Normal [facility] eGFRon 01-24-2018 eGFR AA >[address] [facility] Comment on above: Order Comment: Order added by Discern Expert. Performed By: #### 1 [id number] ####RITA GfaPsqg4760 [place] [address] eGFR (non-black) mL/min/{1.73_m2} Normal [facility] Comment on above: Order Comment: Order added by Discern Expert. Performed By: #### 1 [id number] ####RITA SdvWljo4309 [place] [address] Vital Signs Date Time Vital Sign Value Performing Clinician Faci lity 12-08-2022 09:58-0500 Body height 177.8 cm Dominguez Perkins MD, PhD Work Phone: [facility] 07-15-2022 09:58-0500 Body weight 113.85 kg Dominguez Perkins MD, PhD Work Phone: [facility] 07-15-2022 09:58-0500 Diastolic blood pressure 80 mm[Hg] Dominguez Perkins MD, PhD Work Phone: [facility] 07-15-2022 09:58-0500 Heart rate 63 /min Dominguez Perkins MD, PhD Work Phone: [facility] 07-15-2022 09:58-0500 Respiratory rate 14 /min Dominguez Perkins MD, PhD Work Phone: [facility] 07-15-2022 09:58-0500 SaO2% (BldA) [Mass fraction] 97 % Dominguez Perkins MD, PhD Work Phone: [facility] 07-15-2022 09:58-0500 Systolic blood pressure 152 mm[Hg] Dominguez Perkins MD, PhD Work Phone: [facility] Encounters Encounter Date Encounter Type Care Provider Facility Start: 03-15-2025 End: 03-15-[address] Verena David MD Work Phone: -[facility] Start: 03-15-2025 End: 03-15-[address] Verena David MD -[facility] Start: 03-15-2025 End: 03-15-2025 ambulatory Verena David Facility:[facility] Start: 03-13-2025 End: 03-13-[address] Verena David MD Work Phone: -[facility] Start: 03-13-2025 End: 03-13-2025 Patient encounter procedure Jalyn Arriaga NP-C -[facility] Start: 03-13-2025 End: 03-13-2025 ambulatory Jalyn Arriaga NP Facility:[facility] Start: 01-10-2025 End: 01-10-[address] Verena David MD Work Phone: [facility] Work Phone: Start: 01-10-2025 End: 01-10-2025 Patient encounter procedure Jalyndiann Kevinalberto DAVEY-C -[facility] Start: 01-10-2025 End: 01-10-2025 ambulatory Verena David Facility:[facility] Start: 01-01-2025 End: 01-01-[address] Verena David MD Work Phone: [facility] Work Phone: Start: 01-01-2025 End: 01-01-[address] Verena David MD -Laboratory Work Phone: Start: 01-01-2025 End: 01-01-2025 ambulatory Verena David Facility:[facility] Start: 07-16-2023 End: 07-16-2023 ambulatory [facility] Work Phone: Start: 07-16-2023 End: 07-16-[address] [facility] Work Phone: Start: 09-16-2022 End: 09-16-2022 ambulatory VERENA DAVID Facility:[facility] Start: 09-16-2022 End: 09-16-2022 ambulatory Dominguez Perkins MD, PhD Work Phone: [facility] Comment on above: Spondylolisthesis of lumbosacral region (Primary Dx) Start: 09-16-2022 End: 09-16-2022 Telemedicine consultation with patient Dominguez Perkins MD, PhD Work Phone: [facility] Start: 08-26-2022 End: 08-26-2022 Emergency department patient visit YONATHAN COLLINS M.D. Facility:[facility] Start: 08-20-2022 ambulatory DOMINGUEZ PERKINS Facility:[facility] Start: 08-20-2022 End: 08-20-2022 Subsequent hospital visit by physician Mri Main Ca (1.5t) Work Phone: Radiology Comment on above: Spinal stenosis of l umbar region with neurogenic claudication [M48.062] Start: 07-15-2022 End: 07-15-2022 ambulatory DOMINGUEZ PERKINS Facility:[facility] Start: 07-15-2022 End: 07-15-2022 Patient encounter procedure Dominguez Perkins MD, PhD Work Phone: [facility] Comment on above: Spinal stenosis of l umbar region with neurogenic claudication (Primary Dx); Localized swelling, mass, or lump of right lower extremity Start: 06-16-2022 Chart abstracting Unk (Historical) N eurology Start: 04-16-2022 End: 04-16-2022 Patient encounter procedure BERTHA BOLAÑOS MD [facility] Start: 01-26-2022 End: 01-26-[address] [facility] Start: 01-18-2022 End: 01-18-[address] [facility], [facility] Start: 02-13-2018 End: 02-14-2018 Ambulatory [facility] Facility:[facility] Start: 02-13-2018 Patient encounter Facil [id number] Start: 01-25-2018 End: 01-26-2018 Ambulatory [facility] Facility:[facility] Start: 01-24-2018 End: 01-24-2018 Emergency department patient visit Ines Hansen Facility:[facility] Start: 01-24-2018 Patient encounter Facil [id number] Procedures Date Procedure Procedure Detail Performing Clinician Start: 03-15-[address] Verena David MD Work Phone: Comment on above: According to the National Academy of Cli nical Biochemistry,the reference interval for Thyroglobulin (TG) should berelated to euthyroid patients and not for patients whounderwent thyroidectomy. TG reference intervals for thesepatients depend on the residual mass of the thyroid tissueleft after surgery. Establishing a post-operative baselineis recommended. The assay limit of quantitation is 0.1ng/mLThyroglobulin measured by [facility] [place] [employer] Start: 03-15-[address] Verena David MD Work Phone: Comment on above: Thyroglobulin Antibody measured by Prasanth blake CoulterMethodologyIt should be noted that the presence of thyroglobulinantibodies may not be pathogenic nor diagnostic, especiallyat very low levels. The assay rivet machine operator has found thatfour percent of individuals without evidence of thyroiddisease or autoimmunity will have positive TgAb levels upto 4 IU/mL. Start: 01-10-2025 Prostate specific antigen measurement Dr. Verena David MD Work Phone: Comment on above: This test was performed using the [employer] tPSA method. Measured values of a patient sample can vary depending on the testing procedure used. PSA values determined on patient samples by different testing procedures cannot be used interchangeably. If there is a change in PSA assays while monitoring therapy, sequential testing should be performed to confirm baseline values. Start: 08-20-2022 Mri spinal canal lumbar w/o contrast material Dominguez Perkins MD, PhD Work Phone: Start: 01-26-2022 MRI of brain with contrast H/O: surgery S/P bilateral fo ot surgery H/O: vasectomy Status post vasectomy History of cholecystectomy Hx of cholecys tectomy Comment on above: 04/07/20 Plan of Treatment Date Care Activity Detail Author Start: 08-26-2025 DIABETES SCREEN DIABETES SCREEN [facility] Start: 01-13-2023 End: 08-14-2023 Mri any jt lower extrem w/contrast material MRI KNEE WO/W IVCON RT Radiology Routine Localized swelling, mass, or lump of right lower extremity Expected: 01/13/2023, Expires: 08/14/2023 [facility] Work Phone: Comment on above: Expected: 01/13/2023 , Expires: 08/14/2023 Start: 08-08-2022 [facility] Start: 04-08-2022 Influenza vaccination INFLUENZA (#1) [facility] Start: 08-08-2021 DEPRESSION ASSESSMENT DEPRESSION ASS ESSMENT [facility] Start: 01-15-2021 COVID-19 VACCINE (3 - Booster for Moderna series) COVID-19 VACCINE (3 - Booster for Moderna series) [facility] Start: 2019 SHINGRIX VACCINE (1 of 2) SHINGRIX VACCINE (1 of 2) [facility] Start: 2014 COLOGUARD (FIT-DNA) COLOGUARD (FIT-D NA) [facility] Start: 2014 Colonoscopy COLONOSCOPY [facility] Start: 2014 COLORECTAL CANCER SCREENING COLORECTAL CANCER SCREENING [facility] Start: [address] COLONOGRAPHY [facility] Start: 2014 DIABETES SCREEN DIABETES SCREEN [facility] Start: 2014 FECAL OCCULT BLOOD FECAL OCCULT BLOO D [facility] Start: 2014 SIGMOIDOSCOPY SIGMOIDOSCOPY [facility] Start: 2004 LIPID SCREEN LIPID SCREEN [facility] Start: 1988 Urine microalbumin profile DTAP,TDAP,TD (1 - Tdap) [facility] Start: 1987 HEPATITIS C SCREENING HEPATITIS C SC REENING [facility] Start: 1987 HIV SCREENING HIV SCREENING [facility] Start: 01-10-1970 COVID-19 VACCINE (#1) COVID-19 VACCI NE (#1) [facility] Start: 1969 HEPATITIS B (1 of 3 - 3-dose series) HEPATITIS B (1 of 3 - 3-dose series) [facility] Laboratory data interpretation [facility] Work Phone: End: 08-14-2023 Mri spinal canal lumbar w/o contrast material MRI LUMBAR SPINE WO IVCON Radiology Routine Spinal stenosis of lumbar region with neurogenic claudication 1 Occurrences starting 07/15/2022 until 08/14/2023 [facility] Work Phone: Comment on above: 1 Occurrences starti ng 07/15/2022 until 08/14/2023 End: 08-14-2023 Radex spine lumbosacral minimum 4 views XR LUMBAR MOTION 4V AP/LAT/ FLEX/EXT Radiology Routine Spinal stenosis of lumbar region with neurogenic claudication 1 Occurrences starting 07/15/2022 until 08/14/2023 [facility] Work Phone: Comment on above: 1 Occurrences starti ng 07/15/2022 until 08/14/2023 [facility] Payers Date Payer Category Payer Self-pay [id number] 2021 Private Health Insurance [id number] 2018 Private Health Insurance 2015 Private Health Insurance [id number] Private Health Insurance [id number] Private Health Insurance SELF PAY INSURAN CE [id number] Private Health Insurance [employer] [id number] Unknown Unknown [id number] Unknown [id number] Unknown [id number] Unknown [id number] Social History Date Type Detail Facility Start: 02-02-2021 End: 02-02-2021 Tobacco smoking status VAIS Unknown if ever smoked [facility] Start: 03-26-2019 Occasional [place] [facility] Start: 1970 Sex Assigned At Male A [facility] Tobacco smoking status No Smokin g Status Entered [facility] Start: 1970 Sex Assigned At Not on file [facility] Start: 02-02-2021 End: 07-15-2022 Tobacco smoking status NHIS Never smoked tobacco [facility] Start: 07-15-2022 Tobacco use and exposure Smokeless tobacco non-user [facility] Start: 07-15-2022 End: 09-16-2022 Alcohol intake Current drinker of alcohol (finding) [facility] Start: 12-08-2022 Alcohol Comment social [facility] Medical Equipment Procedure Code Equipment Code Equipment Original Text Equipment Identifier Dates Total cholecystectomy with exploration of common bile duct CLIP,HEMOLOCK [employer] [facility] Start: 04-07-2020 Total cholecystectomy with exploration of common bile duct CLIP,HEMOLOCK MED [facility] FDA Start: 04-07-2020 Total cholecystectomy with exploration of common bile duct CLIP,HEMOLOCK MED WECK FDA Start: 04-07-2020 Total cholecystectomy with exploration of common bile duct CLIP,HEMOLOCK [employer] [facility] Start: 04-07-2020 Total cholecystectomy with exploration of common bile duct CLIP,HEMOLOCK [employer] [facility] FDA Start: 04-07-2020 Total cholecystectomy with exploration of common bile duct CLIP,HEMOLOCK [employer] [facility] FDA Start: 04-07-2020 Total cholecystectomy with exploration of common bile duct CLIP,HEMOLOCK [employer] [facility] FDA Start: 04-07-2020 Total cholecystectomy with exploration of common bile duct CLIP,HEMOLOCK [employer] [facility] FDA Start: 04-07-2020 Total cholecystectomy with exploration of common bile duct CLIP,HEMOLOCK [employer] [facility] FDA Start: 04-07-2020 Total cholecystectomy with exploration of common bile duct [facility] Start: 04-07-2020 Total cholecystectomy with exploration of common bile duct CLIP,[facility]MOLOCK [facility] Start: 04-07-2020 Total cholecystectomy with exploration of common bile duct CLIP,HEMOLOCK [employer] [facility] Start: 04-07-2020 Total cholecystectomy with exploration of common bile duct CLIP,HEMOLOCK [facility] Start: 04-07-2020 Total cholecystectomy with exploration of common bile duct CLIP,[facility] Start: 04-07-2020 Clinical Notes 04-16-2022 to 09-16-2022 Dominguez Perkins MD, PhD - 09/16/2022 8:30 AM RT Noble(R) - 08/20/2022 4:40 PM Santo Perkins MD, PhD - 07/15/2022 10:30 AM Axel Alfaro PA-C - 06/16/2022 9:56 AM EST Note Date & Type Note Facility 09-16-2022 Note HNO ID: [id number] Author: Dominguez Perkins MD, PhD Service: ? Author Type: Physician Type: Progress Notes Filed: 09/16/2022 8:50 AM Note Text: [facility] Follow Up / Established Virtual Visit I received consent from the patient to perform the visit as a virtual encounter. Individuals who were included in, or assisted with the encounter were: Ivan Langford Dominguez Perkins MD, PhD Chief Complaint/Issues: Ivan Langford is a 52 year old male seen in the [facility] for: Right leg tingling Right tibial nerve tumor Initial HPI: The patient presents with complaints of right leg tingling. This began in September 2021 as intermittent right leg tingling on the lateral aspect of the right leg to the ankle. He describes this as pins and needles, not pain. Later the symptoms progressed into the top of the knee cap and then into the back of the thigh. He feels his symptoms have worsened. He now also has right groin and testicular pain. He notes his symptoms are best when he first wakes up and worsen throughout the day. He feels symptoms are worse with sitting. He does have some lower back pain only while sitting for long periods. He has complaints of minor weakness throughout the right leg. 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 HPI/Interval History: The patient reports his tingling around the right knee have improved since his last visit. He has been in the hospital for his 's cancer treatments. His symptoms are much less prominent. General Examination: General: Awake, alert, interactive, no acute distress, good nutritional status, normal development, well-kept Neurological Exam Mental Status Alert, fully oriented, attentive, with normal cognition, memory, speech and affect. Cranial Nerves Extraocular movements normal. No nystagmus, no ptosis, and pupils equal. Face symmetrical. Tongue normal. Motor Examination and Coordination Distance Motor Examination Arms: Well-coordinated symmetrical strong antigravity movements of both arms. Raises arms well above head. Manipulates phone and small objects well. No drift. Rapid alternating movements are symmetrical and normal. Sensation Not examined Gait Not examined Lab and Test Review: EMG/NCS 03/22/2022: Mononeuropathy of the right peroneal nerve. CT pelvis and CT right femur 04/16/2022: No evidence of fiber discontinuity of the included right sciatic nerve. There is grade 1 anterolisthesis of L 4 and L5 with bilateral L5 pars defect MRI right knee 04/16/22: No evidence of fiber discontinuity of the visualized sciatic nerve. A 0.7 cm ovoid mildly enhancing lesion of the sciatic nerve at the level of the proximal tibial metaphysis as a differential diagnosis of a schwannoma, neurofibroma or other nerve sheath tumors. Tricompartmental osteoarthritis. Findings favoring interested stents degeneration of the posterior horn body junction of the medial meniscus, not meeting criteria for meniscal tear MRI L-spine 08/20/22 Chronic bilateral L5 pars defects with grade 1 anterolisthesis, contributing to foraminal narrowing at L5-S1. Otherwise, low lumbar spondylosis without severe spinal canal stenosis. 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 We reviewed the images in detail. His symptoms have improved and are less prominent now. I recommended stretches and core strengthening. We discussed if his symptoms worsen, he can do formalized PT and consider medications which he would like to avoid if possible. We will plan for an updated MRI knee to evaluate the tibial nerve schwannoma and see him virtually at that time to review the images. He may contact us if any concerns arise prior. Encounter Diagnosis ICD-10-CM 1. Spondylolisthesis of lumbosacral region M43.17 Return for Follow up virtually after MRI's. Data Review Objective Current Outpatient Medications Medication Sig hydrOXYzine HCl (ATARAX) 25 mg tablet Take 1 tablet by mouth three times daily as needed. losartan (COZAAR) 25 mg tablet TAKE 1/2 (ONE-HALF) TO 1 (ONE) TABLET BY MOUTH AT BEDTIME Ascorbic Acid 1,000 mg tablet Take by mouth. fluticasone (FLONASE) 50 mcg/actuation nasal spray Fluticasone Propionate Active 1 SPRAY NASAL DAILY March 26, 2019 12:00am loratadine 10 mg cap Take by mouth. No current facility-administered medications for this visit. There is no problem list on file for this patient. PAST MEDICAL HISTORY Diagn (more content not included)... [facility] 09-16-2022 History of Present illness Narrative Images from the original note were not included. [facility] Follow Up / Established Virtual Visit I received consent from the patient to perform the visit as a virtual encounter. Individuals who were included in, or assisted with the encounter were: Ivan Gomez Cindysherry Dominguez Perkins MD, PhD Chief Complaint/Issues: Ivan Langford is a 52 year old male seen in the [facility] for: Right leg tingling Right tibial nerve tumor Initial HPI: The patient presents with complaints of right leg tingling. This began in September 2021 as intermittent right leg tingling on the lateral aspect of the right leg to the ankle. He describes this as pins and needles, not pain. Later the symptoms progressed into the top of the knee cap and then into the back of the thigh. He feels his symptoms have worsened. He now also has right groin and testicular pain. He notes his symptoms are best when he first wakes up and worsen throughout the day. He feels symptoms are worse with sitting. He does have some lower back pain only while sitting for long periods. He has complaints of minor weakness throughout the right leg. 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 HPI/Interval History: The patient reports his tingling around the right knee have improved since his last visit. He has been in the hospital for his 's cancer treatments. His symptoms are much less prominent. General Examination: General: Awake, alert, interactive, no acute distress, good nutritional status, normal development, well-kept Neurological Exam Mental Status Alert, fully oriented, attentive, with normal cognition, memory, speech and affect. Cranial Nerves Extraocular movements normal. No nystagmus, no ptosis, and pupils equal. Face symmetrical. Tongue normal. Motor Examination and Coordination Distance Motor Examination Arms: Well-coordinated symmetrical strong antigravity movements of both arms. Raises arms well above head. Manipulates phone and small objects well. No drift. Rapid alternating movements are symmetrical and normal. Sensation Not examined Gait Not examined Lab and Test Review: EMG/NCS 03/22/2022: Mononeuropathy of the right peroneal nerve. CT pelvis and CT right femur 04/16/2022: No evidence of fiber discontinuity of the included right sciatic nerve. There is grade 1 anterolisthesis of L 4 and L5 with bilateral L5 pars defect MRI right knee 04/16/22: No evidence of fiber discontinuity of the visualized sciatic nerve. A 0.7 cm ovoid mildly enhancing lesion of the sciatic nerve at the level of the proximal tibial metaphysis as a differential diagnosis of a schwannoma, neurofibroma or other nerve sheath tumors. Tricompartmental osteoarthritis. Findings favoring interested stents degeneration of the posterior horn body junction of the medial meniscus, not meeting criteria for meniscal tear MRI L-spine 08/20/22 Chronic bilateral L5 pars defects with grade 1 anterolisthesis, contributing to foraminal narrowing at L5-S1. Otherwise, low lumbar spondylosis without severe spinal canal stenosis. 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 We reviewed the images in detail. His symptoms have improved and are less prominent now. I recommended stretches and core strengthening. We discussed if his symptoms worsen, he can do formalized PT and consider medications which he would like to avoid if possible. We will plan for an updated MRI knee to evaluate the tibial nerve schwannoma and see him virtually at that time to review the images. He may contact us if any concerns arise prior. Encounter Diagnosis ICD-10-CM 1. Spondylolisthesis of lumbosacral region M43.17 Return for Follow up virtually after MRI's. Data Review Objective Current Outpatient Medications Medication Sig hydrOXYzine HCl (ATARAX) 25 mg tablet Take 1 tablet by mouth three times daily as needed. losartan (COZAAR) 25 mg tablet TAKE 1/2 (ONE-HALF) TO 1 (ONE) TABLET BY MOUTH AT BEDTIME Ascorbic Acid 1,000 mg tablet Take by mouth. fluticasone (FLONASE) 50 mcg/actuation nasal spray Fluticasone Propionate Active 1 SPRAY NASAL DAILY March 26, 2019 12:00am loratadine 10 mg cap Take by mouth. No current facility-administered medications for this visit. There is no problem list on file for this patient. PAST MEDICAL HISTORY Diagnosis Date Hypertension History reviewed. No pertinent surgical history. Social History Tobacco Use Smoking status: Never Smokeless tobacco: Never Substance Use Topics Alcohol use: Yes Comment: social History reviewed. No pertinent family history. Review of Systems Constitutional: Negative for fatigue. Skin: Negative for rash. HENT: Negative for trouble swallowing. Musculoskeletal: Negative for back pain. Eyes: Negative for visual disturbance. Respiratory: Negative for cough. Cardiovascular: Negative for chest pain. Gastrointestinal: Negative for abdominal pain. Endocrine: Negative for diabetic symptoms. I spent a total of 30 minutes on the date of the service which included preparing to see the patient, [id number] patient care, completing clinical documentation, obtaining and/or reviewing separately obtained history, performing a medically appropriate examination, and counseling and educating the patient/family/caregiver. Dominguez Perkins MD, PhD Peripheral Nerve Neurosurgeon Denitrator Operator, Neurosurgery [facility] [address] [place] [address] documented in this encounter [facility] 08-26-2022 Note HNO ID: [id number] Author: RT Radha(R) Service: Radiology Author Type: Technologist Type: Progress Notes Filed: 08/26/2022 12:15 PM Note Text: Radiology Service Progress Note PATIENT NAME: Ivan Langford DATE OF SERVICE: August 26, 2022 TIME: 12:15 PM PATIENT IDENTITY VERIFICATION COMPLETED USING TWO (2) IDENTIFIERS: Name and Date of confirmed by patient verbally. FALL SCREENING: Has the patient had 2 falls in the last year or 1 fall with injury or currently using an Ambulatory Assistive Device (Walker, Cane, Wheelchair, Crutches, etc.)? Emergency Room Patient: Screened in ED PATIENT GENDER DATA: Male PATIENT RELEVANT IMPLANT DATA REVIEWED: Not Applicable RADIOLOGY DEPARTMENT: General X-ray: Exam(s) Completed: Chest X-Ray PERIPHERAL IV DATA: Not applicable SIGNED BY: RT Radha(Samuel) August 26, 2022 12:15 PM [facility] 08-20-2022 Note HNO ID: [id number] Author: ERESE Cummings) Service: Radiology Author Type: Technologist Type: Progress Notes Filed: 08/20/2022 4:55 PM Note Text: Radiology Service Progress Note PATIENT NAME: Ivan Langford DATE OF SERVICE: August 20, 2022 TIME: 4:55 PM PATIENT IDENTITY VERIFICATION COMPLETED USING TWO (2) IDENTIFIERS: Name and Date of confirmed by patient verbally. FALL SCREENING: Has the patient had 2 falls in the last year or 1 fall with injury or currently using an Ambulatory Assistive Device (Walker, Cane, Wheelchair, Crutches, etc.)? No PATIENT GENDER DATA: Male PATIENT RELEVANT IMPLANT DATA REVIEWED: Yes RADIOLOGY DEPARTMENT: MR; Exam(s) Completed: Spine: Lumbar spine PERIPHERAL IV DATA: Not applicable SIGNED BY: RT Emiliano(Samuel) August 20, 2022 4:55 PM [facility] 08-20-2022 History of Present illness Narrative Radiology Service Progress Note PATIENT NAME: Ivan Langford DATE OF SERVICE: August 20, 2022 TIME: 4:55 PM PATIENT IDENTITY VERIFICATION COMPLETED USING TWO (2) IDENTIFIERS: Name and Date of confirmed by patient verbally. FALL SCREENING: Has the patient had 2 falls in the last year or 1 fall with injury or currently using an Ambulatory Assistive Device (Walker, Cane, Wheelchair, Crutches, etc.)? No PATIENT GENDER DATA: Male PATIENT RELEVANT IMPLANT DATA REVIEWED: Yes RADIOLOGY DEPARTMENT: MR; Exam(s) Completed: Spine: Lumbar spine PERIPHERAL IV DATA: Not applicable SIGNED BY: RT Emiliano(Samuel) August 20, 2022 4:55 PM documented in this encounter [facility] 07-15-2022 Note HNO ID: [id number] Author: Dominguez Perkins MD, PhD Service: ? Author Type: Physician Type: Progress Notes Filed: 07/15/2022 4:38 PM Note Text: [facility] New Patient Evaluation Consulting Provider: No referring provider defined for this encounter. Individuals who were included in, or assisted with the encounter were: Ivan Langford Dominguez Perkins MD, PhD Chief Complaint/Issues: Ivan Langford is a 51 year old male seen in the [facility] for: Right leg tingling Right sciatic nerve tumor HPI: The patient presents with complaints of right leg tingling. This began in September 2021 as intermittent right leg tingling on the lateral aspect of the right leg to the ankle. He describes this as pins and needles, not pain. Later the symptoms progressed into the top of the knee cap and then into the back of the thigh. He feels his symptoms have worsened. He now also has right groin and testicular pain. He notes his symptoms are best when he first wakes up and worsen throughout the day. He feels symptoms are worse with sitting. He does have some lower back pain only while sitting for long periods. He has complaints of minor weakness throughout the right leg. 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 General Examination: BP 152/80 Pulse 63 Resp 14 Ht 177.8 cm (5' 10) Wt 113.9 kg (251 lb) SpO2 97% BMI 36.01 kg/m? General: Awake, alert, interactive, no acute distress, good nutritional status, normal development, well-kept Neurological Exam Mental Status Alert, fully oriented, attentive, with normal cognition, memory, speech and affect. Cranial Nerves Visual flores intact. Fundi with normal discs and vasculature. Pupils reactive. Extraocular movements conjugate and full. No ptosis. No nystagmus. Facial sensation intact. Face symmetric and strong. Palate and tongue normal. XI normal. Motor Examination and Coordination Neuromuscular Examination Extremity Muscles Lower Extremity Right Left Hip flexion 5 5 Knee flexion 5 5 Knee extension 5 5 Ankle plantarflexion 5 5 Ankle dorsiflexion 5 5 Sensation Intact to light touch in the tibial, peroneal, saphenous, and sural nerve distributions Gait Casual gait normal. Lab and Test Review: EMG/NCS 03/22/2022: Mononeuropathy of the right peroneal nerve. CT pelvis and CT right femur 04/16/2022: No evidence of fiber discontinuity of the included right sciatic nerve. There is grade 1 anterolisthesis of L 4 and L5 with bilateral L5 pars defect MRI right knee 04/16/22: No evidence of fiber discontinuity of the visualized sciatic nerve. A 0.7 cm ovoid mildly enhancing lesion of the sciatic nerve at the level of the proximal tibial metaphysis as a differential diagnosis of a schwannoma, neurofibroma or other nerve sheath tumors. Tricompartmental osteoarthritis. 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 I have ordered a MRI knee with contrast to evaluate for any evidence of growth in 6 months. The patient does have a known L4-5 spondylolisthesis due to bilateral pars defects. I suspect his tingling may be coming from this source. I have recommended he obtained a MRI L-spine along with flexion-extension films for evaluation. I will plan to see the patient back virtually to review the imaging of his spine. Encounter Diagnosis ICD-10-CM 1. Spinal stenosis of lumbar region with neurogenic claudication M48.062 MRI LUMBAR SPINE WO IVCON 2. Localized swelling, mass, or lump of right lower extremity R22.41 MRI KNEE WO/W IVCON RT Return for Follow up virtually after MRI L-spine. Data Review Objective Current Outpatient Medications Medication Sig losartan (COZAAR) 25 mg tablet TAKE 1/2 (ONE-HALF) TO 1 (ONE) TABLET BY MOUTH AT BEDTIME Ascorbic Acid 1,000 mg tablet Take by mouth. fluticasone (FLONASE) 50 mcg/actuation nasal spray Fluticasone Propionate Active 1 SPRAY NASAL DAILY March 26, 2019 12:00am loratadine 10 mg cap Take by mouth. iv contrast (will be provided with radiology test) MRI knee RT Inject, intravenously, once for 1 dose. No IV access, insert saline lock prior to the beginning of sedation, infusion, injection of imaging exam. Discontinue saline lock post exam. If Pt. has a central line or IVAD, may access for administration accor (more content not included)... [facility] 07-15-2022 History of Present illness Narrative [facility] New Patient Evaluation Consulting Provider: No referring provider defined for this encounter. Individuals who were included in, or assisted with the encounter were: Ivan Perkins MD, PhD Chief Complaint/Issues: Ivan Langford is a 51 year old male seen in the [facility] for: Right leg tingling Right sciatic nerve tumor HPI: The patient presents with complaints of right leg tingling. This began in September 2021 as intermittent right leg tingling on the lateral aspect of the right leg to the ankle. He describes this as pins and needles, not pain. Later the symptoms progressed into the top of the knee cap and then into the back of the thigh. He feels his symptoms have worsened. He now also has right groin and testicular pain. He notes his symptoms are best when he first wakes up and worsen throughout the day. He feels symptoms are worse with sitting. He does have some lower back pain only while sitting for long periods. He has complaints of minor weakness throughout the right leg. 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 General Examination: BP 152/80 Pulse 63 Resp 14 Ht 177.8 cm (5' 10) Wt 113.9 kg (251 lb) SpO2 97% BMI 36.01 kg/m General: Awake, alert, interactive, no acute distress, good nutritional status, normal development, well-kept Neurological Exam Mental Status Alert, fully oriented, attentive, with normal cognition, memory, speech and affect. Cranial Nerves Visual flores intact. Fundi with normal discs and vasculature. Pupils reactive. Extraocular movements conjugate and full. No ptosis. No nystagmus. Facial sensation intact. Face symmetric and strong. Palate and tongue normal. XI normal. Motor Examination and Coordination Neuromuscular Examination Extremity Muscles Lower Extremity Right Left Hip flexion 5 5 Knee flexion 5 5 Knee extension 5 5 Ankle plantarflexion 5 5 Ankle dorsiflexion 5 5 Sensation Intact to light touch in the tibial, peroneal, saphenous, and sural nerve distributions Gait Casual gait normal. Lab and Test Review: EMG/NCS 03/22/2022: Mononeuropathy of the right peroneal nerve. CT pelvis and CT right femur 04/16/2022: No evidence of fiber discontinuity of the included right sciatic nerve. There is grade 1 anterolisthesis of L 4 and L5 with bilateral L5 pars defect MRI right knee 04/16/22: No evidence of fiber discontinuity of the visualized sciatic nerve. A 0.7 cm ovoid mildly enhancing lesion of the sciatic nerve at the level of the proximal tibial metaphysis as a differential diagnosis of a schwannoma, neurofibroma or other nerve sheath tumors. Tricompartmental osteoarthritis. 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 I have ordered a MRI knee with contrast to evaluate for any evidence of growth in 6 months. The patient does have a known L4-5 spondylolisthesis due to bilateral pars defects. I suspect his tingling may be coming from this source. I have recommended he obtained a MRI L-spine along with flexion-extension films for evaluation. I will plan to see the patient back virtually to review the imaging of his spine. Encounter Diagnosis ICD-10-CM 1. Spinal stenosis of lumbar region with neurogenic claudication M48.062 MRI LUMBAR SPINE WO IVCON 2. Localized swelling, mass, or lump of right lower extremity R22.41 MRI KNEE WO/W IVCON RT Return for Follow up virtually after MRI L-spine. Data Review Objective Current Outpatient Medications Medication Sig losartan (COZAAR) 25 mg tablet TAKE 1/2 (ONE-HALF) TO 1 (ONE) TABLET BY MOUTH AT BEDTIME Ascorbic Acid 1,000 mg tablet Take by mouth. fluticasone (FLONASE) 50 mcg/actuation nasal spray Fluticasone Propionate Active 1 SPRAY NASAL DAILY March 26, 2019 12:00am loratadine 10 mg cap Take by mouth. iv contrast (will be provided with radiology test) MRI knee RT Inject, intravenously, once for 1 dose. No IV access, insert saline lock prior to the beginning of sedation, infusion, injection of imaging exam. Discontinue saline lock post exam. If Pt. has a central line or IVAD, may access for administration according to line specific nursing protocol. Once exam is complete flush line and de-access according to line specific nursing protocol in the MR contrast administration guidelines link. No current facility-administered medications for this visit. There is no problem list on file for this patient. No past medical history on file. No past surgical history on file. Social History Tobacco Use Smoking status: Never Smokeless tobacco: Never Substance Use Topics Alcohol use: Yes Comment: social No family history on file. Review of Systems Constitutional: Negative for fever. Skin: Negative for rash. HENT: Negative for trouble swallowing. Musculoskeletal: Positive for back pain, muscle weakness and neck stiffness. Eyes: Negative for visual disturbance. Respiratory: Negative for cough. Cardiovascular: Negative for chest pain. Gastrointestinal: Negative for abdominal pain. Endocrine: Negative for diabetic symptoms. I spent a total of 30 minutes on the date of the service which included preparing to see the patient, [id number] patient care, completing clinical documentation, obtaining and/or reviewing separately obtained history, performing a medically appropriate examination, counseling and educating the patient/family/caregiver, and ordering medications, tests, or procedures. Dominguez Perkins MD, PhD Peripheral Nerve Neurosurgeon Associate Staff, Neurosurgery [facility] [address] [place] [address] documented in this encounter [facility] 06-16-2022 Note HNO ID: [id number] Author: Lelo Alfaro PA-C Service: ? Author Type: Physician Professor Of Industrial Technology Type: Progress Notes Filed: 06/16/2022 3:06 PM Note Text: Per Triage: Ivan Langford is a 51 year old male that requests evaluation of sciatic nerve. Per review, they have symptoms of pins and needles right groin and down the right leg to the ankle. Mild pain in right buttock. Weakness right leg Request Dr Perkins Referring provider: Dr. Verena David's Patient out of state: no 2nd opinion: no Prior spine surgery: no CMT: Chiro Oral steroids IBU Studies (Reports unless indicated) EMG report 03/22/2022: Mononeuropathy of the right peroneal nerve. CT pelvis and CT right femur report 04/16/2022: No evidence of fiber discontinuity of the included right sciatic nerve. There is grade 1 anterolisthesis of L 4 and L5 with bilateral L5 pars defect MRI right knee report 04/16/22: No evidence of fiber discontinuity of the visualized sciatic nerve. A 0.7 cm ovoid mildly enhancing lesion of the sciatic nerve at the level of the proximal tibial metaphysis as a differential diagnosis of a schwannoma, neurofibroma or other nerve sheath tumors. Tricompartmental osteoarthritis. Findings favoring interested stents degeneration of the posterior horn body junction of the medial meniscus, not meeting criteria for meniscal tear Disposition: Based on triage, recommend patient be scheduled with surgeon Dr Dominguez Perkins for lesion on the sciatic nerve at right knee area . If patient would like sooner appointment, is it okay to offer appointment with spine surgical BARBARA No (If patient is okay to see first available surgeon, please specify dx to aid in appropriate scheduling, such as ?cervical degenerative disease,? ?scoliosis?) If VV, please advise pt to send or upload relevant outside images prior to appt so they will be available for review during the appt If office visit, please advise pt to hand carry relevant images on CD to the appt so they can be reviewed during the appt Lelo Alfaro PA-C [facility] 06-16-2022 Note HNO ID: [id number] Author: Kristina Roberts, Research Coordinator Service: ? 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 No If answer is YES please schedule directly with surgeon, triage does not need to be completed. Is this a self-referral No If not, who is the Referring Provider Dr. 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 Is this a 2nd opinion? No Were you offered surgery? No MRI/CT/myelogram within 12 months? Yes If NO, please refer to medical spine or PCP to complete above imaging, triage does not need to be completed If YES,? please ask for the name/address of the facility where the MRI/CT/myelogram was completed: [facility] [id number] [place] [address] MRI/CT/myelogram viewable in Epic: No If not, please provide [phone] to fax in imaging reports for review. Also, please inform patient to hand carry imaging disc to appointment. XR (spine) within 12 months: No If YES,? please ask for the name/address of the facility where the XR was completed: Dr. Perkins's patients: Have you had previous EMG/Nerve Conduction Study, Ultrasound, or MRI for these same symptoms? If YES,? please ask for the name/address of the facility where they were completed: Requested provider (First and Last name): any Are you interested in a virtual visit if offered? No 1. Where are you having symptoms related to this visit? 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 No pain, but has pins AND needles starting at the groin region down R Leg to ankle Back pain No mild pain in R buttock Leg pain no Arm pain No Neck pain No 2. Are you having any of the following symptoms: Difficulty walking Yes sometimes Numbness Yes R knee, R blanco Weakness Yes R leg Trouble using your hands? No 3. Have you had any injections or physical therapy in the last 12 months? No If YES then please ask for the name/address of the facility where the injections and/or physical therapy was completed Have you tried any other kinds of non-surgical treatments in the last 12 months? (For example: NSAIDS, muscle relaxants, analgesics, oral steroids, Chiropractor, Acupuncture): Chiropractor, oral steroids, Ibuprofen 4. Are you currently taking daily prescribed narcotic medications for your current symptoms (For example Oxycodone, Hydrocodone, Tramadol, Morphine, Other)? No 5. Have you had previous spinal surgery for this same symptoms? No If YES? please ask for the name of facility/address of where the surgery was completed: Additional Comments [phone] [facility] 06-16-2022 History of Present illness Narrative Per Triage: Ivan Langford is a 51 year old male that requests evaluation of sciatic nerve. Per review, they have symptoms of pins and needles right groin and down the right leg to the ankle. Mild pain in right buttock. Weakness right leg Request Dr Perkins Referring provider: Dr. Verena David's Patient out of state: no 2nd opinion: no Prior spine surgery: no CMT: Chiro Oral steroids IBU Studies (Reports unless indicated) EMG report 03/22/2022: Mononeuropathy of the right peroneal nerve. CT pelvis and CT right femur report 04/16/2022: No evidence of fiber discontinuity of the included right sciatic nerve. There is grade 1 anterolisthesis of L 4 and L5 with bilateral L5 pars defect MRI right knee report 04/16/22: No evidence of fiber discontinuity of the visualized sciatic nerve. A 0.7 cm ovoid mildly enhancing lesion of the sciatic nerve at the level of the proximal tibial metaphysis as a differential diagnosis of a schwannoma, neurofibroma or other nerve sheath tumors. Tricompartmental osteoarthritis. Findings favoring interested stents degeneration of the posterior horn body junction of the medial meniscus, not meeting criteria for meniscal tear Disposition: Based on triage, recommend patient be scheduled with surgeon Dr Dominguez Perkins for lesion on the sciatic nerve at right knee area . 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 No If answer is YES please schedule directly with surgeon, triage does not need to be completed. Is this a self-referral No If not, who is the Referring Provider Dr. 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 Is this a 2nd opinion? No Were you offered surgery? No MRI/CT/myelogram within 12 months? Yes If NO, please refer to medical spine or PCP to complete above imaging, triage does not need to be completed If YES, please ask for the name/address of the facility where the MRI/CT/myelogram was completed: [facility] [id number] [place] [address] MRI/CT/myelogram viewable in Epic: No If not, please provide [phone] to fax in imaging reports for review. Also, please inform patient to hand carry imaging disc to appointment. XR (spine) within 12 months: No If YES, please ask for the name/address of the facility where the XR was completed: Dr. Perkins's patients: Have you had previous EMG/Nerve Conduction Study, Ultrasound, or MRI for these same symptoms? If YES, please ask for the name/address of the facility where they were completed: Requested provider (First and Last name): any Are you interested in a virtual visit if offered? No 1. Where are you having symptoms related to this visit? 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 No pain, but has pins & needles starting at the groin region down R Leg to ankle Back pain No mild pain in R buttock Leg pain no Arm pain No Neck pain No 2. Are you having any of the following symptoms: Difficulty walking Yes sometimes Numbness Yes R knee, R blanco Weakness Yes R leg Trouble using your hands? No 3. Have you had any injections or physical therapy in the last 12 months? No If YES then please ask for the name/address of the facility where the injections and/or physical therapy was completed Have you tried any other kinds of non-surgical treatments in the last 12 months? (For example: NSAIDS, muscle relaxants, analgesics, oral steroids, Chiropractor, Acupuncture): Chiropractor, oral steroids, Ibuprofen 4. Are you currently taking daily prescribed narcotic medications for your current symptoms (For example Oxycodone, Hydrocodone, Tramadol, Morphine, Other)? No 5. Have you had previous spinal surgery for this same symptoms? No If YES please ask for the name of facility/address of where the surgery was completed: Additional Comments [phone] documented in this encounter [facility] 04-16-2022 Note ORIGINAL EXAMINATION: CT OF THE PELVIS WITH CONTRAST; CT OF THE RIGHT FEMUR WITH CONTRAST 04/16/2022 9:48 am TECHNIQUE: CT of the pelvis was performed with the administration of intravenous contrast. Multiplanar reformatted images are provided for review. Automated exposure control, iterative reconstruction, and/or weight based adjustment of the mA/kV was utilized to reduce the radiation dose to as low as reasonably achievable.; CT of the right femur was performed with the administration of intravenous contrast. Multiplanar reformatted images are provided for review. Automated exposure control, iterative reconstruction, and/or weight based adjustment of the mA/kV was utilized to reduce the radiation dose to as low as reasonably achievable. COMPARISON: MRI knee 04/16/2022. HISTORY: ORDERING SYSTEM PROVIDED HISTORY: Reason for Exam: Injury of sciatic nerve at hip and thigh level, right leg, initial encounter. FINDINGS: Evaluation of the right sciatic nerve to the level of the knee demonstrates no appreciable fiber discontinuity. The visualized portions of the contralateral left sciatic nerve are unremarkable. The visualized portions of the right common peroneal nerve also appear intact. Visible muscles exhibit normal bulk. There is no evidence of muscle atrophy. Tendons and ligaments are poorly evaluated on this examination. The included intra-abdominal/pelvic contents exhibit no acute abnormalities. No visible pathologically enlarged lymph nodes. Likely vasectomy changes. No acute skeletal abnormality is demonstrated. No visible aggressive osseous lesions. There are mild bilateral hip degenerative changes, right greater than left with joint space narrowing, marginal osteophytes, and subchondral cysts. Mild degenerative changes are noted of the pubic symphysis as well as sacroiliac joints. No evidence of sacroiliac joint osseous erosion or ankylosis. Lower lumbar facet arthrosis noted. Grade 1 anterolisthesis of L4 on L5. Bilateral L5 pars defects noted. Mild degenerative changes of the knee. IMPRESSION: 1. No evidence of fiber discontinuity of the included right sciatic nerve. Unremarkable left sciatic nerve. Unremarkable visible right common peroneal nerve. Interpreted by: Oliverio Mccullough DO Preliminary Report By: Oliverio Mccullough DO Electronically signed By Oliverio Mccullough DO Dictated Date: 04/16/2022 12:33:45 PM Prelim Date: 04/16/2022 12:43:46 PM Sign Date: 04/16/2022 12:43:46 PM Ordering Provider: [facility] 04-16-2022 Note ORIGINAL EXAMINATION: CT OF THE PELVIS WITH CONTRAST; CT OF THE RIGHT FEMUR WITH CONTRAST 04/16/2022 9:48 am TECHNIQUE: CT of the pelvis was performed with the administration of intravenous contrast. Multiplanar reformatted images are provided for review. Automated exposure control, iterative reconstruction, and/or weight based adjustment of the mA/kV was utilized to reduce the radiation dose to as low as reasonably achievable.; CT of the right femur was performed with the administration of intravenous contrast. Multiplanar reformatted images are provided for review. Automated exposure control, iterative reconstruction, and/or weight based adjustment of the mA/kV was utilized to reduce the radiation dose to as low as reasonably achievable. COMPARISON: MRI knee 04/16/2022. HISTORY: ORDERING SYSTEM PROVIDED HISTORY: Reason for Exam: Injury of sciatic nerve at hip and thigh level, right leg, initial encounter. FINDINGS: Evaluation of the right sciatic nerve to the level of the knee demonstrates no appreciable fiber discontinuity. The visualized portions of the contralateral left sciatic nerve are unremarkable. The visualized portions of the right common peroneal nerve also appear intact. Visible muscles exhibit normal bulk. There is no evidence of muscle atrophy. Tendons and ligaments are poorly evaluated on this examination. The included intra-abdominal/pelvic contents exhibit no acute abnormalities. No visible pathologically enlarged lymph nodes. Likely vasectomy changes. No acute skeletal abnormality is demonstrated. No visible aggressive osseous lesions. There are mild bilateral hip degenerative changes, right greater than left with joint space narrowing, marginal osteophytes, and subchondral cysts. Mild degenerative changes are noted of the pubic symphysis as well as sacroiliac joints. No evidence of sacroiliac joint osseous erosion or ankylosis. Lower lumbar facet arthrosis noted. Grade 1 anterolisthesis of L4 on L5. Bilateral L5 pars defects noted. Mild degenerative changes of the knee. IMPRESSION: 1. No evidence of fiber discontinuity of the included right sciatic nerve. Unremarkable left sciatic nerve. Unremarkable visible right common peroneal nerve. Interpreted by: Oliverio Mccullough DO Preliminary Report By: Oliverio Mccullough DO Electronically signed By Oliverio Mccullough DO Dictated Date: 04/16/2022 12:33:45 PM Prelim Date: 04/16/2022 12:43:46 PM Sign Date: 04/16/2022 12:43:46 PM Ordering Provider: BERTHA [facility] 04-16-2022 Note ORIGINAL EXAMINATION: MRI OF THE RIGHT KNEE WITHOUT AND WITH CONTRAST04/16/2022 9:52 am TECHNIQUE: Multiplanar multisequence MRI of the right knee was performed without and with the administration of intravenous contrast. COMPARISON: None HISTORY: ORDERING SYSTEM PROVIDED HISTORY: Reason for Exam: Injury of sciatic nerve at hip and thigh level, right leg, initial encounter FINDINGS: MUSCLES, TENDONS, AND LIGAMENTS: The anterior cruciate ligament is intact. The posterior cruciate ligament is intact. The medial collateral ligament is intact. The lateral collateral ligament complex is intact. The popliteus and biceps femoris tendons, iliotibial band, and extensor mechanism are intact. MENISCI: Irregular curvilinear signal abnormality involving the substance of the posterior horn-body junction of medial meniscus does not meet criteria for tear and favors intrasubstance degeneration. The lateral meniscus is intact. OSSEOUS STRUCTURES AND JOINTS: No fracture or dislocation is evident. No visualized marrow replacing osseous lesions. No abnormal osseous enhancement. Low-grade articular cartilage thinning is present of the medial femorotibial compartment. There is overall low grade articular cartilage thinning of the lateral femorotibial compartment with scattered foci of intermediate to high-grade fissuring involving the central weight-bearing lateral femoral condyle with mild associated reactive subchondral marrow edema. Low-grade articular cartilage thinning and fibrillation is present of the lateral patellar facet. There is intermediate to high-grade articular cartilage thinning of the median ridge and medial facet. No significant joint effusion is evident. SOFT TISSUES: Trace volume Daigle's cyst. Involving the distal aspect of the sciatic nerve at the level of the proximal tibial metaphysis, there is an ovoid mildly enhancing lesion which measures 0.3 x 0.4 x 0.7 cm (AP, transverse, craniocaudal dimension), best seen on axial image 9/45 and sagittal image 16/30 respectively. The included sciatic nerve is otherwise normal in signal and morphology. No definite discontinuity. The included common peroneal nerve is normal in appearance. Nonspecific prepatellar/proximal pretibial subcutaneous edema. A multilobulated ganglion is noted deep to the myotendinous junction of the pes anserine tendons at the level of the distal femoral metaphysis medially. IMPRESSION: 1. No evidence of fiber discontinuity of the visualized sciatic nerve. A 0.7 cm ovoid mildly enhancing lesion of the sciatic nerve at the level of the proximal tibial metaphysis as a differential diagnosis of schwannoma, neurofibroma, or other nerve sheath tumors. 2. Tricompartmental osteoarthrosis. 3. Findings favoring intrasubstance degeneration of posterior horn-body junction of medial meniscus, not meeting criteria for meniscal tear. 4. Additional findings, as above. Interpreted by: Oliverio Mccullough DO Preliminary Report By: Oliverio Mccullough DO Electronically signed By Oliverio Mccullough DO Dictated Date: 04/16/2022 12:21:44 PM Prelim Date: 04/16/2022 12:33:32 PM Sign Date: 04/16/2022 12:33:32 PM Ordering Provider: [facility] 04-16-2022 Note ORIGINAL EXAMINATION: CT OF THE PELVIS WITH CONTRAST; CT OF THE RIGHT FEMUR WITH CONTRAST 04/16/2022 9:48 am TECHNIQUE: CT of the pelvis was performed with the administration of intravenous contrast. Multiplanar reformatted images are provided for review. Automated exposure control, iterative reconstruction, and/or weight based adjustment of the mA/kV was utilized to reduce the radiation dose to as low as reasonably achievable.; CT of the right femur was performed with the administration of intravenous contrast. Multiplanar reformatted images are provided for review. Automated exposure control, iterative reconstruction, and/or weight based adjustment of the mA/kV was utilized to reduce the radiation dose to as low as reasonably achievable. COMPARISON: MRI knee 04/16/2022. HISTORY: ORDERING SYSTEM PROVIDED HISTORY: Reason for Exam: Injury of sciatic nerve at hip and thigh level, right leg, initial encounter. FINDINGS: Evaluation of the right sciatic nerve to the level of the knee demonstrates no appreciable fiber discontinuity. The visualized portions of the contralateral left sciatic nerve are unremarkable. The visualized portions of the right common peroneal nerve also appear intact. Visible muscles exhibit normal bulk. There is no evidence of muscle atrophy. Tendons and ligaments are poorly evaluated on this examination. The included intra-abdominal/pelvic contents exhibit no acute abnormalities. No visible pathologically enlarged lymph nodes. Likely vasectomy changes. No acute skeletal abnormality is demonstrated. No visible aggressive osseous lesions. There are mild bilateral hip degenerative changes, right greater than left with joint space narrowing, marginal osteophytes, and subchondral cysts. Mild degenerative changes are noted of the pubic symphysis as well as sacroiliac joints. No evidence of sacroiliac joint osseous erosion or ankylosis. Lower lumbar facet arthrosis noted. Grade 1 anterolisthesis of L4 on L5. Bilateral L5 pars defects noted. Mild degenerative changes of the knee. IMPRESSION: 1. No evidence of fiber discontinuity of the included right sciatic nerve. Unremarkable left sciatic nerve. Unremarkable visible right common peroneal nerve. Interpreted by: Oliverio Mccullough DO Preliminary Report By: Oliverio Mccullough DO Electronically signed By Oliverio Mccullough DO Dictated Date: 04/16/2022 12:33:45 PM Prelim Date: 04/16/2022 12:43:46 PM Sign Date: 04/16/2022 12:43:46 PM Ordering Provider: [facility] 04-16-2022 Note ORIGINAL EXAMINATION: MRI OF THE RIGHT KNEE WITHOUT AND WITH CONTRAST04/16/2022 9:52 am TECHNIQUE: Multiplanar multisequence MRI of the right knee was performed without and with the administration of intravenous contrast. COMPARISON: None HISTORY: ORDERING SYSTEM PROVIDED HISTORY: Reason for Exam: Injury of sciatic nerve at hip and thigh level, right leg, initial encounter FINDINGS: MUSCLES, TENDONS, AND LIGAMENTS: The anterior cruciate ligament is intact. The posterior cruciate ligament is intact. The medial collateral ligament is intact. The lateral collateral ligament complex is intact. The popliteus and biceps femoris tendons, iliotibial band, and extensor mechanism are intact. MENISCI: Irregular curvilinear signal abnormality involving the substance of the posterior horn-body junction of medial meniscus does not meet criteria for tear and favors intrasubstance degeneration. The lateral meniscus is intact. OSSEOUS STRUCTURES AND JOINTS: No fracture or dislocation is evident. No visualized marrow replacing osseous lesions. No abnormal osseous enhancement. Low-grade articular cartilage thinning is present of the medial femorotibial compartment. There is overall low grade articular cartilage thinning of the lateral femorotibial compartment with scattered foci of intermediate to high-grade fissuring involving the central weight-bearing lateral femoral condyle with mild associated reactive subchondral marrow edema. Low-grade articular cartilage thinning and fibrillation is present of the lateral patellar facet. There is intermediate to high-grade articular cartilage thinning of the median ridge and medial facet. No significant joint effusion is evident. SOFT TISSUES: Trace volume Daigle's cyst. Involving the distal aspect of the sciatic nerve at the level of the proximal tibial metaphysis, there is an ovoid mildly enhancing lesion which measures 0.3 x 0.4 x 0.7 cm (AP, transverse, craniocaudal dimension), best seen on axial image /45 and sagittal image 16/30 respectively. The included sciatic nerve is otherwise normal in signal and morphology. No definite discontinuity. The included common peroneal nerve is normal in appearance. Nonspecific prepatellar/proximal pretibial subcutaneous edema. A multilobulated ganglion is noted deep to the myotendinous junction of the pes anserine tendons at the level of the distal femoral metaphysis medially. IMPRESSION: 1. No evidence of fiber discontinuity of the visualized sciatic nerve. A 0.7 cm ovoid mildly enhancing lesion of the sciatic nerve at the level of the proximal tibial metaphysis as a differential diagnosis of schwannoma, neurofibroma, or other nerve sheath tumors. 2. Tricompartmental osteoarthrosis. 3. Findings favoring intrasubstance degeneration of posterior horn-body junction of medial meniscus, not meeting criteria for meniscal tear. 4. Additional findings, as above. Interpreted by: Oliverio Mccullough DO Preliminary Report By: Oliverio Mccullough DO Electronically signed By Oliverio Mccullough DO Dictated Date: 04/16/2022 12:21:44 PM Prelim Date: 04/16/2022 12:33:32 PM Sign Date: 04/16/2022 12:33:32 PM Ordering Provider: BERTHA BOLAÑOS [facility] 04-16-2022 Note ORIGINAL EXAMINATION: CT OF THE PELVIS WITH CONTRAST; CT OF THE RIGHT FEMUR WITH CONTRAST 04/16/2022 9:48 am TECHNIQUE: CT of the pelvis was performed with the administration of intravenous contrast. Multiplanar reformatted images are provided for review. Automated exposure control, iterative reconstruction, and/or weight based adjustment of the mA/kV was utilized to reduce the radiation dose to as low as reasonably achievable.; CT of the right femur was performed with the administration of intravenous contrast. Multiplanar reformatted images are provided for review. Automated exposure control, iterative reconstruction, and/or weight based adjustment of the mA/kV was utilized to reduce the radiation dose to as low as reasonably achievable. COMPARISON: MRI knee 04/16/2022. HISTORY: ORDERING SYSTEM PROVIDED HISTORY: Reason for Exam: Injury of sciatic nerve at hip and thigh level, right leg, initial encounter. FINDINGS: Evaluation of the right sciatic nerve to the level of the knee demonstrates no appreciable fiber discontinuity. The visualized portions of the contralateral left sciatic nerve are unremarkable. The visualized portions of the right common peroneal nerve also appear intact. Visible muscles exhibit normal bulk. There is no evidence of muscle atrophy. Tendons and ligaments are poorly evaluated on this examination. The included intra-abdominal/pelvic contents exhibit no acute abnormalities. No visible pathologically enlarged lymph nodes. Likely vasectomy changes. No acute skeletal abnormality is demonstrated. No visible aggressive osseous lesions. There are mild bilateral hip degenerative changes, right greater than left with joint space narrowing, marginal osteophytes, and subchondral cysts. Mild degenerative changes are noted of the pubic symphysis as well as sacroiliac joints. No evidence of sacroiliac joint osseous erosion or ankylosis. Lower lumbar facet arthrosis noted. Grade 1 anterolisthesis of L4 on L5. Bilateral L5 pars defects noted. Mild degenerative changes of the knee. IMPRESSION: 1. No evidence of fiber discontinuity of the included right sciatic nerve. Unremarkable left sciatic nerve. Unremarkable visible right common peroneal nerve. Interpreted by: Oliverio Mccullough DO Preliminary Report By: Oliverio Mccullough DO Electronically signed By Oliverio Mccullough DO Dictated Date: 04/16/2022 12:33:45 PM Prelim Date: 04/16/2022 12:43:46 PM Sign Date: 04/16/2022 12:43:46 PM Ordering Provider: BERTHA BOLAÑOS [facility] Evaluation + Plan note No data available for this section [facility] Evaluation note No assessment inform ation available [facility] Work Phone: Evaluation note Diagnosis Sciatic nerve lesion, right- Primary documented [facility]* Diagnosis Spinal stenosis of lumbar region with neurogenic claudication- Primary Spinal stenosis, lumbar region, with neurogenic claudication Localized swelling, mass, or lump of right lower extremity documented in this encounter [facility] note* Diagnosis Spinal stenosis of lumbar region with neurogenic claudication Spinal stenosis, lumbar region, with neurogenic claudication documented in this encounter [facility] note* Diagnosis Spondylolisthesis of lumbosacral region- Primary Acquired spondylolisthesis documented in this encounter [facility] Discharge instructions No data available for this [facility] [facility] Reason for referral (narrative)* Diagnostic Procedure Only (Routine) - Pending Review Specialty Diagnoses / Procedures Referred By Mehdi elder Referred To Contact XR IMAGING Diagnoses Spinal stenosis of lumbar region with neurogenic claudication Procedures XR LUMBAR MOTION 4V AP/LAT/ FLEX/EXT RADEX SPINE LUMBOSACRAL MINIMUM 4 VIEWS Dominguez Perkins MD, PhD [address] [place] [address] Xr Imaging Referral ID Status Reason Start Date Expiration Date Visits Requested Visits Authorized [id number] Pending Review Auto-Generat ed Referral 07/15/2022 08/14/2023 1 1 * MRI/CT (Routine) - Pending Review Specialty Diagnoses / Procedures Referred By Mehdi elder Referred To Contact MR IMAGING Diagnoses Localized swelling, mass, or lump of right lower extremity Procedures MRI KNEE WO/W IVCON RT MRI ANY JT LOWER EXTREM W/O & W/CONTRAST MATRL Dominguez Perkins MD, PhD [address] [place] [address] Mr Imaging Referral ID Status Reason Start Date Expiration Date Visits Requested Visits Authorized [id number] Pending Review Auto-Generat ed Referral 01/13/2023 08/14/2023 1 1 * MRI/CT (Routine) - Pending Review Specialty Diagnoses / Procedures Referred By Contac t Referred To Contact MR IMAGING Diagnoses Spinal stenosis of lumbar region with neurogenic claudication Procedures MRI LUMBAR SPINE WO IVCON MRI SPINAL CANAL LUMBAR W/O CONTRAST MATERIAL Dominguez Perkins MD, PhD [address] [place] [address] Mr Imaging Referral ID Status Reason Start Date Expiration Date Visits Requested Visits Authorized [id number] Pending Review Auto-Generat ed Referral 07/15/2022 08/14/2023 1 1 [facility] for referral (narrative)* Diagnostic Procedure Only (Routine) - Waiting for Response Specialty Diagnoses / Procedures Referred By Contac t Referred To Contact MR IMAGING Diagnoses Spinal stenosis of lumbar region with neurogenic claudication Procedures MRI LUMBAR SPINE WO IVCON MRI SPINAL CANAL LUMBAR W/O CONTRAST MATERIAL Dominguez Perkins MD, PhD [address] [place] [address] Mr Imaging Referral ID Status Reason Start Date Expiration Date Visits Requested Visits Authorized [id number] Waiting for Response Auto-Genera zach Referral Patient Cleared - Admin/Chair man/Directo r advise to proceed 07/15/2022 08/14/2023 1 [facility]No reason for referral information availableWOhio[facility] Work Phone: Summary Purpose Family History No Family History Records Found Relationship Condition Age at Onset Recorded Date/T ade Unknown Family History?Diabetes Unknown 2018 10:40pm Family History?Diabe chacorta, Heart Disease Unknown March 26, 2019 10:40pm Relationship Condition Age at Onset Recorded Date/T ade Unknown Family History?Diabetes Unknown 2018 9:40pm Family History?Diabe chacorta, Heart Disease Unknown March 26, 2019 9:40pm Advance Directives No Advanced Directives Records Found Advance Directive Response Recorded Date/ Time Living Will Yes February 02, 2021 7:39pm Power of Order Picker/Assembler Yes February 02 7:39pm Advance Directive Response Recorded Date/ Time Living Will Yes February 02, 2021 6:39pm Power of Order Picker/Assembler Yes February 02 6:39pm Chief Complaint and Reason for Visit Chief Complaint IMBALANCE Chief Complaint EORDERS Chief Complaint Admit Date E ORDERS January 01, 2025 6:00a m Additional Source Comments (unrecognized sect ion and content) No Status Records FoundNo Status Records FoundNo Status Records FoundNo Status Records FoundNo Status Records Found INFORMATION SOURCE (unrecogn ized section and content) DATE CREATED AUTHOR 02/14/2018 [facility] DATE CREATED AUTHOR AUTHOR'S ORGANIZ ATION 03/31/2018 [facility] DATE CREATED AUTHOR AUTHOR'S ORGANIZ ATION 04/19/2022 [facility] ([place]) DATE CREATED AUTHOR AUTHOR'S ORGANIZ ATION 10/19/2022 [facility] DATE CREATED AUTHOR AUTHOR'S ORGANIZ ATION 03/23/2025 [facility] Goals (unrecognized section and content) Goals may be documented in a n alternate sectionGoals may be documented in an alternate section No data available for this sectionGoals may be documented in an alternate sectionGoals may be documented in an alternate sectionGoals may be documented in an alternate sectionGoals may be documented in an alternate sectionGoals may be documented in an alternate section Care Team (unrecognized sect ion and content) Care Team Personnel Name: VERENA DAVID MD Member Role: Primary Care Physician Address: Address: [facility] [address] [place], [place] [address] Source Comments (unrecognize d section and content) In the event this informatio n is protected by the Federal Confidentiality of Alcohol and Drug Abuse Patient Records regulations: The Federal rules restrict any use of the information to criminally investigate or prosecute any alcohol or drug abuse patient.[facility] the event this information is protected by the Federal Confidentiality of Alcohol and Drug Abuse Patient Records regulations: The Federal rules restrict any use of the information to criminally investigate or prosecute any alcohol or drug abuse patient.[facility] the event this information is protected by the Federal Confidentiality of Alcohol and Drug Abuse Patient Records regulations: The Federal rules restrict any use of the information to criminally investigate or prosecute any alcohol or drug abuse patient.[facility] the event this information is protected by the Federal Confidentiality of Alcohol and Drug Abuse Patient Records regulations: The Federal rules restrict any use of the information to criminally investigate or prosecute any alcohol or drug abuse patient.[facility] Care Teams (unrecognized sec tion and content) Watch Train Inspector Relationship Specialty Start Date End Date Pcp, No PCP - General 02/20/22 09/07/22 Verena David MD [address] [facility] [place], [place] [id number] Referring Family Medicine 06/08/22 Watch Train Inspector Relationship Specialty Start Date End Date Pcp, No PCP - General 02/20/22 09/07/22 Verena David MD [address] [facility] [place] [address] Referring Family Medicine 06/08/22 Watch Train Inspector Relationship Specialty Start Date End Date Pcp, No PCP - General 02/20/22 09/07/22 Verena David MD [address] [facility] [place], [place] [address] Referring Family Medicine 06/08/22 Watch Train Inspector Relationship Specialty Start Date End Date Verena David MD [address] [facility] [place], [place] [id number] PCP - General Family Medicine 08/26/22 Team Status: Active Member Role Status Dates Dr. Verena David MD Family Provider Active Dr. Verena David MD Primary Care Provider Active Team Status: Inactive Member Role Status Dates Dr. Verena David MD Primary Care Provide r, Attending Provider, Referring Provider Active Team Status: Inactive Member Role Status Dates Dr. Verena David MD Primary Care Provider Active Start: January 01, 2025 End: January 01, 2025 Dr. Verena David MD Attending Provider Active St art: January 01, 2025 End: January 01, 2025 Dr. Verena David MD Referring Provider Active St art: January 01, 2025 End: January 01, 2025 Team Status: Inactive Member Role Status Dates Dr. Verena David MD Primary Care Provider Active Start: January 10, 2025 End: January 10, 2025 Jalyn Arriaga EMBROIDERER, EMBROIDERER-C Attending Provider Active S tart: January 10, 2025 End: January 10, 2025 Team Status: Active Member Role/Relationship Status Dates Dr. Verena David MD Family Provider Active Dr. Verena David MD Primary Care Provider Active Team Status: Inactive Member Role/Relationship Status Dates Dr. Verena David MD Primary Care Provider Active Start: January 01, 2025 End: January 01, 2025 Dr. Verena David MD Attending Provider Active St art: January 01, 2025 End: January 01, 2025 Dr. Verena David MD Referring Provider Active St art: January 01, 2025 End: January 01, 2025 Team Status: Inactive Member Role/Relationship Status Dates Dr. Verena David MD Primary Care Provider Active Start: January 10, 2025 End: January 10, 2025 Jalyn Arriaga NP, EMBROIDERER-C Attending Provider Active S tart: January 10, 2025 End: January 10, 2025 Team Status: Inactive Member Role/Relationship Status Dates Dr. Verena David MD Primary Care Provider Active Start: March 13, 2025 End: March 13, 2025 Jalyn Arriaga NP, EMBROIDERER-C Attending Provider Active S tart: March 13, 2025 End: March 13, 2025 Team Status: Active Member Role/Relationship Status Dates Dr. Verena David MD Primary Care Provider Active Start: March 15, 2025 Dr. Verena David MD Attending Provider Active St art: March 15, 2025 Dr. Verena David MD Referring Provider Active St art: March 15, 2025 Team Status: Inactive Member Role/Relationship Status Dates Dr. Verena David MD Primary Care Provider Active Start: March 15, 2025 End: March 15, 2025 Dr. Verena David MD Attending Provider Active St art: March 15, 2025 End: March 15, 2025 Dr. Verena David MD Referring Provider Active St art: March 15, 2025 End: March 15, 2025 Reason for Visit (unrecogniz ed section and content) Reason Comments New Patient Reason Comments Radiology MRI Specialty Diagnoses / Procedures Referred By Contac t Referred To Contact MR IMAGING Diagnoses Spinal stenosis of lumbar region with neurogenic claudication Procedures MRI LUMBAR SPINE WO IVCON MRI SPINAL CANAL LUMBAR W/O CONTRAST MATERIAL Dominguez Perkins MD, PhD [address] [place] [address] Mr Imaging Referral ID Status Reason Start Date Expiration Date Visits Requested Visits Authorized [id number] Waiting for Response Auto-Genera zach Referral Patient Cleared - Admin/Chair man/Directo r advise to proceed 07/15/2022 08/14/2023 1 1 Reason Comments Follow Up Specialty Diagnoses / Procedures Referred By Contac t Referred To Contact Neurosurgery / SPINE SURGERY Diagnoses Follow-up exam follow up after MRI Procedures PHYS/QHP TELEPHONE EVALUATION 5-10 MIN VIDEO SPEC EST Self Dominguez Perkins MD, PhD [address] [place] [address] Referral ID Status Reason Start Date Expiration Date Visits Re quested Visits Authorized [id number] Closed 08/26/2022 08/07/2023 1 1 FOR RECORDS PERTAINING TO PATIENTS WHO ARE OR HAVE BEEN ENROLLED IN A CHEMICAL DEPENDENCY/SUBSTANCEABUSE PROGRAM, SOME INFORMATION MAY BE OMITTED. This clinical summary was aggregated from multiple sources. Caution should be exercised in using it in the provision of clinical care. This summary normalizes information from multiple sources, and as a consequence, information in this document may materially change the coding, format and clinical context of patient data. In addition, data may be omitted in some cases. CLINICAL DECISIONS SHOULD BE BASED ON THE PRIMARY CLINICAL RECORDS. [employer] [facility]. provides no warranty or guarantee of the accuracy or completeness of information in this document.
[2025-07-12 10:19] LABS: Hematocrit 41.2 % (40-54); Hemoglobin 13.8 g/dL (13.0-16.5); Immature Granulocytes Count 0.020 X10^3/uL (0.0-0.0); Mean Corp Hgb Conc 33.5 g/dL (32-36); Mean Corpuscular Volume 90.9 fL (80-94); Mean Platelet Vol. 11.0 fl (6.2-12.0); NRBC Flagged by Analyzer 0 % (0-5); Platelet Count 196 K/mm3 (150-450); RBC Distribution Width CV 12.5 % (11.6-14.6); RBC Distribution Width SD 41.6 fl (35.1-43.9); Red Blood Count 4.53 M/mm3 (4.6-6.2); White Blood Count 5.3 K/mm3 (4.4-11.0)
[2025-07-12 11:01] LABS: AST(SGOT) 21 U/L (<=37); Alanine Aminotransfer ALT/SGPT 30 U/L (<=46); Albumin, Serum 4.1 g/dL (3.5-5.0); Alkaline Phosphatase 68 U/L (40-129); Anion Gap 10 (5-15); BUN 9 mg/dL (4-19); BUN/Creat Ratio 10.1 RATIO (10-20); Calcium,Total 9.0 mg/dL (7.6-11.0); Carbon Dioxide 24.2 mmol/L (21.0-32.0); Chloride 106 mmol/L (98-108); Free T3 3.8 pg/mL (2.18-3.98); Globulin 2.6 g/dL (2.2-4.2); Glucose 106 mg/dL (70-99); Potassium 4.1 mmol/L (3.3-5.1)
== END | disposition home or self-care (01) ==
LOC: MFPLAB 08:46
PROVIDERS: PCP Family Medicine; Visit Provider Family Medicine
DX: I10 Essential (primary) hypertension (principal); R79.89 Other specified abnormal findings of blood chemistry
CPT/HCPCS: 36415; 80053; 84439; 84443; 84481; 85025